=== PATIENT | female | born 1955 | race Caucasian/White ===

== ENCOUNTER 2016-09-23 17:22 | Inpatient (IN) | payer OTHER ==
[2016-09-23] MEDS ORDERED: Aspirin Low Dose CHEW TAB* 81 MG PO ONE (19:55)
[2016-09-23 21:11] LABS: Hematocrit 36 % (35-47); Hemoglobin 11.6 g/dl (12.0-16.0); Mean Corpuscular HGB Conc 32 g/dl (31-36); Mean Corpuscular Hemoglobin 29 pg (27-31); Mean Corpuscular Volume 89 fL (80-97); Mean Platelet Volume 11 um3 (7.4-10.4); Red Blood Count 4.02 10^6/ul (4.0-5.4); Red Cell Distribution Width 14 % (10.5-15); White Blood Count 8.3 10^3/ul (3.5-10.8)
[2016-09-23 21:27] LABS: Albumin 2.4 g/dL (3.2-5.2); BUN/Creatinine Ratio 21.5 (8-20); Calcium 8.2 mg/dL (8.6-10.3); EGFR African American 35.4 (>60); EGFR Non-African American 27.5 (>60); Globulin 2.9 g/dL (2-4); Potassium 5.4 mmol/L (3.5-5.0); Total Bilirubin 0.4 mg/dL (0.2-1.0); Total Protein 5.3 g/dL (6.4-8.9)
[2016-09-23 21:28] LABS: Troponin I 0.01 ng/mL (<0.04)
[2016-09-23] MEDS: NS 0.9% 1000 ML* 2,000 ML IV ONE (21:44)
--- NOTE | 2016-09-23 22:49 | ED ---
Angel Avelar Benjamin, scribed for Ghanshyam Mitchell MD on 09/23/16 at 2043 . HPI Diabetic - HPI Summary HPI Summary: 61yo female who is diabetic c/o N/V since med change 4 days ago. Pt is off insulin and is on januvia and metformin. Pt denies nausea or abd pain now. PT also reports high blood glucose. - History Of Current Complaint Chief Complaint: EDDiabeticProb Time Seen by Provider: 09/23/16 19:54 Hx Obtained From: Patient Onset/Duration: Gradual Onset, Lasting Days - 4 days ago, Still Present Timing: Constant Severity Initially: Mild Severity Currently: Mild Aggravating: Medication Change Associated Signs & Symptoms: Nausea, Vomiting - Allergies/Home Medications Allergies/Adverse Reactions: Allergies Allergy/AdvReac Type Severity Reaction Status Date / Time No Known Allergies Allergy Verified 09/23/16 17:24 PMH/Surg Hx/FS Hx/Imm Hx Endocrine/Hematology History: Reports: Hx Diabetes Cardiovascular History: Reports: Hx Atrial Fibrillation Musculoskeletal History: Denies: Hx Osteoporosis - Surgical History Surgery Procedure, Year, and Place: CARDIAC STENT PLACEMENT; TYMPANOPLASTY; C- SECTIONx3 Infectious Disease History: No Infectious Disease History: Denies: Traveled Outside the [place] in Last 30 Days - Family History Known Family History: Positive: Diabetes Negative: Cardiac Disease, Hypertension - Social History Occupation: Unemployed Lives: With Family Alcohol Use: None Substance Use Type: Reports: None Smoking Status (MU): Former Smoker Review of Systems Constitutional: Negative Eyes: Negative ENT: Negative Cardiovascular: Negative Respiratory: Negative Positive: Vomiting, Nausea. Negative: Abdominal Pain Genitourinary: Negative Musculoskeletal: Negative Skin: Negative Neurological: Negative Psychological: Normal All Other Systems Reviewed And Are Negative: Yes Physical Exam Triage Information Reviewed: Yes Vital Signs On Initial Exam: Initial Vitals Temp Pulse Resp BP Pulse Ox 97.8 F 71 18 152/81 100 09/23/16 17:24 09/23/16 17:24 09/23/16 17:24 09/23/16 17:24 09/23/16 17:24 Vital Signs Reviewed: Yes Appearance: Positive: Well-Appearing, No Pain Distress, Well-Nourished Skin: Positive: Warm, Skin Color Reflects Adequate Perfusion, Dry Head/Face: Positive: Normal Head/Face Inspection Eyes: Positive: Normal ENT: Positive: Normal ENT inspection Neck: Positive: Supple, Nontender Respiratory/Lung Sounds: Positive: Clear to Auscultation, Breath Sounds Present Cardiovascular: Positive: RRR, Pulses are Symmetrical in both Upper and Lower Extremities Abdomen Description: Positive: Nontender, Soft Bowel Sounds: Positive: Present Musculoskeletal: Positive: Strength/ROM Intact Neurological: Positive: Sensory/Motor Intact, Alert, Oriented to Person Place, Time, CN Intact II-III Psychiatric: Positive: Affect/Mood Appropriate Diagnostics - Vital Signs Vital Signs Temp Pulse Resp BP Pulse Ox 09/23/16 18:44 72 09/23/16 17:24 97.8 F 71 18 152/81 100 - Laboratory Lab Results: Lab Results 09/23/16 09/23/16 09/23/16 Range/Units 21:00 21:00 21:00 WBC 8.3 (3.5-10.8) 10^3/ul RBC 4.02 (4.0-5.4) 10^6/ul Hgb 11.6 L (12.0-16.0) g/dl Hct 36 (35-47) % MCV 89 (80-97) fL MCH 29 (27-31) pg MCHC 32 (31-36) g/dl RDW 14 (10.5-15) % Plt Count 191 (150-450) 10^3/ul MPV 11 H (7.4-10.4) um3 Neut % (Auto) 82.7 (38-83) % Lymph % (Auto) 13.0 L (25-47) % [place] % (Auto) 3.5 (1-9) % Eos % (Auto) 0 (0-6) % Baso % (Auto) 0.8 (0-2) % Absolute Neuts (auto) 6.8 (1.5-7.7) 10^3/ul Absolute Lymphs (auto) 1.1 (1.0-4.8) 10^3/ul Absolute Monos (auto) 0.3 (0-0.8) 10^3/ul Absolute Eos (auto) 0 (0-0.6) 10^3/ul Absolute Basos (auto) 0.1 (0-0.2) 10^3/ul Absolute Nucleated RBC 0 10^3/ul Nucleated RBC % 0 Sodium 125 L (133-145) mmol/L Potassium 5.4 H (3.5-5.0) mmol/L Chloride 88 L (101-111) mmol/L Carbon Dioxide 18 L (22-32) mmol/L Anion Gap 19 H (2-11) mmol/L BUN 40 H (6-24) mg/dL Creatinine 1.86 H (0.51-0.95) mg/dL Est GFR ( Amer) 35.4 (>60) Est GFR (Non-Af Amer) 27.5 (>60) BUN/Creatinine Ratio 21.5 H (8-20) Glucose 725 H* (70-100) mg/dL Lactic Acid 1.6 (0.5-2.0) mmol/L Calcium 8.2 L (8.6-10.3) mg/dL Total Bilirubin 0.40 (0.2-1.0) mg/dL AST 14 (13-39) U/L ALT 13 (7-52) U/L Alkaline Phosphatase 74 (34-104) U/L Troponin I 0.01 (<0.04) ng/mL Total Protein 5.3 L (6.4-8.9) g/dL Albumin 2.4 L (3.2-5.2) g/dL Globulin 2.9 (2-4) g/dL Albumin/Globulin Ratio 0.8 L (1-3) Result Diagrams: 09/23/16 21:00 09/23/16 21:00 Lab Statement: Any lab studies that have been ordered have been reviewed, and results considered in the medical decision making process. Diabetic Course/Dx - Course Course Of Treatment: Ms. Torres was found to be in DKA and started on IV NS and an insulin drip. - Diagnoses Provider Diagnoses: DKA (diabetic ketoacidoses) - Physician Notifications Discussed Care of Patient With: Dr. Bolton (Hospitalist) @[id number]. - Critical Care Time Critical Care Time: 30-74 min Discharge - Discharge Plan Condition: Stable Disposition: ADMITTED TO [facility] documentation as recorded by the Angel cardenas Benjamin accurately reflects the service I personally performed and the decisions made by , Ghanshyam Mitchell MD.
[2016-09-24] MEDS: NS 0.9% 1000 ML* 2,000 ML IV ONE (00:53)
[2016-09-24] MEDS: NS 0.9% 1000 ML* 1,000 ML IV SCH ×3 (01:50→19:27)
[2016-09-24 02:34] LABS: BUN/Creatinine Ratio 23.3 (8-20); Calcium 7.1 mg/dL (8.6-10.3); EGFR African American 36.8 (>60); EGFR Non-African American 28.6 (>60); Potassium 3.7 mmol/L (3.5-5.0)
[2016-09-24 07:30] LABS: BUN/Creatinine Ratio 21.6 (8-20); Calcium 7.2 mg/dL (8.6-10.3); EGFR African American 34.6 (>60); EGFR Non-African American 26.9 (>60); Potassium 3.7 mmol/L (3.5-5.0)
[2016-09-24 07:49] LABS: Magnesium 1.6 mg/dL (1.9-2.7); Phosphorus 3.1 mg/dL (2.5-5.0)
[2016-09-24] MEDS: Aspirin EC Low Dose* 81 MG TAB.EC PO SCH (08:30)
[2016-09-24] MEDS: Enalapril TAB* 5 MG PO SCH (08:30)
[2016-09-24] MEDS: ESTRADIOL 0.5 MG PO SCH (08:31)
[2016-09-24] MEDS ORDERED: CMCS Dabigatran CAP(NF) 150 MG CAP PO SCH (09:00)
[2016-09-24] MEDS ORDERED: Sotalol TAB* 80 MG PO SCH (09:00)
[2016-09-24] MEDS ORDERED: Insulin GLARGINE(*) 1 UNITS UNIT ONE (09:04)
[2016-09-24] MEDS: Insulin GLARGINE(*) 1 UNITS UNIT SUBCUT SCH (09:09)
[2016-09-24] MEDS: Metoprolol Succinate XL TAB* 25 MG PO SCH (09:19)
[2016-09-24] MEDS ORDERED: Dextrose 50% Syringe 50 ML* 25 GM/50 ML SYRINGE IV PUSH PRN (10:03)
--- NOTE | 2016-09-24 10:52 | PN ---
Subjective Date of Service: 09/24/16 Interval History: HOSPITALIST PROGRESS NOTE Patient seen and examined at bedside. She feels better this AM. Denies abdominal pain, N/V, feels hungry. No CP, palpitations, or dyspnea. Family History: Unchanged from Admission Social History: Unchanged from Admission Past Medical History: Unchanged from Admission Objective Active Medications: Aspirin (Aspirin Ec Low Dose*) 81 mg PO DAILY [facility] Last Admin: 09/24/16 08:30 Dose: 81 mg Dabigatran (Pradaxa Cap(Nf)) 75 mg PO BID [facility] Dextrose (D50w Syringe 50 Ml*) 12.5 gm IV PUSH .FOR FS < 60 - SS PRN PRN Reason: FS < 60 Enalapril Maleate (Vasotec Tab*) 2.5 mg PO DAILY [facility] Last Admin: 09/24/16 08:30 Dose: 2.5 mg Estradiol (Estradiol (Nf)) 2 mg PO DAILY [facility] Last Admin: 09/24/16 08:31 Dose: Not Given Magnesium Sulfate 3 gm/ Sodium (Chloride) 106 mls @ 53 mls/hr IVPB ONCE ONE Stop: 09/24/16 10:43 Last Admin: 09/24/16 09:19 Dose: 53 mls/hr Sodium Chloride (Ns 0.9% 1000 Ml*) 1,000 mls @ 150 mls/hr IV PER RATE [facility] Insulin Glargine (Lantus(*)) 15 units SUBCUT Q24H [facility] Last Admin: 09/24/16 09:09 Dose: 15 units Insulin Human Lispro (Humalog*) 0 units SUBCUT ACHS [facility] PRN Reason: Protocol Metoprolol Succinate (Toprol Xl Tab*) 25 mg PO DAILY [facility] Last Admin: 09/24/16 09:19 Dose: 25 mg Vital Signs 09/24/16 09/24/16 09/24/16 07:51 08:00 08:24 Temperature 98.4 F Pulse Rate 65 Respiratory 13 13 16 Rate Blood Pressure 110/42 (mmHg) O2 Sat by Pulse 98 Oximetry 09/24/16 09/24/16 09/24/16 09:00 09:34 10:00 Temperature Pulse Rate 77 68 Respiratory 18 13 13 Rate Blood Pressure 114/52 118/46 (mmHg) O2 Sat by Pulse 99 99 Oximetry Oxygen Devices in Use Now: None Appearance: Pleasant lady lying in bed in NAD. Eyes: No Scleral Icterus Ears/Nose/Mouth/Throat: Mucous Membranes Moist Neck: Trachea Midline Respiratory: Symmetrical Chest Expansion and Respiratory Effort, Clear to Auscultation Cardiovascular: RRR - Normal S1 and S2 Abdominal: NL Sounds; No Tenderness; No Distention Extremities: - - Moderate bilateral LE pitting edema Neurological: Alert and Oriented x 3, NL Muscle Strength and Tone Lines/Tubes/Other Access: Clean, Dry and Intact Peripheral IV Nutrition: Taking PO's Result Diagrams: 09/23/16 21:00 09/24/16 07:10 Assess/Plan/Problems-Billing Assessment: Mrs. Torres is a 61yo F with PMH of type 2 DM, HTN, CAD, Afib, who was recently switched from Lantus/Novalog to oral medications, who presented to ED with mild DKA. - Patient Problems (1) DKA (diabetic ketoacidosis) Comment: - Resolved. - Suspect etiology was recent change on medications. No signs of infection at this time. - Transition from insulin drip to Lantus/Lispro sliding scale. - Resume diet. - Continue IVF. - Check A1c. - Diabetes consult requested. (2) ARNOL (acute kidney injury) Comment: - Likely acute on chronic renal failure, pre-renal in the setting of DKA. - Continue IVF and monitor renal function. (3) Atrial fibrillation Comment: - In NSR now. - D/w Cardiology - Sotalol contraindicated due to her low GFR - will d/c it and start metoprolol succinate. - Adjust Pradaxa dose to her renal function. (4) DVT prophylaxis Comment: - Pradaxa. (5) Full code status Status and Disposition: Inpatient.
[2016-09-24] MEDS: Insulin LISPRO* 1 UNITS UNIT SUBCUT SCH ×3 (11:22→21:13)
[2016-09-24 14:07] LABS: BUN/Creatinine Ratio 23.2 (8-20); Calcium 7.3 mg/dL (8.6-10.3); EGFR African American 39.8 (>60); Potassium 4.1 mmol/L (3.5-5.0)
--- NOTE | 2016-09-24 17:12 | HP ---
HISTORY AND PHYSICAL: DATE OF ADMISSION: 09/24/16 CHIEF COMPLAINT: Nausea and vomiting. HISTORY OF PRESENT ILLNESS: The patient is a 61-year-old woman who presented to [facility] with a chief complaint of nausea and vomiting and increased sugars. She said her primary care doctor last week changed her from insulin to oral medications. Since then, her sugars have been slowly climbing. She was on 20 units of Lantus on a sliding scale. His concern was that her sugars were somewhat volatile during the day. However, they have been quite high. In the ER, her sugar was over 700 when she came in. Other than her nausea and vomiting, she denied any fevers, chills, chest pain, shortness of breath or abdominal pain. She had no increased frequency or pain on urination. PAST MEDICAL HISTORY: Significant for diabetes mellitus, atrial fibrillation, coronary artery disease with stent placed in August last year, chronic kidney disease. PAST SURGICAL HISTORY: Significant partial hysterectomy, tonsillectomy and ear surgery. ALLERGIES: She has no known drug allergies. CURRENT MEDICATIONS: 1. Sotalol 40 mg twice a day. 2. Januvia 50 mg daily. 3. Metformin 1000 mg twice a day. 4. Estradiol 2 mg daily. 5. Enalapril 2.5 mg daily. 6. Pradaxa 150 mg twice daily. 7. Aspirin 81 mg daily. FAMILY HISTORY: Father is at 82, alive and well. Mother in her 70s, had breast cancer. SOCIAL HISTORY: Ex-tobacco, quit 6 months ago. No recreational drug use. No alcohol. She is unemployed. She is . She has 3 children. Her father Aris Chadwick is her healthcare proxy. REVIEW OF SYSTEMS: A 14-point review of systems was completed with the patient. All pertinent positives and negatives are in the history of present illness, otherwise negative. PHYSICAL EXAMINATION GENERAL: Please woman, lying in bed, in no acute distress. VITAL SIGNS: Blood pressure 140/45, pulse ox is 98% on room air, respiratory rate 14 breaths per minute, temperature 99 degrees, heart rate 71 beats per minute. HEENT: Normocephalic, atraumatic. Pupils equal, round, reactive to light. Moist mucous membranes. NECK: Supple. No JVD, bruits, palpable thyroid, or lymphadenopathy. CHEST: Clear to auscultation and percussion bilaterally. CARDIOVASCULAR: S1, S2 appreciated. Regular rate and rhythm. ABDOMEN: Positive bowel sounds in all 4 quadrants. Soft, nontender, nondistended. No hepatosplenomegaly. EXTREMITIES: No cyanosis, clubbing, or edema. +2 peripheral pulses bilaterally. NEURO: Alert and oriented x3. Moves all extremities. SKIN: No rashes or abnormalities. LABORATORY DATA: Sodium 125, potassium 5.4, chloride 88, CO2 18, BUN 40, creatinine 1.86, glucose 725. White count 8.3, hemoglobin 9.6, hematocrit 36, platelets 191. EKG shows normal sinus rhythm, 75 beats per minute, normal axis , some nonspecific ST-T wave changes. ASSESSMENT AND PLAN: 1. Diabetic ketoacidosis. Very mild acidosis, but very high sugar and anion gap of 19. The patient is in ICU, placed on insulin drip, normal saline at ____ _ cc an hour, fingerstick q. 1 hour and will adjust treatment accordingly when her fingersticks fall below 200. She should be placed back on her insulin after discharge. 2. Atrial fibrillation. Continue Pradaxa and sotalol. 3. FEN. NPO until diabetic ketoacidosis resolves. 4. DVT prophylaxis. She is on Pradaxa. 5. The patient is a full code. TIME SPENT: Over 75 minutes was spent on this H and P; more than 40 minutes of which was spent in direct [id number] contact with the patient in evaluation, physical exam, counseling, and coordination of care. CC: Dr. Pugh* [id number]/CPS #: [id number] JASPER
[2016-09-24 20:17] LABS: BUN/Creatinine Ratio 24.8 (8-20); Calcium 7.2 mg/dL (8.6-10.3); EGFR African American 41.8 (>60); EGFR Non-African American 32.5 (>60); Potassium 4.5 mmol/L (3.5-5.0)
[2016-09-24] MEDS: DABIGATRAN 75 MG PO SCH (21:13)
[2016-09-25] MEDS: NS 0.9% 1000 ML* 1,000 ML IV SCH ×2 (02:16→09:20)
[2016-09-25 04:53] LABS: Hematocrit 30 % (35-47); Hemoglobin 10.1 g/dl (12.0-16.0); Mean Corpuscular HGB Conc 34 g/dl (31-36); Mean Corpuscular Hemoglobin 29 pg (27-31); Mean Corpuscular Volume 86 fL (80-97); Mean Platelet Volume 11 um3 (7.4-10.4); Red Blood Count 3.44 10^6/ul (4.0-5.4); Red Cell Distribution Width 14 % (10.5-15); White Blood Count 9.7 10^3/ul (3.5-10.8)
[2016-09-25 05:07] LABS: BUN/Creatinine Ratio 25.4 (8-20); Calcium 6.9 mg/dL (8.6-10.3); EGFR Non-African American 38.9 (>60); Potassium 3.6 mmol/L (3.5-5.0)
[2016-09-25] MEDS: Insulin LISPRO* 1 UNITS UNIT SUBCUT SCH ×4 (07:30→21:17)
[2016-09-25] MEDS: DABIGATRAN 75 MG PO SCH ×2 (09:17→21:17)
[2016-09-25] MEDS: Metoprolol Succinate XL TAB* 25 MG PO SCH (09:17)
[2016-09-25] MEDS: Enalapril TAB* 5 MG PO SCH (09:18)
[2016-09-25] MEDS: Insulin GLARGINE(*) 1 UNITS UNIT SUBCUT SCH (09:18)
[2016-09-25] MEDS: Aspirin EC Low Dose* 81 MG TAB.EC PO SCH (09:20)
[2016-09-25] MEDS: ESTRADIOL 0.5 MG PO SCH (09:20)
--- NOTE | 2016-09-25 11:56 | CONSULT ---
Subjective Reason for Visit: Diabetes education Admission Date: 09/23/16 History Of Present Illness: 61 year old woman with a 30 year history of diabetes admitted from the ER in mild diabetic ketoacidosis. Her diabetes had been managed for many years with basal insulin glargine and sliding scale coverage with short acting insulin. She was changed to oral medications by her PCP and had difficulty controlling her blood sugar levels. She experienced weight loss, polyurea and polydipsia and came to the ER when she had uncontrolled vomiting. She was admitted to ICU for treatment and transferred to a medical floor once her DKA had resolved. She feels very comfortable with using her glucometer and usually checks her blood sugar levels 4-5 times/day. When she was initially diagnosed with diabetes, she was told that she was type 2 but has been managed on insulin for as long as she can remember. Patient History Surgical History: Yes Surgery Procedure, Year, and Place: CARDIAC STENT PLACEMENT; TYMPANOPLASTY; C- SECTIONx3 Lives With: Family - Father and nephew Marital Status: - x2 Employed/Unemployed: Unemployed Smoking/Tobacco use: Quit - 6 months ago Immunizations: Influenza Objective Allergies Allergy/AdvReac Type Severity Reaction Status Date / Time No Known Allergies Allergy Verified 09/23/16 17:24 Home Medications Medication Instructions Recorded Confirmed Type Aspirin [Aspirin 81 MG TAB] 81 mg PO DAILY 09/23/16 09/23/16 History Dabigatran CAP(NF) [Pradaxa 150 mg PO BID 09/23/16 09/23/16 History CAP(NF)] Enalapril Maleate 2.5 mg PO DAILY 09/23/16 09/23/16 History Estradiol (NF) 2 mg PO DAILY 09/23/16 09/23/16 History Metformin HCl [Glucophage] 1,000 mg PO BID 09/23/16 09/23/16 History Sitagliptin Phosphate [Januvia] 50 mg PO DAILY 09/23/16 09/23/16 History Sotalol TAB* [Betapace 80 MG TAB*] 40 mg PO BID 09/23/16 09/23/16 History Hospital Medications: Current Medications Aspirin (Aspirin Ec Low Dose*) 81 mg PO DAILY [facility] Last Admin: 09/25/16 09:20 Dose: 81 mg Dabigatran (Pradaxa Cap(Nf)) 75 mg PO BID [facility] Last Admin: 09/25/16 09:17 Dose: 75 mg Dextrose (D50w Syringe 50 Ml*) 12.5 gm IV PUSH .FOR FS < 60 - SS PRN PRN Reason: FS < 60 Last Admin: 09/24/16 11:16 Dose: 12.5 gm Enalapril Maleate (Vasotec Tab*) 2.5 mg PO DAILY [facility] Last Admin: 09/25/16 09:18 Dose: 2.5 mg Estradiol (Estradiol (Nf)) 2 mg PO DAILY [facility] Last Admin: 09/25/16 09:20 Dose: 2 mg Insulin Glargine (Lantus(*)) 15 units SUBCUT Q24H [facility] Last Admin: 09/25/16 09:18 Dose: 15 units Insulin Human Lispro (Humalog*) 0 units SUBCUT ACHS [facility] PRN Reason: Protocol Last Admin: 09/25/16 07:30 Dose: Not Given Metoprolol Succinate (Toprol Xl Tab*) 25 mg PO DAILY [facility] Last Admin: 09/25/16 09:17 Dose: 25 mg Lab Data: Sodium 132 mmol/L (133-145) L 09/25/16 04:43 Potassium 3.6 mmol/L (3.5-5.0) 09/25/16 04:43 BUN 35 mg/dL (6-24) H 09/25/16 04:43 Creatinine 1.38 mg/dL (0.51-0.95) H 09/25/16 04:43 Hemoglobin A1c 9.5 % (Less than 6.0) H 09/23/16 21:00 Calcium 6.9 mg/dL (8.6-10.3) L 09/25/16 04:43 Magnesium 1.6 mg/dL (1.9-2.7) L 09/24/16 07:10 AST 14 U/L (13-39) 09/23/16 21:00 ALT 13 U/L (7-52) 09/23/16 21:00 Vital Signs: Vital Signs 09/25/16 09/25/16 09/25/16 04:24 07:27 07:36 Temperature 98.2 F 98.3 F Pulse Rate 72 68 Respiratory 16 16 16 Rate Blood Pressure 139/54 138/56 (mmHg) O2 Sat by Pulse 99 98 Oximetry Height: 5 ft 4 in Weight: 146 lb 13.246 oz Body Mass Index (BMI): 25.2 Physical Exam General Appearance: Positive: Alert, Oriented x3 Plan Of Care Patient's Next Step: Will be discharged home on Lantus and Humalog. Has a good understanding of use of insulin and glucose monitoring and is very comfortable with use of both. Would like some help with dietary choices and carbohydrate counting and is willing to have outpatient teaching at [facility]. Referral To: [facility] For Further OutPT Diabetic Training Education Prior Diabetic Education: Yes Handouts Provided: CDC: Take charge of your diabetes Goals Goals: According to the [place] [employer], the following are your goals for Hemaglobin A1C, Blood Glucose, Cholesterol and Blood Pressure. Hemaglobin A1C * <7.0% for most A total of 15 minutes was spent on patient counseling and education
--- NOTE | 2016-09-25 15:33 | PN ---
Subjective Date of Service: 09/25/16 Interval History: HOSPITALIST PROGRESS NOTE Patient seen and examined at bedside. She feels better today, denies N/V. Tolerating diet well. Denies dyspnea or palpitations, but has not moved much. Family History: Unchanged from Admission Social History: Unchanged from Admission Past Medical History: Unchanged from Admission Objective Active Medications: Aspirin (Aspirin Ec Low Dose*) 81 mg PO DAILY [facility] Last Admin: 09/25/16 09:20 Dose: 81 mg Dabigatran (Pradaxa Cap(Nf)) 75 mg PO BID [facility] Last Admin: 09/25/16 09:17 Dose: 75 mg Dextrose (D50w Syringe 50 Ml*) 12.5 gm IV PUSH .FOR FS < 60 - SS PRN PRN Reason: FS < 60 Last Admin: 09/24/16 11:16 Dose: 12.5 gm Enalapril Maleate (Vasotec Tab*) 2.5 mg PO DAILY [facility] Last Admin: 09/25/16 09:18 Dose: 2.5 mg Estradiol (Estradiol (Nf)) 2 mg PO DAILY [facility] Last Admin: 09/25/16 09:20 Dose: 2 mg Insulin Glargine (Lantus(*)) 15 units SUBCUT Q24H [facility] Last Admin: 09/25/16 09:18 Dose: 15 units Insulin Human Lispro (Humalog*) 0 units SUBCUT ACHS [facility] PRN Reason: Protocol Last Admin: 09/25/16 11:57 Dose: 4 unit Metoprolol Succinate (Toprol Xl Tab*) 25 mg PO DAILY [facility] Last Admin: 09/25/16 09:17 Dose: 25 mg Vital Signs 09/25/16 09/25/16 07:36 11:09 Temperature 97.8 F Pulse Rate 74 Respiratory 16 16 Rate Blood Pressure 154/70 (mmHg) O2 Sat by Pulse 100 Oximetry Oxygen Devices in Use Now: None Appearance: Pleasant lady lying in bed in NAD. Eyes: No Scleral Icterus Ears/Nose/Mouth/Throat: Mucous Membranes Moist Neck: Trachea Midline Respiratory: Symmetrical Chest Expansion and Respiratory Effort, Clear to Auscultation Cardiovascular: NL Sounds; No Murmurs; No JVD, RRR Abdominal: NL Sounds; No Tenderness; No Distention Extremities: - - Mild bilateral LE edema Neurological: Alert and Oriented x 3, NL Muscle Strength and Tone Lines/Tubes/Other Access: Clean, Dry and Intact Peripheral IV Nutrition: Taking PO's Result Diagrams: 09/25/16 04:43 09/25/16 04:43 Assess/Plan/Problems-Billing Assessment: Mrs. Torres is a 61yo F with PMH of type 2 DM, HTN, CAD, Afib, who was recently switched from Lantus/Novalog to oral medications, who presented to ED with mild DKA. - Patient Problems (1) DKA (diabetic ketoacidosis) Comment: - Resolved. - Suspect etiology was recent change on medications. No signs of infection at this time. - Continue Lantus/Lispro sliding scale. - D/c IVF. - Diabetes consult requested. (2) ARNOL (acute kidney injury) Comment: - Likely acute on chronic renal failure, pre-renal in the setting of DKA. - Resolved, but patient already has some CKD. (3) Atrial fibrillation Comment: - In NSR now. - Her GFR appears to be below 40 at baseline, so Sotalol may not be her best choice. Cardiology consult requested to assist with antiarrhythmics. - Pradaxa dose adjusted to her renal function. (4) DVT prophylaxis Comment: - Pradaxa. (5) Full code status Status and Disposition: Inpatient. Anticipate d/c in AM.
[2016-09-25] MEDS: Sotalol TAB* 80 MG PO SCH (22:45)
--- NOTE | 2016-09-26 05:52 | CONS ---
CARDIOLOGY CONSULTATION: DATE OF CONSULT: 09/25/16 REASON FOR CONSULT: Antiarrhythmic management. CHIEF COMPLAINT ON ADMISSION: Nausea and vomiting. HISTORY OF PRESENT ILLNESS: Ms. Torres is a 61-year-old woman followed by my partner, Dr. Bell, for paroxysmal atrial fibrillation and has been on sotalol for a long period of time. The patient was admitted with nausea, vomiting, and elevated glucose levels and found to be in DKA, felt to be related to recent changes in her diabetic regimen. She has chronic renal insufficiency and her sotalol was stopped as a precaution. This consultation is to decide how to best manage her antiarrhythmics. The patient states she has never had problems with sotalol, no side effects. She states that currently she is feeling back to herself. She had questions that I could not answer about her insulin regimen when she leaves. She denies recent chest pain, pressure, heaviness, and she has been walking around the halls without any exercise intolerance. PAST MEDICAL HISTORY: The patient has a past medical history of: 1. Paroxysmal atrial fibrillation. 2. Coronary artery disease, status post stent placement, 2016. 3. Chronic renal insufficiency. 4. Diabetes. MEDICATIONS: Current inpatient medications include: 1. Aspirin 81 mg a day. 2. Pradaxa 75 mg a day. 3. Vasotec 2.5 mg a day. 4. Estradiol 2 mg a day. 5. Lantus insulin. 6. Humalog insulin. 7. Toprol-XL 25 mg a day (Sotalol 40 mg b.i.d. stopped). ALLERGIES: The patient has no known medication allergies. FAMILY HISTORY: Significant that her mother with breast cancer in her 70s. Her father is 82 and alive. SOCIAL HISTORY: The patient stopped smoking 6 months ago. No history of alcohol intake or recreational drug use. REVIEW OF SYSTEMS: No history of recent chest pain, pressure, or heaviness. No dizziness. No palpitations. See history of present illness for other pertinent positives and negatives. PHYSICAL EXAMINATION: Vital signs: On exam, the patient is 5 feet 4 inches, weighs 146 pounds with a BMI of 25.2. Blood pressure 141/55, pulse is 77 and regular, sats 99% on room air, and she is afebrile at 98.1. General appearance : Mildly overweight, somewhat older woman, in no acute distress. Psychologically, calm, cooperative, and pleasant. Neurological: Awake, alert, and oriented to person, place, and time. Cranial nerves II through XII intact. Grossly normal sensory and motor function in the upper and lower extremities. Gait is normal while walking on the floor. Skin: Warm and dry. No appreciable cyanosis. HEENT: Pupils equal and round. Mucous membranes are moist. Neck: Without increased JVP or thyromegaly appreciated. Lungs: Clear with good effort. No wheezes, rales, or rhonchi. Coronary: S1, S2 regular without murmurs or rubs. Abdomen: Soft. No epigastric discomfort. No hepatosplenomegaly or masses. Extremities: The lower extremities were warm and free of edema with easily palpable posterior tibial pulses. DIAGNOSTIC STUDIES/LAB DATA: A 12-lead ECG on admission 09/24/16 at 2017 hours shows sinus rhythm at 75 beats a minute, QRS axis +30 with normal AV and IV conduction times. She has a corrected QT interval of 444 milliseconds and a QT interval of 397 milliseconds. She does have diffuse ST depression in the precordial leads. EKG done at 1 in the morning on 09/24/16 has a corrected QT interval of 442 milliseconds. Rhythm strips today showed at 1836 hours, she had a 15-second run of SVT 150 beats a minute, P-waves are seen and this is most suggestive of ectopic atrial rhythm, but cannot rule out AFib or flutter. Labs, from today white count 9.7, hemoglobin 10, hematocrit 30, and platelets 169. Sodium 132, potassium 3.6, glucose 115, BUN 35, creatinine 1.38 (on admission sodium 125, potassium 5.4, BUN 40, creatinine 1.86, bicarb 18, and glucose 725). Troponin 0.01 on admission. Lipids from 05/06/16 shows total cholesterol 220, triglycerides 136, LDL cholesterol 119, and HDL cholesterol 74. SUMMARY: Renata Torres is a 61-year-old woman with paroxysmal atrial fibrillation , has been on sotalol 40 mg b.i.d., for many years and has longstanding renal insufficiency with a GFR estimated at 39 this admission. Sotalol is renally excreted, but her QT intervals have been stable and in looking at her creatinine , over time it is a bit higher this year and in January 2016, her creatinine was 1.08 that has been between 1.3 and 1.9 in 2017. Options going forward will be to continue the sotalol at the low dose of 40 mg b.i.d. as she has had good intervals and versus converting to a different agent. I think the only other agents that would be appropriate for her would be Multaq, which is weaker than sotalol or amiodarone. The patient informs to me that she has recently had lung nodules and is not anxious or really interested in starting on medications that could contribute to worsening pulmonary abnormalities. I propose to the patient that we resume the sotalol at her previous dose and follow up with Dr. Bell this month and within week to get a followup EKG and he can reevaluate for the possibility of different antiarrhythmics in the future. The risk and benefits of this plan and the presence of renal insufficiency was discussed with the patient. She is comfortable and prefers this plan of action as opposed to initiation of a new antiarrhythmic or risking recurrence of atrial fibrillation. CC: Hospitalist Service; Dr. Pugh; Dr. Bell* [id number]/[facility] #: [id number] MTDD
[2016-09-26] MEDS: Insulin LISPRO* 1 UNITS UNIT SUBCUT SCH (09:04)
[2016-09-26 09:16] VITALS: BP 173/70
[2016-09-26] MEDS: ESTRADIOL 0.5 MG PO SCH (09:16)
[2016-09-26] MEDS: Sotalol TAB* 80 MG PO SCH (09:17)
[2016-09-26] MEDS: Enalapril TAB* 5 MG PO SCH (09:18)
[2016-09-26] MEDS: DABIGATRAN 75 MG PO SCH (09:19)
[2016-09-26] MEDS: Aspirin EC Low Dose* 81 MG TAB.EC PO SCH (09:20)
[2016-09-26] MEDS: Insulin GLARGINE(*) 1 UNITS UNIT SUBCUT SCH (09:20)
--- NOTE | 2016-09-27 05:38 | DS ---
DISCHARGE SUMMARY: DATE OF ADMISSION: 09/24/16 DATE OF DISCHARGE: 09/26/16 PRIMARY CARE PROVIDER: Dr. Pugh. BARREL RIBS SOLDERER: Dr. Portillo. DISCHARGE DIAGNOSES: 1. Diabetic ketoacidosis. 2. Acute on chronic renal failure. 3. Hyponatremia. 4. Mild hypokalemia. 5. Metabolic acidosis. SECONDARY DIAGNOSES: 1. Type 2 diabetes. 2. Atrial fibrillation. 3. Coronary artery disease, status post stent. 4. Chronic kidney disease stage 3. MEDICATIONS: 1. Estradiol 2 mg p.o. daily. 2. Enalapril 2.5 mg p.o. daily. 3. Pradaxa 150 mg p.o. b.i.d. 4. Aspirin 81 mg p.o. daily. 5. Sotalol 40 mg p.o. b.i.d. 6. Lantus 15 units subcutaneously at bedtime. 7. NovoLog sliding scale as follows: Fingerstick 131 to 150, 1 unit; 151 to 200, 2 units; 201 to 250, 4 units; 251 to 300, 6 units; 301 to 350, 8 units; 351 to 400, 10 units; greater than 400, call PCP. HOSPITAL COURSE: Ms. Torres is a 61-year-old lady with a past medical history as stated above that presented to the emergency room with complaints of nausea, vomiting, and high sugar on her monitor. A week prior to admission, she had seen her PCP and had been changed from her usual regimen of insulin to oral medications (Januvia and metformin). The patient states that she was diagnosed with diabetes 30 years ago and she has been on insulin from the start, although she was diagnosed as type 2. In the emergency room, she was found to have a glucose of 725 with metabolic acidosis and acute renal failure. She was initially admitted to the intensive care unit on the diagnosis of DKA, started on an insulin drip, and later on transitioned back to Lantus and a rapid insulin sliding scale. The patient's hemoglobin A1c is 9.5 and she was seen in consultation by dragline operator (Mendy Chavez NP) and the plan is for the patient to follow at [facility] for further diabetes management, but at this point, the decision is to return her to an insulin regimen. With her acute renal failure, the patient's GFR became too low for sotalol and she needed metoprolol. Her renal function improved back to her baseline GFR of 38, so she was seen in consultation by Cardiology (Dr. Lazo) to decide what would be the best antiarrhythmic for this patient. Dr. Lazo's impression is that the patient has a history of paroxysmal atrial fibrillation, has been on sotalol 40 mg b.i.d. for many years and has longstanding renal insufficiency with GFR estimated at 39. Sotalol was renally excreted, but her QT interval has been stable and in looking at her creatinine over time, it has been a bit higher in 2017. Options going forward will be to continue sotalol at a low dose of 40 b.i.d. as she has had good intervals versus converting to a different agent. Dr. Lazo felt that Multaq and amiodarone would be appropriate, but the patient was not interested in changing at this time. After discussing with the patient, Dr. Lazo proposed to resume sotalol at 40 mg b.i.d. and follow up with Dr. Portillo this coming week to have a followup EKG. An EKG was performed on the day of discharge and it showed sinus rhythm with a normal QT interval. I also talked to Dr. Portillo and he is aware that the patient will follow up with him next week to monitor her QT interval. The patient received extensive diabetes education and she will try to watch her diet closely at home. She is medically stable for discharge at this time. PHYSICAL EXAMINATION: Vital Signs: Temperature 97.3, heart rate is 68, respiratory rate is 16, oxygen saturation is 99% on room air, blood pressure is 148/64. General: The patient is a pleasant lady sitting up in the bed in no acute distress. CVS: Normal S1, S2. Regular rate and rhythm. Chest: Breath sounds present bilaterally with no added sounds. Abdomen is soft. Bowel sounds are present. Extremities: No edema. Neuro: She is alert, awake, and oriented x3. Able to move all 4 extremities. DIET: Heart healthy, consistent carbohydrate diet. ACTIVITY: As tolerated. DISPOSITION: To home. STATUS IN THE HOSPITAL: Inpatient. Please keep in mind this is a summarized version of this patient's hospital stay. If you need more information, please feel free to call me at [phone] or please obtain the full medical records. TIME SPENT: Approximately 45 minutes was spent to complete this discharge. CC: Dr. Pugh; Dr. Portillo* [id number]/[facility] #: [id number] [facility]PITAL[facility]etal
== END 2016-09-26 11:47 | disposition home or self-care (01) | DRG 420 ==
LOC: ED 17:22 → ICU 09-24 01:19 → MEDTELE 09-24 18:26
PROVIDERS: ADMIT Internal Medicine; ATTEND Internal Medicine
DX: E13.10 Other specified diabetes mellitus with ketoacidosis without coma (principal); N17.9 Acute kidney failure, unspecified; N18.3 Chronic kidney disease, stage 3 (moderate); E87.1 Hypo-osmolality and hyponatremia; I48.0 Paroxysmal atrial fibrillation; E87.6 Hypokalemia; E11.22 Type 2 diabetes mellitus with diabetic chronic kidney disease; I25.10 Atherosclerotic heart disease of native coronary artery without angina pectoris; Z95.5 Presence of coronary angioplasty implant and graft; Z79.82 Long term (current) use of aspirin; Z79.4 Long term (current) use of insulin; Z79.01 Long term (current) use of anticoagulants; Z83.3 Family history of diabetes mellitus; Z87.891 Personal history of nicotine dependence; Z90.711 Acquired absence of uterus with remaining cervical stump; Z80.3 Family history of malignant neoplasm of breast
CPT/HCPCS: 36415; 80048; 80053; 82947; 83036; 83605; 83735; 84100; 84484; 85025; 87641; 93005; A9270-GY; J3475

== ENCOUNTER 2018-03-18 06:59 | Day surgery (SDC) | payer OTHER ==
--- NOTE | 2018-03-16 16:01 | HP ---
CONTINUATION OF HISTORY AND PHYSICAL DATE OF ADMISSION: 03/18/2018. ALLERGIES: No known drug allergies. FAMILY HISTORY: Mother in her late 70s from liver cancer. Father, no current medical probl ems. There is a strong family history of heart disease and diabetes. SOCIAL HISTORY: , lives with her father, currently unemployed. She is a former smoker who q uit one year ago, previously smoking one pack a day for 45 years. She denies the use of alcohol or o ther substances. MARITZA PINA, HONE OPERATOR [id number]/[facility] #: [id number]
--- NOTE | 2018-03-16 16:01 | HP ---
CC: Dr. Pugh; Dr. Kush Clay; Dr. Rodriguez * DATE OF ADMISSION: 03/18/2018. This patient is scheduled for Same Day Surgery admission by Dr. Giorgio Pace. DATE OF PREOPERATIVE HISTORY AND PHYSICAL EXAMINATION: Friday, March 16, 2018. ATTENDING SURGEON: Dr. Giorgio Pace * (dictated by Eva Pina NP). CHIEF COMPLAINT: End-stage renal disease. HISTORY OF PRESENT ILLNESS: The patient is a 62-year-old female referred to Dr. Pace from Dr. Conroy with a diagnosis of end-stage renal disease and consideration for laparoscopic placement of a peritoneal dialysis catheter. She has had a rising creatinine in the past 18 months and has discussed various methods of dialysis with Dr. Conroy and is current pursuing peritoneal dialysis. Her creatinine on 02/20/2018 was 4.47 and she will have a repeat P3 with preadmission testing today. Dr. Pace has reviewed the nature of the surgical procedure, the relevant risks and complications, and today I reviewed the typical postoperative care and recovery. The patient has had a chance to ask questions and stated that she understands the information and is satisfied with the answers given to her questions. She will sign surgical consent on the day of surgery. PAST MEDICAL HISTORY: Type 1 diabetes since 1988, she has been on a [employer] insulin pump since April 2017 and established care with Dr. Kush Clay from [facility] earlier this month, previously she was followed by Dr. Simpson. She also has a history of coronary artery disease, status post PTCA with stenting of one coronary artery September 2015. Paroxysmal atrial fibrillation, currently on anticoagulation; a Holter monitor in January 2018 revealed normal sinus rhythm with a rare PAC, rare PVC, no evidence of atrial fibrillation; hypertension; hyperlipidemia; former smoker; chronic kidney disease stage 4. PAST SURGICAL HISTORY: section times three, complete hysterectomy in [place], repair of left tympanic membrane, and tonsillectomy. MEDICATIONS: 1. Ezetimibe 10 mg p.o. daily. 2. Metoprolol 25 mg one-half tablet b.i.d. 3. Eliquis 2.5 mg one tablet every 12 hours, she took her last preoperative dose on 03/14/2018. 4. Lipitor 80 mg p.o. daily. 5. Ventolin inhaler two puffs q.i.d. prn. 6. Estradiol 2 mg one-half tablet p.o. daily. 7. Aspirin 81 mg p.o. daily, which has been on hold since 03/14/2018. 8. Torsemide 20 mg two tablets p.o. daily. 9. Insulin pump as regulated by Dr. Kush Clay from [facility]. She states it is on auto mode and shuts off when her blood glucose is 70 or less and increases when her blood glucose is high. 10. Enalapril 5 mg p.o. daily. 11. Calcitriol 0.25 mcg one capsule daily. 12. Humalog 100 units per ml in her pump. ALLERGIES: No known drug allergies. FAMILY HISTORY: Mother in her late 70s from liver cancer. Father, no current medical problems. There is a strong family history of heart disease and diabetes. SOCIAL HISTORY: , lives with her father, currently unemployed. She is a former smoker who quit one year ago, previously smoking one pack a day for 45 years. She denies the use of alcohol or other substances. REVIEW OF SYSTEMS: Constitutional: No fevers, chills, excessive fatigue or weight loss. Endocrine: Type 1 diabetes on an insulin pump. This morning's fingerstick blood sugar 127. She is followed by Dr. Kush Clay from [facility]. She did not seem knowledgeable or comfortable discussing the dosing of the insulin pump or what advice she would be given when she was fasting, so we have contacted Dr. Clay's office for assistance. No known thyroid disease. Hematologic: No easy bruising or bleeding while on the Eliquis. Respiratory: No chronic cough, no dyspnea on exertion. She quit smoking about a year ago. Cardiovascular: No anginal chest pain, palpitations, or orthopnea. No dizziness or syncopal episodes. She saw Dr. Rodriguez on 03/11/2018. Please see the attached note for details. Echocardiogram, March 2017, revealed an ejection fraction of 60 percent. Nuclear stress test, September 2017, revealed normal perfusion. Holter monitor, January 2018, revealed normal sinus rhythm with rare PAC and PVC. Gastrointestinal: No nausea, vomiting, diarrhea, GI bleeding, or constipation. Genitourinary: No dysuria. Musculoskeletal: No complaints of joint or back pain. Skin: No chronic rashes or ulcerations or skin changes. Neurologic: No headache or blurred vision or areas of focal weakness or numbness. General: No history of anesthesia complications. No history of deep vein thrombosis or pulmonary embolism. She has never received a blood transfusion. PHYSICAL EXAMINATION GENERAL: The patient is a 62-year-old female, well-developed, well-nourished, in no acute distress. VITAL SIGNS: Height 62 inches, weight 140 pounds, body mass index 25.6. Blood pressure 122/58, pulse 72 and regular, respiratory rate 16, temperature 98.6 tympanic. SKIN: Warm, dry, intact. HEENT: Benign. NECK: Supple, no cervical lymphadenopathy, no supraclavicular lymphadenopathy. BACK: No CVA tenderness. LUNGS: Breath sounds bilaterally clear and equal. HEART: Regular rate and rhythm. No murmurs or rubs appreciated. ABDOMEN: Active bowel sounds. Insulin pump right lower quadrant. No obvious masses or organomegaly or evidence of ventral hernia. Well-healed lower midline surgical scar. No incisional hernia. EXTREMITIES: Warm without edema or skin ulcerations. PELVIC: Exam deferred. RECTAL: Exam deferred. NEUROLOGIC: Alert and oriented times three, steady gait. IMPRESSION: End-stage renal disease. PLAN: Same Day Surgery admission to Dr. Pace's service for laparoscopic placement of peritoneal dialysis catheter. MARITZA PINA NP [id number]/[facility] #: [id number]/[facility] #: [id number] JASPER
[~2018-03-18 06:59] MED LIST: Buffered Lidocaine 0.9% SYRIN* 5 ML/SYR SYRINGE INTRADERM ONE; Famotidine IV* 10 MG/ML 2 ML (20 mg) IV ONE; NS 0.45% 1000 ML BAG* 1,000 ML IV SCH
[2018-03-18] MEDS ORDERED: Famotidine IV* 10 MG/ML 2 ML (20 mg) ONE (07:14)
[2018-03-18] MEDS ORDERED: ceFAZolin 2 GM in NS PREMIX(*) 2 GM/100 ML BAG IVPB ONE (07:14)
[2018-03-18] MEDS ORDERED: Heparin DIALYSIS ONLY(*) 1,000 UNITS/ML VIAL ONE (08:03)
[2018-03-18] MEDS ORDERED: Bupivacaine 0.25% EPI 200,000* 30 ML SDV ONE (08:03)
[2018-03-18] MEDS ORDERED: KETAMINE HCL* 50 MG/ML 10 ML VIAL ONE (08:06)
[2018-03-18] MEDS ORDERED: Midazolam* 1 MG/ML 5 ML VIAL (5 MG) ONE (08:06)
[2018-03-18] MEDS ORDERED: Cisatracurium* 2 MG/ML MDV 5 ML ONE (08:06)
[2018-03-18] MEDS ORDERED: fentaNYL* 50 MCG/ML 2 ML VIAL (100 MCG VIAL) ONE (08:06)
[2018-03-18] MEDS ORDERED: Lidocaine 2% PF * 5 ML VIAL ONE (08:06)
[2018-03-18] MEDS ORDERED: Ondansetron INJ* 2 MG/ML VIAL ONE (08:06)
[2018-03-18] MEDS ORDERED: Propofol* 10 MG/ML 20 ML BTL IV PUSH ONE (08:06)
[2018-03-18] MEDS ORDERED: Metoclopramide IV* 5 MG/ML 2 ML VIAL ONE (09:06)
[2018-03-18] MEDS ORDERED: EPHEDrine (Pressors)* 50 MG/ML VIAL ONE (09:17)
[2018-03-18] MEDS ORDERED: Naloxone* 0.4 MG/ML 1 ML VIAL IV PRN (09:51)
[2018-03-18] MEDS ORDERED: oxyCODONE/Acetamin 5/325 MG* TAB PO PRN (09:51)
[2018-03-18] MEDS ORDERED: fentaNYL* 50 MCG/ML 2 ML VIAL (100 MCG VIAL) IV PRN (09:51)
[2018-03-18] MEDS ORDERED: Ondansetron INJ* 2 MG/ML VIAL IV PRN (09:51)
[2018-03-18 11:37] VITALS: BP 162/71
--- NOTE | 2018-03-19 03:06 | OP ---
CC: Dr. Pugh; Dr. Kush Clay; Dr. Rodriguez; Dr. Dru Conroy * DATE OF OPERATION: 03/18/18 - SDS DATE OF : 55 SURGEON: Giorgio Pace MD MECHANICAL DEVELOPER PROVER: RHINA Garzon ANESTHESIOLOGIST: Dr. Cano. ANESTHESIA: General. PRE-OP DIAGNOSIS: End-stage renal disease. POST-OP DIAGNOSIS: End-stage renal disease. OPERATIVE PROCEDURE: Laparoscopic placement of peritoneal dialysis catheter. ESTIMATED BLOOD LOSS: Minimal. FLUIDS: Minimal crystalloid fluid given. A 57-cm Curl Cath type catheter placed in the pelvis and in the exit site at the left lower quadrant. COUNTS: Lap pad count and instrument count correct at the end of the procedure. The patient was extubated and transferred to the PACU stable. INDICATIONS: Ms. Torres is a patient with end-stage renal disease for planned dialysis. The case was discussed of a peritoneal dialysis catheter placement for this purpose. The patient agreed and consent signed. She was identified in the preoperative area. She was marked appropriately understanding where her belt line was and taken to the operating room. In the operating room, sequential devices were placed on bilateral lower extremities. Preoperative antibiotics were given and general anesthesia was induced. The patient's abdomen was then prepped and draped in the standard surgical fashion. The time- out was performed. Incision was made at the mid clavicular line just 2 fingerbreadths below the coastal margin at the palmar's point. This was deepened down to the anterior fascia, which was elevated and a Veress needle inserted into the abdominal cavity which was then allowed to insufflate to a pressure of 15 mmHg. The patient tolerated the insufflation well. Veress needle was then removed and an 8-mm trocar inserted. Laparoscope was inserted through this. There was no evidence of injury from the trocar insertion or from the Veress needle. Review of the abdomen showed no significant adhesions. The patient was status post hysterectomy. Bladder was still somewhat enlarged despite the patient voiding preoperatively. There was scant free fluid in the pelvis. An additional 5-mm trocar was then placed in the left lower quadrant. Next, a 57-cm Curl Cath catheter was inserted into the abdomen, it was placed into the pelvis, it laid in the appropriate fashion and then next, a 5-mm trocar was tunneled along the left rectus muscle and the tip of the Curl catheter was drawn in through this and brought out through this incision ensuring that both cuffs were outside the abdomen with the distal cuff being right at the peritoneal margin in the musculature. Next after injection of lidocaine along the proposed tunnel, the catheter was tunneled to the left lower quadrant port site after going superiorly first. Catheter was hooked up to the dialysate, which flowed easily without complication and then was removed with equal ease. An omentopexy was performed with an 0 Polysorb suture making a small right upper quadrant stab incision and taking up omentum at this site in the suture. Next, the abdomen was allowed to collapse, trocar was removed, and the left upper quadrant incision was closed with an 0-Polysorb suture in a simple fashion , and all the skin incisions were reapproximated with 4-0 Monocryl subcuticular sutures followed by Steri-Strips and sterile dressing. [id number]/[facility] #: [id number] JASPER
== END 2018-03-18 11:52 | disposition home or self-care (01) ==
LOC: OR 06:59
PROVIDERS: ATTEND Surgery
DX: N18.6 End stage renal disease (principal); E10.9 Type 1 diabetes mellitus without complications; Z96.41 Presence of insulin pump (external) (internal); Z79.4 Long term (current) use of insulin; I12.0 Hypertensive chronic kidney disease with stage 5 chronic kidney disease or end stage renal disease; Z79.01 Long term (current) use of anticoagulants; I25.10 Atherosclerotic heart disease of native coronary artery without angina pectoris; Z95.5 Presence of coronary angioplasty implant and graft; I48.0 Paroxysmal atrial fibrillation; Z87.891 Personal history of nicotine dependence
CPT/HCPCS: J0690; J1644; J2250; J2405; J2704; J2765; J3010

== ENCOUNTER → 2018-11-09 08:32 | Day surgery (SDC) | payer OTHER ==
[~2018-11-09 08:32] MED LIST changes: -Buffered Lidocaine 0.9% SYRIN* 5 ML/SYR SYRINGE INTRADERM ONE; +Diazepam TAB(*) 5 MG ONE; -Famotidine IV* 10 MG/ML 2 ML (20 mg) IV ONE; +Heparin 2 UNITS/ML IVPREMIX* 2,000 UNIT/1,000 ML BAG IV ONE; +Heparin(*) 1000 UNIT/ML 10 ML VIAL CATH LAB IV ONE; +Iodixanol 320 (CONTRAST) 100 ML SDV ONE; +Lidocaine 1% INJ* 10 MG/ML 30 ML SDV ONE; +Midazolam* 1 MG/ML 5 ML VIAL (5 MG) ONE; -NS 0.45% 1000 ML BAG* 1,000 ML IV SCH; +NS 0.9% 1000 ML** 1,000 ML IV SCH; +VERAPAMIL 2.5 MG/ML 2 ML VIAL ** 5 mg/2 ml ONE; +diPHENhydraMINE PO* 25 MG ONE; +fentaNYL* 50 MCG/ML 2 ML VIAL (100 MCG VIAL) ONE; +nitroGLYCERIN DRIP* 25,000 MCG/250 ML BTL ONE
[2018-11-09 12:35] VITALS: BP 168/95
--- NOTE | 2018-11-09 20:50 | CATH ---
CC: [facility] Renal Transplant Team, [place] [address]; Dr. Mares, [facility] CARDIAC CATHETERIZATION REPORT: DATE OF PROCEDURE: PROCEDURE: Cardiac catheterization including coronary angiography. INDICATION: Coronary artery disease, preop for renal and pancreatic transplant. The patient is a 63-year-old female with a history of diabetes, end-stage renal disease who is being evaluated for transplant. Cardiac catheterization was recommended by the transplant team at [facility]. DESCRIPTION OF PROCEDURE: The patient was brought to the procedure room in a fasting state. Informe d consent had been obtained prior to the procedure. All labs were reviewed. The patient was placed supine on the procedure table. Her right radial area was prepped and draped in the usual fashion. L idocaine 1% was used for local anesthesia. The radial artery was entered by Seldinger technique and a guidewire was placed. Over the guidewire, a 6-Welsh hydrophilic sheath was placed. Through the s leonora, an infusion of heparin, nitroglycerin, and verapamil was done. The patient underwent coronary angiography using a 6-Welsh TIG catheter and a 6-Welsh AR1 catheter. At the end of the procedure, all sheaths and catheters were removed. The patient tolerated the procedure well, no complications. A total of 40 cc of Omnipaque dye was used. A total of 8.5 minutes of fluoro time was used. FINDINGS: Left main artery: The left main was normal in size. It bifurcated into the LAD and circum flex. There was no evidence of stenosis. Left anterior descending artery: The LAD was normal in size. It gave off 1 large diagonal branch. The proximal LAD had moderate calcification. There was an eccentric 50% stenosis to the proximal LAD . Left circumflex artery: The circumflex artery was normal in size. It gave off 2 obtuse marginal bra nches. There was no evidence of stenosis. Right coronary artery: The RCA was a large dominant vessel. It gave off the PDA and a large postero lateral branch. The proximal portion of the right coronary artery had moderate calcification. There was a 20% stenosis of the proximal right coronary artery. The stent to the distal right coronary ar estella was open and patent with no restenosis. The posterolateral branch and PDA off the right coronar y artery had no significant disease. IMPRESSION: 1. Calcification of the left anterior descending with an eccentric 50% stenosis to the proximal left anterior descending. 2. Stent to the right coronary artery is open and patent. 3. Calcification of the proximal right coronary artery with a 20% stenosis. RECOMMENDATION: The patient will continue on maximum medical therapy. The patient will be evaluated for transplant per [facility] in [place]. [id number]/[facility] #: [id number]
== END | disposition home or self-care (01) ==
LOC: CHICATH 08:32
PROVIDERS: ATTEND Specialist
DX: I25.10 Atherosclerotic heart disease of native coronary artery without angina pectoris (principal); N18.5 Chronic kidney disease, stage 5; Z95.5 Presence of coronary angioplasty implant and graft; Z79.01 Long term (current) use of anticoagulants; E10.21 Type 1 diabetes mellitus with diabetic nephropathy; Z79.4 Long term (current) use of insulin; Z96.41 Presence of insulin pump (external) (internal); I48.0 Paroxysmal atrial fibrillation; I10 Essential (primary) hypertension; E78.5 Hyperlipidemia, unspecified; Z87.891 Personal history of nicotine dependence
CPT/HCPCS: 93454; A9270-GY; J1644; J2250; J3010

== ENCOUNTER 2019-03-11 11:25 | Emergency (ER) | payer MEDICARE, MEDICAID ==
[2019-03-11 11:58] LABS: ABS Eosinophils 0.1 10^3/ul (0-0.6); ABS Lymphocytes 0.7 10^3/ul (1.0-4.8); ABS Monocytes 0.3 10^3/ul (0-0.8); ABS Neutrophils 3.2 10^3/ul (1.5-7.7); Eosinophil % 1.7 %; Hematocrit 34 % (35-47); Hemoglobin 11.6 g/dL (12.0-16.0); Lymphocyte % 16.5 %; Mean Corpuscular HGB Conc 35 g/dL (31-36); Mean Corpuscular Hemoglobin 31 pg (27-31); Mean Corpuscular Volume 90 fL (80-97); Mean Platelet Volume 9.8 fL (7.4-10.4); Platelet Count 128 10^3/uL (150-450); Red Blood Count 3.72 10^6 /uL (3.70-4.87); Red Cell Distribution Width 15 % (10-15); White Blood Count 4.4 10^3/uL (3.5-10.8)
[2019-03-11 12:14] LABS: BUN/Creatinine Ratio 11.3 (8-20); Calcium 8.5 mg/dL (8.6-10.3); EGFR African American 12.2 (>60); EGFR Non-African American 10.1 (>60); Globulin 2.9 g/dL (2-4); Potassium 3.5 mmol/L (3.5-5.0); Total Bilirubin 0.6 mg/dL (0.2-1.0); Total Protein 5.9 g/dL (6.4-8.9)
[2019-03-11] MEDS ORDERED: NS 0.9% 1000 ML** 1,000 ML IV ONE (12:44)
[2019-03-11] MEDS ORDERED: Insulin REGULAR(*) 1 UNITS UNIT SUBCUT ONE (12:46)
--- NOTE | 2019-03-11 13:22 | ED ---
HPI Diabetic - HPI Summary HPI Summary: Patient is a 63 y/o F type 1 diabetic presenting to [facility] with complaints of high blood sugars. Patient is reported to have had a BG of 531 earlier today, PCP had instructed her to come to ED for evaluation. In ED, finger stick taken by nurse Britt was 203 BG. Patient denies Sx at present and states that she feels "fine". She does note that she had BG of around 600 last night. She has an insulin pump. On triage, pain is denied, nothing is noted to aggravate/ alleviate Sx. Home medications and allergies are reviewed. - History Of Current Complaint Chief Complaint: EDDiabeticProb Time Seen by Provider: 03/11/19 12:44 Hx Obtained From: Patient Onset/Duration: Resolved - BG 203 per nurse Britt Severity Currently: None Character: Alert Aggravating: Nothing Alleviating: Nothing Associated Signs & Symptoms: Negative - Allergies/Home Medications Allergies/Adverse Reactions: Allergies Allergy/AdvReac Type Severity Reaction Status Date / Time No Known Allergies Allergy Verified 03/11/19 11:29 PMH/Surg Hx/FS Hx/Imm Hx Endocrine/Hematology History: Reports: Hx Anticoagulant Therapy - Pradaxa, Hx Diabetes Denies: Hx Blood Disorders, Hx Blood Transfusions, Hx Bone Marrow Disease, Hx Systemic Lupus Erythematosus, Hx Sickle Cell Disease, Hx Thyroid Disease, Hx Anemia, Hx Unexplained Bleeding, Other Endocrine/Hematological Disorders Cardiovascular History: Reports: Hx Angioplasty - stent placement, Hx Atrial Fibrillation, Hx Coronary Artery Disease, Hx Hypercholesterolemia, Hx Hypertension Denies: Hx Aneurysm, Hx Angina, Hx Auto Implanted Cardiovert Defib, Hx Cardiac Arrest, Hx Cardiomegaly, Hx Congenital Heart Disease, Hx Congestive Heart Failure, Hx Deep Vein Thrombosis, Hx Embolism, Hx Hypotension, Hx Myocardial Infarction, Hx Pacemaker/ICD, Hx Peripheral Vascular Disease, Hx Rheumatic Fever, Hx Syncope, Hx Valvular Heart Disease, Other Cardiovascular Problems/Disorders Respiratory History: Reports: Hx Chronic Obstructive Pulmonary Disease (COPD) Denies: Hx Asthma, Hx Chronic Bronchitis, Hx Cystic Fibrosis, Hx Lung Cancer , Hx Pleural Effusion, Hx Pneumonia, Hx Pulmonary Edema, Hx Pulmonary Embolism, Hx Seasonal Allergies, Hx Sleep Apnea, Other Respiratory Problems/Disorders GI History: Denies: Hx Cirrhosis, Hx Crohn's Disease, Hx Diverticulosis, Hx Gall Bladder Disease, Hx Gastroesophageal Reflux Disease, Hx Gastrointestinal Bleed, Hx Hiatal Hernia, Hx Irritable Bowel, Hx Jaundice, Hx Obstructive Bowel, Hx Ileostomy, Hx Pyloric Stenosis, Hx Ulcer, Other GI Disorders History: Reports: Hx Chronic Renal Failure Denies: Hx Acute Renal Failure, Hx Benign Prostatic Hyperplasia, Hx Dialysis , Hx Kidney Infection, Hx Kidney Stones, Other Problems/Disorders Musculoskeletal History: Denies: Hx Arthritis, Hx Back Problems, Hx Bursitis, Hx Congenital Bone Abnormalities, Hx Fibromyalgia, Hx Gout, Hx Orthopedic Injury, Hx Osteoporosis, Hx Scoliosis, Hx Tendonitis, Other Musculoskeletal History Sensory History: Reports: Hx Contacts or Glasses Denies: Hx Cataracts, Hx Eye Injury, Hx Eye Prosthesis, Hx Glaucoma, Hx Legally Blind, Hx Macular Degeneration, Hx Vision Problem, Hx Deafness, Hx Hearing Aid, Hx Hearing Problem, Other Sensory Impairments Opthamlomology History: Reports: Hx Contacts or Glasses Denies: Hx Cataracts, Hx Eye Injury, Hx Eye Prosthesis, Hx Glaucoma, Hx Legally Blind, Hx Macular Degeneration, Hx Vision Problem, Other Sensory Impairments Neurological History: Denies: Hx Dementia, Hx Developmental Delay, Hx Headaches, Hx Migraine, Hx Nerve Disease, Hx Seizures, Hx Spinal Cord Injury, Hx Transient Ischemic Attacks (TIA), Other Neuro Impairments/Disorders Psychiatric History: Denies: Hx Anxiety, Hx Attention Deficit Hyperactivity Disorder, Hx Eating Disorder, Hx Depression, Hx Panic Disorder, Hx Post Traumatic Stress Disorder, Hx Inpatient Treatment, Hx Community Mental Health Tx, Hx Schizophrenia, Hx Bipolar Disorder, Hx Suicide Attempt, Hx of Violent Episodes Against Others, Hx Substance Abuse, Other Psychiatric Issues/Disorders - Cancer History Hx Chemotherapy: No Hx Radiation Therapy: No - Surgical History Surgery Procedure, Year, and Place: CARDIAC STENT PLACEMENT; TYMPANOPLASTY; C- SECTIONx3, HYSTERECTOMY. DIALYSIS CATH Hx Anesthesia Reactions: No Infectious Disease History: No Infectious Disease History: Denies: Hx Clostridium Difficile, Hx Hepatitis, Hx Human Immunodeficiency Virus (HIV), Hx of Known/Suspected MRSA, Hx Shingles, Hx Tuberculosis, History Other Infectious Disease, Traveled Outside the [place] in Last 30 Days - Family History Known Family History: Positive: Diabetes Negative: Cardiac Disease, Hypertension - Social History Alcohol Use: None Substance Use Type: Reports: None Smoking Status (MU): Former Smoker Type: Cigarettes Length of Time of Smoking/Using Tobacco: since age 13 Have You Smoked in the Last Year: Yes Review of Systems Constitutional: Other - complaints of high BG Negative: Fever - on vitals, temp is 98.8 F Neurological: Other - negative - AMS All Other Systems Reviewed And Are Negative: Yes Physical Exam - Summary Physical Exam Summary: VITAL SIGNS: Reviewed. GENERAL: Patient is a well-developed and nourished female who is lying comfortable in the stretcher. Patient is not in any acute respiratory distress. HEAD AND FACE: No signs of trauma. No ecchymosis, hematomas or skull depressions. No sinus tenderness. EYES: PERRLA, EOMI x 2, No injected conjunctiva, no nystagmus. EARS: Hearing grossly intact. Ear canals and tympanic membranes are within normal limits. MOUTH: Oropharynx within normal limits. NECK: Supple, trachea is midline, no adenopathy, no JVD, no carotid bruit, no c- spine tenderness, neck with full ROM. CHEST: Symmetric, no tenderness at palpation. LUNGS: Clear to auscultation bilaterally. No wheezing or crackles. CVS: Regular rate and rhythm, S1 and S2 present, no murmurs or gallops appreciated. ABDOMEN: Soft, non-tender. No signs of distention. No rebound, no guarding, and no masses palpated. Bowel sounds are normal. There is an insulin pump at the left side of her abdomen. EXTREMITIES: FROM in all major joints, no edema, no cyanosis or clubbing. NEURO: Alert and oriented x 3. No acute neurological deficits. Speech is normal and follows commands. SKIN: Dry and warm. Triage Information Reviewed: Yes Vital Signs On Initial Exam: Initial Vitals Temp Pulse Resp BP Pulse Ox 98.8 F 64 18 182/80 100 03/11/19 11:28 03/11/19 11:28 03/11/19 11:28 03/11/19 11:28 03/11/19 11:28 Vital Signs Reviewed: Yes Diagnostics - Vital Signs Vital Signs Temp Pulse Resp BP Pulse Ox 03/11/19 11:28 98.8 F 64 18 182/80 100 - Laboratory Lab Results: Lab Results 03/11/19 03/11/19 03/11/19 Range/Units 11:48 11:48 11:48 WBC 4.4 (3.5-10.8) 10^3/uL RBC 3.72 (3.70-4.87) 10^6 /uL Hgb 11.6 L (12.0-16.0) g/dL Hct 34 L (35-47) % MCV 90 (80-97) fL MCH 31 (27-31) pg MCHC 35 (31-36) g/dL RDW 15 (10-15) % Plt Count 128 L (150-450) 10^3/uL MPV 9.8 (7.4-10.4) fL Neut % (Auto) 73.6 % Lymph % (Auto) 16.5 % [place] % (Auto) 7.2 % Eos % (Auto) 1.7 % Baso % (Auto) 1.0 % Absolute Neuts (auto) 3.2 (1.5-7.7) 10^3/ul Absolute Lymphs (auto) 0.7 L (1.0-4.8) 10^3/ul Absolute Monos (auto) 0.3 (0-0.8) 10^3/ul Absolute Eos (auto) 0.1 (0-0.6) 10^3/ul Absolute Basos (auto) 0.0 (0-0.2) 10^3/ul Absolute Nucleated RBC 0.0 10^3/ul Nucleated RBC % 0.0 VBG pH 7.35 (7.32-7.43) VBG pCO2 56 H (41-51) mmHg VBG pO2 < 38.0 (35-45) mmHg VBG HCO3 26.2 (24-28) mmol/L VBG O2 Saturation 35.5 L (70-80) % VBG Base Excess 3.8 (0.0-4.0) mmol/L Sodium 131 L (135-145) mmol/L Potassium 3.5 (3.5-5.0) mmol/L Chloride 94 L (101-111) mmol/L Carbon Dioxide 30 (22-32) mmol/L Anion Gap 7 (2-11) mmol/L BUN 50 H (6-24) mg/dL Creatinine 4.41 H (0.51-0.95) mg/dL Est GFR ( Amer) 12.2 (>60) Est GFR (Non-Af Amer) 10.1 (>60) BUN/Creatinine Ratio 11.3 (8-20) Glucose 333 H (70-100) mg/dL Calcium 8.5 L (8.6-10.3) mg/dL Total Bilirubin 0.60 (0.2-1.0) mg/dL AST 26 (13-39) U/L ALT 43 (7-52) U/L Alkaline Phosphatase 105 H (34-104) U/L Total Protein 5.9 L (6.4-8.9) g/dL Albumin 3.0 L (3.2-5.2) g/dL Globulin 2.9 (2-4) g/dL Albumin/Globulin Ratio 1.0 (1-3) Result Diagrams: 03/11/19 11:48 03/11/19 11:48 Lab Statement: Any lab studies that have been ordered have been reviewed, and results considered in the medical decision making process. Diabetic Course/Dx - Course Assessment/Plan: Patient is a 63 y/o F type 1 diabetic presenting to [facility] with complaints of high blood sugars. Patient is reported to have had a BG of 531 earlier today, PCP had instructed her to come to ED for evaluation. In ED, finger stick taken by nurse Lorenza was 203 BG. Patient denies Sx at present and states that she feels "fine". She does note that she had BG of around 600 last night. She has an insulin pump. Blood test results without any significant abnormality except for a slight normocytic normochromic anemia, sodium is 131, chloride 94, BUN is 50 creatine 4.4 which is her baseline. The patient is an end-stage renal disease patient and on hemodialysis. Glucose is 333, calcium 8.5 and total protein 5.9. The VBG shows a pH of 7.35. The patient has been drinking fluids since she left the primary care physician office and a repeat fingerstick before I order regular insulin IV showed BG to be only 203. Since the patient is not in DKA, and the sugar was 203 the patient will be discharged home with follow-up with primary care physician and projector operator for better control of her sugar. The patient could use to be asymptomatic and alert and oriented 3. - Diagnoses Provider Diagnoses: Uncontrolled diabetes mellitus, Hyperglycemia, ESRD (end stage renal disease) Discharge ED - Sign-Out/Discharge Documenting (check all that apply): Patient Departure - discharge Patient Received Moderate/Deep Sedation with Procedure: No - Discharge Plan Condition: Stable Disposition: HOME Patient Education Materials: Diabetic Hyperglycemia (ED) Referrals: Dru Conroy MD [Primary Care Provider] - 3 Days Additional Instructions: PLEASE RETURN TO THE EMERGENCY DEPARTMENT FOR ANY NEW OR WORSENING SYMPTOMS. PLEASE FOLLOW UP WITH YOUR PRIMARY CARE PHYSICIAN WITHIN THREE DAYS. - Billing Disposition and Condition Condition: STABLE Disposition: Home - Attestation Statements Document Initiated by Larisa: Yes Documenting Scribe: MISA SÁNCHEZ Provider For Whom Larisa is Documenting (Include Credential): SCOT PHILIP MD Scribe Attestation: IMISA, scribed for SCOT PHILIP MD on 03/12/19 at 0846. Scribe Documentation Reviewed: Yes Provider Attestation: The documentation as recorded by the MISA cardenas accurately reflects the service I personally performed and the decisions made by me, SCOT PHILIP MD Status of Scribe Document: Viewed
[2019-03-11 13:50] VITALS: BP 134/76
== END 2019-03-11 13:40 | disposition home or self-care (01) ==
LOC: ED 11:25
DX: E10.65 Type 1 diabetes mellitus with hyperglycemia (principal); E10.22 Type 1 diabetes mellitus with diabetic chronic kidney disease; I12.0 Hypertensive chronic kidney disease with stage 5 chronic kidney disease or end stage renal disease; N18.6 End stage renal disease; I48.91 Unspecified atrial fibrillation; I25.10 Atherosclerotic heart disease of native coronary artery without angina pectoris; E78.00 Pure hypercholesterolemia, unspecified; Z95.5 Presence of coronary angioplasty implant and graft; Z79.01 Long term (current) use of anticoagulants; J44.9 Chronic obstructive pulmonary disease, unspecified; F90.9 Attention-deficit hyperactivity disorder, unspecified type
CPT/HCPCS: 36415; 80053; 82803; 85025; 93005; 99283

== ENCOUNTER 2019-08-28 21:41 | Emergency (ER) | payer MEDICARE, MEDICAID ==
--- OUTSIDE RECORDS SUMMARY | 2019-08-28 22:01 | XMS REPORT | Continuity of Care Document ---
:1955 External Reference #:[id number] Author Name Kush Clay MD (transmitted by agent of provider Duyen Perez) Address [address] [address] Care Team Providers Name Role Phone Dru Conroy MD - Nephrology Care Team Information Typewriter Repairer Pierre Noyola MD - Gastroenterology Care Team Information Typewriter Repairer Terri Almanza MD - Internal Medicine Care Team Information Typewriter Repairer Problems Active Problems Provider Date Type 1 diabetes mellitus uncontrolled Orlando Pugh M.D. Onset: 2016 Essential hypertension Orlando Pugh M.D. Onset: 02/13/2016 Chronic atrial fibrillation Orlando Pugh M.D. Onset: 02/13/2016 Mixed hyperlipidemia Orlando Pugh M.D. Onset: 02/13/2016 Patient post percutaneous transluminal Orlando Pugh M.D. Onset: 2015 coronary angioplasty Edema Orlando Pugh M.D. Onset: 07/22/2016 Sprain of shoulder and upper arm Millie Beal M.D. Onset: 08/02/2016 Calcium deposits in tendon Millie Beal M.D. Onset: 08/02/2016 Disorder of lung Orlando Pugh M.D. Onset: 09/02/2016 Coronary atherosclerosis Jennifer Portillo MD, [facility], Onset: 09/30/2016 [facility] Paroxysmal atrial fibrillation Orlando Pugh M.D. Onset: 10/03/2016 Hand joint pain Orlando Pugh M.D. Onset: 02/03/2017 Chronic kidney disease stage 3 Jennifer Portillo MD, [facility], Onset: 03/06/2017 [facility] Type 1 diabetes mellitus Orlando Pugh M.D. Onset: 12/23/2017 Adult health examination Orlando Pugh M.D. Onset: 12/23/2017 Gastroduodenitis Orlando Pugh M.D. Onset: 01/14/2018 Social History Type Date Description Comments Sex Unknown Tobacco Use Start: Unknown End: Former Cigarette Smoker Unknown Tobacco Use Start: Unknown End: Former Cigarette Smoker 1 Unknown Pack Daily Cigarette Use Pack Years - 45 Smoking Status Reviewed: 07/22/19 Former Cigarette Smoker 1 Pack Daily ETOH Use Denies alcohol use Recreational Drug Use Denies Drug Use Tobacco Use Start: Unknown End: Patient is a former smoker Unknown Exercise Type/Frequency Does not exercise Allergies, Adverse Reactions, Alerts Description No Known Drug Allergies Medications Active Medications SIG Qnty Indications Ordering Date Provider Humulin N Kwikpen 10 units in the 9ml E10.22 Kush Clay MD 07/22/2019 evening or as 100Unit/ML Supn directed; MDD 25 Azithromycin two tabs day one, 6tabs J20.9 Odilia Varn, 07/14/2019 250mg one daily till N.P. Tablets gone Fluticasone 2 sprays each 16gm J20.9 Odilia Varn, 07/14/2019 Propionate nostril daily as N.P. 50mcg/Act needed Suspension Benzonatate one by mouth 30caps J20.9 Odilia Varn, 07/14/2019 100mg three times daily N.P. Capsules as needed for cough Enalapril Maleate 2 by mouth every 60tabs Terri Almanza MD 04/28/2019 5mg day Tablets Novolog Flexpen 4 units with each 15ml E10.22 Kush Clay MD 04/13/2019 meal, 3 times per 100Unit/ML Solution day MDD 30 units Pen-Inject Pen [place] 11/05" use 4 times daily 200units E10.22 Kush Clay MD 2018 31G with Basaglar and X 8 mm Misc Novolog insulin Torsemide 3 by mouth twice Kush Clay MD 08/05/2018 20mg daily Tablets Lancet Device use 4 times daily 1units Kush Clay MD 08/05/2018 Misc with lancet to check blood sugar. Dispense 1 lancing device Metolazone 1 tab by mouth 30 14tabs Orlando 05/21/2018 5mg minutes in the Dianne Pugh Tablets morning before torsemide ( Not Taking ) [id number] Standard mmt 864 replace 30units Kush Clay MD 03/31/2018 every other day 4"X5-1/2 Misc dx e10.9 Ezetimibe take 10mg by 30tabs E78.5 Tico Carlos 03/03/2018 10mg mouth daily Dinane Rodriguez Tablets Metoprolol Tartrate 1/2 tab by mouth 90tabs Giorgio Jara, 02/17/2018 twice a day DO FACC 25mg Tablets Eliquis take 1 tablet by 180tabs I48.0 Tico Gonzalez 01/08/2018 2.5mg Tablets mouth every 12 iDanne Rodriguez hours Lipitor 1 by mouth every 90tabs Tico Gonzalez 06/17/2017 80mg Tablets day Dianne Rodriguez Ventolin HFA Inhale Two Puffs 18units J44.9 Terri Almanza MD 08/30/2016 By Mouth Four 108(90Base) mcg/Act Times A Day as Aerosol Needed Glucagon Emergency use as directed 2units Orlando 02/27/2016 Dianne Pugh 1mg Kit Nitrostat one sl q5min up 25tabs I25.10 Tico Gonzalez 02/27/2016 0.4mg to 3 doses as Dianne Rodriguez Tablets Sub needed Estradiol 1/2 tab by mouth 30tabs Terri Almanza MD 2mg Tablets every day Aspirin 1 by mouth every Unknown 81mg Tablets day Calcitcassandra Take One Capsule Unknown 0.25mcg By Mouth Every Capsules Other Day Contour Next Link Use 4 Unknown Blood Glucose Monitoring System w/Device Kit Contour Next Blood use 6 times daily 200units E10.22 Kush Clay MD Glucose Test with insulin Strips injection and as needed Auryxia 1 by mouth three Unknown 1GM 210 times a day mg(Fe) Tablets contains 200 mg iron History Medications Freestyle Rashid 14 use at least [address] [facility], 04/13/2019 - Day/[place]/Flash times daily 05/04/2019 Monitoring System with sensor Device Freestyle Rashid [address] place one 2units E10.[address] [facility], 04/13/2019 - Day/Sensor/Flash sensor every 05/04/2019 Monitoring System 14 days Misc Novolin R Relion 6 units with 10ml E10.[address] [facility], 04/09/2019 - 100Unit/ML meals, mdd 30 05/04/2019 Solution Novolin N Relion 12 units at 10ml E10.[address] [facility], 04/09/2019 - 100Unit/ML bedtime, MDD 05/04/2019 Suspension 30 Medications Administered in Office Medication SIG Qnty Indications Ordering Provider Date Inj, Regadenoson, 0.1 MG Tico Rodriguez M.D. 10/16/2018 Injection Technetium TC 99M TetrofosminTico M.D. 10/16/2018 Per Unit Dose Up To 40 Millicuries Injection Technetium TC 99M TetrofosminTico M.D. 10/16/2018 Per Unit Dose Up To 40 Millicuries Injection PPD Unknown 05/26/2018 Injection Inj, Regadenoson, 0.1 MG Tico Rodriguez M.D. 10/17/2017 Injection Technetium TC 99M TetrofosminTico M.D. 10/17/2017 Per Unit Dose Up To 40 Millicuries Injection Immunizations CPT Code Status Date Vaccine Reaction Lot # [id number] Given 08/12/2018 Pneumococcal Conjugate no immediate reaction [id number] Vaccine 13 Valent For noted Intramuscular Use 30556 Given 04/14/2018 Hepatitis B Vaccine Adult [id number] Dosage 63739 Given 04/14/2018 Influenza Virus Vaccine, [id number] Quadrivalent, Split, Preservative Free 19393 Given 12/23/2017 Measles Mumps And Rubella [id number] MMR 66803 Given 11/11/2017 Hepatitis B Vaccine Adult [id number] Dosage 92042 Given 10/10/2017 Hepatitis B Vaccine Adult [id number] Dosage 48602 Given 04/02/2016 Influ Virus Vaccine, no reaction, pt [id number] Quadrivalent, Split Virus, tolerated well Im Fluzone not PF Vital Signs Date Vital Result Comment 07/22/2019 1:04pm Height 62 inches 5'2" Weight 141.00 lb w/ shoes Heart Rate 63 /min BP Systolic Sitting 117 mmHg BP Diastolic Sitting 60 mmHg BMI (Body Mass Index) 25.8 kg/m2 07/14/2019 11:17am Height 62 inches 5'2" Weight 139.00 lb Heart Rate 64 /min BP Systolic 91 mmHg BP Diastolic 51 mmHg Body Temperature 97.6 F O2 % BldC Oximetry 97 % BMI (Body Mass Index) 25.4 kg/m2 Results Test Acquired Date Facility Test Result H/L Range Note Laboratory test 04/23/2019 [facility] C-Peptide <0.1 ng/mL Abnormal 1.1 - 4.4 1 finding [address] [place] [address] [phone] Fructosamine 268 mcmol/L 200 - 285 2 Lipid Profile 04/23/2019 [facility] Triglycerides 68 mg/dL 3 (Trig/Chol/HDL) [address] [place] [address] [phone] Cholesterol 120 mg/dL 4 HDL Cholesterol 51.6 mg/dL 5 LDL Cholesterol 55 mg/dL 6 HGB + HCT 04/08/2019 N2N/CCD Import Hematocrit 31.7 Low 37.0 - 47.0 Hemoglobin 10.7 Low 12.0 - 16.0 HCT Calc (HGBX3) 32.1 Low 37.0 - 47.0 PTH Intact 03/25/2019 N2N/CCD Import PTH Intact 132 High 18 - 80 Ferritin 03/25/2019 N2N/CCD Import Ferritin 194 10 - 291 Hemoglobin A1c % 03/25/2019 N2N/CCD Import Hemoglobin A1c % 7.4 High 0.0 - 5.6 Calcium Corrected 03/25/2019 N2N/CCD Import Calcium Corrected 9.3 8.7 - 10.4 Alt/SGPT 03/25/2019 N2N/CCD Import Alt/SGPT 41 10 - 49 Glucose 03/25/2019 N2N/CCD Import Glucose 145 High 70 - 99 CBC With Autodiff 03/25/2019 N2N/CCD Import WBC 4.2 Low 4.5 - 11.0 RBC 3.47 Low 4.20 - 5.40 Hematocrit 32.3 Low 37.0 - 47.0 Hemoglobin 10.8 Low 12.0 - 16.0 MCV 93.1 80.0 - 100.0 MCH 31.2 High 27.0 - 31.0 MCHC 33.5 32.0 - 36.0 Platelet-CT 118 Low 150 - 400 Neuts-Abs 2715.12 2000 - 8800 Lymphs-Abs 993.03 Low 1100 - 4800 Monos-Abs 243.02 0 - 1100 Basos-Abs 71.23 0 - 400 Eosins-Abs 167.60 0 - 700 HCT Calc (HGBX3) 32.4 Low 37.0 - 47.0 Basophils 1.7 Neutrophils 64.8 Lymphocytes 23.7 Monocytes 5.8 Eosinophils 4.0 RDW 14.4 11.0 - 15.0 Chem I HD 03/25/2019 N2N/CCD Import Alk Phos 100 46 - 116 Albumin 2.8 Low 3.2 - 4.8 Calcium 8.3 Low 8.7 - 10.4 Chloride 99 99 - 109 Co2 31 20 - 31 LDH, Total 270 High 120 - 246 Phosphorus 4.0 2.4 - 5.1 Potassium 3.5 3.5 - 5.5 Ast/Sgot 29 0 - 34 Protein - Total 4.8 Low 5.7 - 8.2 A/G Ratio 1.4 1 - 2.5 Globulin 2.0 0.9 - 5 [place] Product 33.2 21 - 53 [place] Corrected 37.2 21 - 53 Iron Panel 03/25/2019 N2N/CCD Import Iron 83 50 - 170 Iron Saturation 38 16 - 46 Tibc 221 Low 250 - 450 Uibc 138 80 - 375 Lipid Profile 03/25/2019 N2N/CCD Import Cholesterol 128 0 - 199 Triglycerides 88 0 - 149 HDL 54 40 - 60 Chol/HDL Ratio 2.4 Low 3.3 - 5 LDL 56 0 - 99 VLDL-Chol (Calc) 18 0 - 29 Venous Blood Gas 03/11/2019 N2N/CCD Import Venous Bicarbonate Hco3 26.2 24-28 Venous Blood Base Excess 3.8 0.0-4.0 Venous O2 Saturation 35.5 Low 70-80 Venous Po2 < 38.0 35-45 Venous Pco2 56 High 41-51 Venous Blood PH 7.35 7.32-7.43 CBC Auto Diff 03/11/2019 N2N/CCD Import Nucleated Red Blood Cells % 0.0 Basophil % 1.0 Eosinophil % 1.7 Monocyte % 7.2 Lymphocyte % 16.5 Granulocyte % 73.6 Abs Nucleated RBC 0.0 Abs Basophils 0.0 0-0.2 Abs Eosinophils 0.1 0-0.6 Abs Monocytes 0.3 0-0.8 Abs Lymphocytes 0.7 Low 1.0-4.8 Abs Neutrophils 3.2 1.5-7.7 Mean Platelet Volume 9.8 7.4-10.4 Platelet Count 128 Low 150-450 Red Cell Distribution Width 15 10-15 Mean Corpuscular HGB Conc 35 31-36 Mean Corpuscular Hemoglobin 31 27-31 Mean Corpuscular Volume 90 80-97 Hematocrit 34 Low 35-47 Hemoglobin 11.6 Low 12.0-16.0 Red Blood Count 3.72 3.70-4.87 White Blood Count 4.4 3.5-10.8 Comprehensive Metabolic 03/11/2019 N2N/CCD Import Blood Urea Nitrogen 50 High 6-24 Panel Egfr 12.2 >60 Egfr Non- 10.1 >60 Ast 26 13-39 Alt 43 7-52 Alkaline Phosphatase 105 High 34-104 Total Bilirubin 0.60 0.2-1.0 Albumin/Globulin Ratio 1.0 1-3 Globulin 2.9 2-4 Albumin 3.0 Low 3.2-5.2 Total Protein 5.9 Low 6.4-8.9 Calcium 8.5 Low 8.6-10.3 BUN/Creatinine Ratio 11.3 8-20 Creatinine 4.41 High 0.51-0.95 Glucose 333 High 70-100 Anion Gap 7 2-11 Co2 Carbon Dioxide 30 22-32 Chloride 94 Low 101-111 Potassium 3.5 3.5-5.0 Sodium 131 Low 135-145 Point Of Care 03/11/2019 N2N/CCD Import Point Of Care 208 High 70-100 Glucose Glucose 0416 03/11/2019 N2N/CCD Import BUN 32 High 9 - 23 Creatinine 3.59 High 0.50 - 1.10 NPCR PD 0.71 Creat-PD 1.71 Urea-PD 19 Urea CLR Ur/Bsa 5.1 Low 64 - 99 Cre CLR Ur/Bsa 13 Low 75 - 115 Urea CLR Ur 4.8 Minuts Collctd-Ur 1440 Tot.Vol.-Urine 1180 Tot.Vol.-PDF [id number] Urea Gen Rate 6.5 Urea Nit Urine 188 Creat-Ur 52.59 Bsa ([place]) 1.64 Body WT (LBS) 140 Height (Inches) 62 TBW Tripp 30.43 Pna (PD) 48.2 Npna-PD 0.92 Loren (PD) 4.4 Min Goal:KT/V PD 2.1 PCR PD 37.4 Amputation Factor 0 Cre CLR Ur 12 Low 88 - 128 L/WK/1.73 Resid cc 89.19 L/WK PDF cc 37.89 L/WK/1.73 Total cc 129.06 L/WK Resid cc 84.76 L/WK/1.73 PDF cc 39.87 L/WK Total cc 122.65 KT/V PDF 1.55 KT/V Residual 1.59 KT/V Total PD 3.15 HGB + HCT 03/11/2019 N2N/CCD Import Hematocrit 34.5 Low 37.0 - 47.0 Hemoglobin 11.1 Low 12.0 - 16.0 HCT Calc (HGBX3) 33.3 Low 37.0 - 47.0 Glucose 03/11/2019 N2N/CCD Import Glucose 328 High 70 - 99 CBC Auto Diff 02/25/2019 N2N/CCD Import Mean Corpuscular Volume 90 80- 97 Hematocrit 31 Low 35-47 Hemoglobin 10.9 Low 12.0-16.0 Red Blood Count 3.45 Low 3.70-4.87 White Blood Count 4.7 3.5-10.8 Nucleated Red Blood Cells % 0.0 Basophil % 0.8 Eosinophil % 3.4 Monocyte % 7.9 Lymphocyte % 21.7 Granulocyte % 66.2 Abs Nucleated RBC 0.0 Abs Basophils 0.0 0-0.2 Abs Eosinophils 0.2 0-0.6 Abs Monocytes 0.4 0-0.8 Abs Lymphocytes 1.0 1.0-4.8 Abs Neutrophils 3.1 1.5-7.7 Mean Platelet Volume 12.0 High 7.4-10.4 Platelet Count 92 Low 150-450 Red Cell Distribution Width 14 10-15 Mean Corpuscular HGB Conc 35 31-36 Mean Corpuscular Hemoglobin 32 High 27-31 Comprehensive Metabolic 02/24/2019 N2N/CCD Import Egfr 14.0 >60 Panel English Egfr Non- 11.6 >60 Ast 35 13-39 Alt 49 7-52 Alkaline Phosphatase 136 High 34-104 Total Bilirubin 0.50 0.2-1.0 Albumin/Globulin Ratio 1.1 1-3 Globulin 2.3 2-4 Albumin 2.6 Low 3.2-5.2 Total Protein 4.9 Low 6.4-8.9 Calcium 8.5 Low 8.6-10.3 BUN/Creatinine Ratio 8.7 8-20 One Over Creatinine 0.25 Creatinine 3.91 High 0.51-0.95 Blood Urea Nitrogen 34 High 6-24 Glucose 159 High 70-100 Anion Gap 6 2-11 Co2 Carbon Dioxide 32 22-32 Chloride 97 Low 101-111 Potassium 3.8 3.5-5.0 Sodium 135 135-145 Phosphorus 02/24/2019 N2N/CCD Import Phosphorus 3.7 2.5-5.0 Iron Iron Bind Cap 02/24/2019 N2N/CCD Import % Iron Saturation 43 15- 55 Transferrin 153 Low 203-362 Total Iron Binding Capacity 214 Low 250-450 Unsaturated Iron Binding < 199 Iron 91 50-212 Iron Panel 02/24/2019 N2N/CCD Import Iron 91 65-170 Iron Saturation 43 20-55 Tibc 214 Low 228-428 Chem I HD 02/24/2019 N2N/CCD Import Albumin 2.6 Low 3.5-5.0 Calcium 8.5 8.4-10.2 Chloride 97 Low 98-107 Co2 32 22-33 Phosphorus 3.7 2.5-4.5 Potassium 3.8 3.5-5.0 CBC With Autodiff 02/24/2019 N2N/CCD Import WBC 4.7 4.5-11.0 RBC 3.45 Low 4.60-6.20 Hematocrit 31 Low 33.0-36.0 Hemoglobin 10.9 Low 14.0-18.0 Glucose 02/24/2019 N2N/CCD Import Glucose 159 High 70-105 Calcium Corrected 02/24/2019 N2N/CCD Import Calcium Corrected 9.6 8.7 - 10.4 C[place]phos Corrected 02/24/2019 N2N/CCD Import [place] Corrected 35.5 21 - 46 PTH Intact 02/11/2019 N2N/CCD Import PTH Intact 80 18 - 80 HGB + HCT 02/11/2019 N2N/CCD Import Hematocrit 30.0 Low 37.0 - 47.0 Hemoglobin 10.5 Low 12.0 - 16.0 HCT Calc (HGBX3) 31.5 Low 37.0 - 47.0 Iron Panel 01/28/2019 N2N/CCD Import Iron 77 50 - 170 Iron Saturation 32 16 - 46 Tibc 241 Low 250 - 450 Uibc 164 80 - 375 Chem I HD 01/28/2019 N2N/CCD Import Alk Phos 137 High 46 - 116 Albumin 2.8 Low 3.2 - 4.8 Calcium 8.1 Low 8.7 - 10.4 Chloride 96 Low 99 - 109 Co2 34 High 20 - 31 LDH, Total 283 High 120 - 246 Phosphorus 3.8 2.4 - 5.1 Potassium 3.5 3.5 - 5.5 Ast/Sgot 51 High 0 - 34 Protein - Total 4.8 Low 5.7 - 8.2 A/G Ratio 1.4 1 - 2.5 Globulin 2.0 0.9 - 5 [place] Product 30.8 21 - 53 [place] Corrected 34.6 21 - 53 CBC With Autodiff 01/28/2019 N2N/CCD Import RBC 3.52 Low 4.20 - 5.40 Hematocrit 32.1 Low 37.0 - 47.0 Hemoglobin 11.0 Low 12.0 - 16.0 MCV 91.1 80.0 - 100.0 MCH 31.2 High 27.0 - 31.0 MCHC 34.2 32.0 - 36.0 Platelet-CT 125 Low 150 - 400 Neuts-Abs 2900.88 2000 - 8800 Lymphs-Abs 1239.30 1100 - 4800 Monos-Abs 247.86 0 - 1100 Basos-Abs 27.54 0 - 400 Eosins-Abs 174.42 0 - 700 HCT Calc (HGBX3) 33.0 Low 37.0 - 47.0 Basophils 0.6 Neutrophils 63.2 Lymphocytes 27.0 Monocytes 5.4 Eosinophils 3.8 RDW 13.0 11.0 - 15.0 WBC 4.6 4.5 - 11.0 BUN 01/28/2019 N2N/CCD Import BUN 39 High 9 - 23 Creatinine 01/28/2019 N2N/CCD Import Creatinine 4.08 High 0.50 - 1.10 Glucose 01/28/2019 N2N/CCD Import Glucose 243 High 70 - 99 Alt/SGPT 01/28/2019 N2N/CCD Import Alt/SGPT 97 High 10 - 49 Calcium Corrected 01/28/2019 N2N/CCD Import Calcium Corrected 9.1 8.7 - 10.4 1 Test Performed by: [facility] [address] [place] [address] Poker Dealer: Farrukh Edge M.D. Ph.D.; CLIA# [id number] 2 Test Performed by: [facility] [address] [place] [address] Poker Dealer: Farrukh Edge M.D. Ph.D.; CLIA# [id number] 3 Desirable: <150 Borderline High: 150-199 High: 200-499 Very High: >500 4 Desirable: <200 Borderline High: 200-239 High: >239 5 Low: <40 Desirable: 40-60 High: >60 6 Desirable: <100 Near Optimal: 100-129 Borderline High: 130-159 High: 160-189 Very High: >189 Procedures Date Code Description Status 06/22/2019 [address] Dialysis Per Full Month 20 Yrs Completed 07/30/2018 [id number] Mammogram Completed 12/08/2017 [id number] Colonoscopy Completed 07/03/2017 [id number] Mammogram Completed 08/19/2016 [id number] Bone Mineral Density Test Completed 07/02/2016 14204664 Mammogram Completed 03/05/2016 994675684 Diabetic Retinal Eye Exam Completed 06/23/2011 [id number] Colonoscopy Completed 06/23/2011 [id number] Mammogram Completed Medical Devices Description No Information Available Encounters Type Date Location Provider Dx Diagnosis Office Visit 07/14/2019 [facility] Internal Odilia Conway J20.9 Acute bronchitis , 11:20a Medicine - [facility] unspecified Office Visit 05/10/2019 Pulmonology And Kasandra Schaffer98.4 Other disorders of 11:30a [facility] lung [facility] Office Visit 05/04/2019 Miguel Munguia and Kush Clay MD E10.22 Type 1 diabetes 9:00a [facility] mellitus w diabetic chronic kidney disease N18.5 Chronic kidney disease, stage 5 Office Visit 04/22/2019 11:40a Miguel Munguia and Kush Clay, E10.22 Type 1 diabetes [facility] mellitus w diabetic chronic kidney disease N18.6 End stage renal disease Office Visit 03/16/2019 10:40a [facility] Internal Terri Almanza, E10.22 Type 1 [facility] chronic kidney disease N18.3 Chronic kidney disease, stage 3 (moderate) J44.9 Chronic obstructive pulmonary disease, unspecified Z98.61 Coronary angioplasty status I25.10 Athscl heart disease of [place] coronary artery w/o ang pctrs N95.1 Menopausal and female climacteric states Office Visit 03/11/2019 1:40p [facility] Kush Clay, E10.22 Type 1 diabetes [facility] mellitus w diabetic chronic kidney disease N18.6 End stage renal disease Assessments Date Code Description Provider 07/22/2019 E10.22 Type 1 diabetes mellitus with diabetic Kush Clay MD chronic kidney disease 07/22/2019 Z79.4 exterminator termite (current) use of insulin Kush Clay MD 07/22/2019 N18.6 End stage renal disease Kush Clay MD 07/14/2019 J20.9 Acute bronchitis, unspecified Odilia Conway, N.P. 06/22/2019 N18.6 End stage renal disease Isaiah Quan MD 06/09/2019 E10.22 Type 1 diabetes mellitus with diabetic Nurse Visit Endocrinology chronic kidney disease 06/09/2019 N18.5 Chronic kidney disease, stage 5 Nurse Visit Endocrinology 05/10/2019 J98.4 Other disorders of lung Azalia Pérez MD 05/04/2019 E10.22 Type 1 diabetes mellitus with diabetic Kush Clay MD chronic kidney diseas 05/04/2019 N18.5 Chronic kidney disease, stage 5 Kush Clay MD 04/22/2019 E10.22 Type 1 diabetes mellitus with diabetic Kush Clay MD chronic kidney diseas 04/22/2019 N18.6 End stage renal disease Kuhs Clay MD 03/16/2019 E10.22 Type 1 diabetes mellitus with diabetic Terri Almanza MD chronic kidney diseas 03/16/2019 N18.3 Chronic kidney disease, stage 3 Terri Almanza MD (moderate) 03/16/2019 J44.9 Chronic obstructive pulmonary disease, Terri Almanza MD unspecified 03/16/2019 Z98.61 Coronary angioplasty status Terri Almanza MD 03/16/2019 I25.10 Atherosclerotic heart disease of [place] Terri Almanza MD coronary artery with 03/16/2019 N95.1 Menopausal and female climacteric states Terri Almanza MD 03/11/2019 E10.22 Type 1 diabetes mellitus with diabetic Kush Clay MD chronic kidney diseas 03/11/2019 N18.6 End stage renal disease Kush Clay MD Plan of Treatment Future Appointment(s):11/04/2019 11:00 am - Kush Clay MD at [facility]09/14/2019 10:40 am - Terri Almanza MD at [facility] Internal Medicine - [facility]07/22/2019 - Kush Clay MDE10.22 Type 1 diabetes mellitus with diabetic chronic kidney diseaseNew Medication:Humulin N Kwikpen 100 Unit/ ML - 10 units in the evening or as directed; MDD 25Follow up:3 monthsInstructions:1. Stop Basaglar. 2. Start Humulin N 10 units at bedtime. 3. Increase Humulin N by 1 unit every 2-3 days until your morning blood glucose is less than 140mg/dL. 4. Return in 4-6 weeks for non-fasting blood tests. 5. Return in 3 months for a follow-up visit.Z79.4 USP (current) use of gacugfkY08.6 End stage renal disease Functional Status Description No Information Available Mental Status Description No Information Available Referrals Description No Information Available
--- OUTSIDE RECORDS SUMMARY | 2019-08-28 22:01 | XMS REPORT | Continuity of Care Document ---
:1955 External Reference #:[id number] Author Name Odilia Conway N.P. (transmitted by agent of provider Jessica Lim) Address [address], [place] [address] Care Team Providers Name Role Phone Dru Conroy MD - Nephrology Care Team Information Box Spinner Pierre Noyola MD - Gastroenterology Care Team Information Box Spinner Terri Almanza MD - Internal Medicine Care Team Information Box Spinner [phone] Problems Active Problems Provider Date Type 1 [...] Onset: 09/02/2016 Coronary atherosclerosis Jennifer Portillo MD, [facility], Onset: 09/30/2016 [facility] Paroxysmal atrial fibrillation Orlando Pugh M.D. Onset: 10/03/2016 Hand joint pain Orlando Pugh M.D. Onset: 02/03/2017 Chronic kidney disease stage 3 Jennifer Portillo MD, [facility], Onset: 03/06/2017 [facility] Type 1 diabetes mellitus Orlando Pugh M.D. Onset: 12/23/2017 Adult health examination Orlando Pugh M.D. Onset: 12/23/2017 Gastroduodenitis Orlando Pugh M.D. Onset: 01/14/2018 Social History Type Date Description Comments Sex Unknown Tobacco Use Start: Unknown End: Former Cigarette Smoker Unknown Tobacco Use Start: Unknown End: Former Cigarette Smoker 1 Unknown Pack Daily Cigarette Use Pack Years - 45 Smoking Status Reviewed: 07/14/19 Former Cigarette Smoker 1 Pack Daily ETOH Use Denies alcohol use Recreational Drug Use Denies Drug Use Tobacco Use Start: Unknown End: Patient is a former smoker Unknown Exercise Type/Frequency Does not exercise Allergies, Adverse Reactions, Alerts Description No Known Drug Allergies Medications Active Medications SIG Qnty Indications Ordering Date Provider Azithromycin two tabs day one, 6tabs J20.9 [...] MD 04/28/2019 5mg day Tablets Novolog Flexpen 6 units with each 15ml E10.22 Kush Clay MD 04/13/2019 meal, 3 times per 100Unit/ML Solution day MDD 30 units Pen-Inject Pen Manning 11/05" use 4 times daily 200units E10.22 Kush Clay MD 2018 31G with Basaglar and X 8 mm Misc Novolog insulin Basaglar Kwikpen inject 12 units 9ml E10.22 Kush Clay MD 12/03/2018 s/c once daily or 100Unit/ML Solution as directed, mdd Pen-Inject 20 Torsemide 3 by mouth twice Kush Clay MD 08/05/2018 20mg daily Tablets Lancet Device use 4 times daily 1units Kush Clay MD 08/05/2018 [facility] with lancet to check blood sugar. Dispense 1 lancing device Metolazone 1 tab by mouth 30 14tabs [place] 05/21/2018 5mg minutes in the Dianne Pugh Tablets morning before torsemide ( Not Taking ) [id number] Standard mmt 864 replace 30units Kush Clay MD 03/31/2018 every other day 4"X5-1/2 Misc dx e10.9 Ezetimibe take 10mg by 30tabs E78.5 Tico Carlos 03/03/2018 10mg mouth daily Dianne Rodriguez Tablets Metoprolol Tartrate 1/2 tab by mouth 90tabs Girogio Jara, 02/17/2018 twice a day DO FACC 25mg Tablets Eliquis take 1 tablet by 180tabs I48.0 Tico Gonzalez 01/08/2018 2.5mg Tablets mouth every 12 Dianne Rodriguez hours Lipitor 1 by mouth every [...] Gonzalez 02/27/2016 0.4mg to 3 doses as Michael MOlesyaDOlesya Tablets Sub needed Estradiol 1/2 tab by mouth 30tabs Terri Almanza MD 2mg Tablets every day Aspirin 1 by mouth every Unknown 81mg Tablets day DR Mosqueda Take One Capsule Unknown 0.25mcg By Mouth [...] use at least 4 1units E10.22 Currie Coch, 04/13/2019 - Day/[place]/Flash times daily 05/04/2019 Monitoring System with sensor Device Freestyle Rashid [address] one 2units E10.22 Currie Coch, 04/13/2019 - Day/Sensor/Flash sensor every 05/04/2019 Monitoring System 14 days Misc Novolin R Relion 6 units with 10ml E10.22 Currie Coch, 04/09/2019 - 100Unit/ML meals, mdd 30 05/04/2019 Solution Novolin N Relion 12 units at 10ml E10.22 Currie [facility], 04/09/2019 - 100Unit/ML bedtime, MDD 05/04/2019 Suspension [...] Code Status Date Vaccine Reaction Lot # [id number] Given 08/12/2018 Pneumococcal Conjugate no immediate reaction [id number] Vaccine 13 Valent For noted Intramuscular Use 73879 Given 04/14/2018 Hepatitis B Vaccine Adult [id number] Dosage 09835 Given 04/14/2018 Influenza Virus Vaccine, [id number] Quadrivalent, Split, Preservative Free 86777 Given 12/23/2017 Measles Mumps And Rubella [id number] MMR 79783 Given 11/11/2017 Hepatitis B Vaccine Adult [id number] Dosage 61695 Given 10/10/2017 Hepatitis B Vaccine Adult [id number] Dosage 18240 Given 04/02/2016 Influ Virus Vaccine, no reaction, pt [id number] Quadrivalent, Split Virus, tolerated well Im Fluzone not PF Vital Signs Date Vital Result Comment 07/14/2019 11:17am Height 62 inches 5'2" Weight 139.00 lb Heart Rate 64 /min BP Systolic 91 mmHg BP Diastolic 51 mmHg Body Temperature 97.6 F O2 % BldC Oximetry 97 % BMI (Body Mass Index) 25.4 kg/m2 05/10/2019 10:27am Height 62 inches 5'2" Weight 137.00 lb Heart Rate 60 /min BP Systolic Sitting 110 mmHg BP Diastolic Sitting 78 mmHg O2 % BldC Oximetry 98 % BMI (Body Mass Index) 25.1 kg/m2 Results Test Acquired Date Facility Test Result H/L Range Note Laboratory test 04/23/2019 [facility] C-Peptide <0.1 ng/mL Abnormal 1.1 - 4.4 1 finding [address] [place] [address] [phone] Fructosamine 268 mcmol/L 200 - 285 2 Lipid Profile 04/23/2019 [facility] Triglycerides 68 mg/dL 3 (Trig/Chol/HDL) [address] [place] [address] [phone] Cholesterol 120 mg/dL 4 HDL Cholesterol 51.6 [...] 99 VLDL-Chol (Calc) 18 0 - 29 Glucose 03/11/2019 N2N/CCD Import Glucose 328 High 70 - 99 HGB + HCT 03/11/2019 N2N/CCD Import Hematocrit 34.5 Low 37.0 - 47.0 Hemoglobin 11.1 Low 12.0 - 16.0 HCT Calc (HGBX3) 33.3 Low 37.0 - 47.0 0416 03/11/2019 N2N/CCD Import BUN 32 High 9 - 23 Creatinine 3.59 High 0.50 - 1.10 NPCR PD 0.71 Creat-PD 1.71 Urea-PD 19 Urea CLR Ur/Bsa 5.1 Low 64 - 99 Cre CLR Ur/Bsa 13 Low 75 - 115 Urea CLR Ur 4.8 Minuts Collctd-Ur 1440 Tot.Vol.-Urine 1180 Tot.Vol.-PDF 77080 Urea Gen Rate 6.5 Urea Nit Urine 188 Creat-Ur 52.59 Bsa (Christiano) 1.64 Body WT (LBS) 140 Height (Inches) [...] KT/V Residual 1.59 KT/V Total PD 3.15 Point Of Care Glucose 03/11/2019 N2N/CCD Import Point Of Care 208 High 70 -100 Glucose Comprehensive Metabolic 03/11/2019 N2N/CCD Import Blood Urea 50 High 6- 24 Panel Nitrogen Egfr 12.2 >60 Egfr Non- 10.1 >60 [...] Potassium 3.5 3.5-5.0 Sodium 131 Low 135-145 CBC Auto Diff 03/11/2019 N2N/CCD Import Nucleated [...] 3.72 3.70-4.87 White Blood Count 4.4 3.5-10.8 Venous Blood Gas 03/11/2019 N2N/CCD Import Venous Bicarbonate Hco3 26.2 24-28 Venous Blood Base Excess 3.8 0.0-4.0 Venous O2 Saturation 35.5 Low 70-80 Venous Po2 < 38.0 35-45 Venous Pco2 56 High 41-51 Venous Blood PH 7.35 7.32-7.43 CBC Auto Diff 02/25/2019 N2N/CCD Import Mean [...] 31-36 Mean Corpuscular Hemoglobin 32 High 27-31 [place] Corrected 02/24/2019 N2N/CCD Import [place] Corrected 35.5 21 - 46 Calcium Corrected 02/24/2019 N2N/CCD Import Calcium Corrected 9.6 8.7 - 10.4 Glucose 02/24/2019 N2N/CCD Import Glucose 159 High 70-105 CBC With Autodiff 02/24/2019 N2N/CCD Import WBC 4.7 4.5-11.0 RBC 3.45 Low 4.60-6.20 Hematocrit 31 Low 33.0-36.0 Hemoglobin 10.9 Low 14.0-18.0 Chem I HD 02/24/2019 N2N/CCD Import Albumin 2.6 Low 3.5-5.0 Calcium 8.5 8.4-10.2 Chloride 97 Low 98-107 Co2 32 22-33 Phosphorus 3.7 2.5-4.5 Potassium 3.8 3.5-5.0 Iron Panel 02/24/2019 N2N/CCD Import Iron 91 65-170 Iron Saturation 43 20-55 Tibc 214 Low 228-428 Iron Iron Bind Cap 02/24/2019 N2N/CCD Import % Iron Saturation 43 15- 55 Transferrin 153 Low 203-362 Total Iron Binding Capacity 214 Low 250-450 Unsaturated Iron Binding < 199 Iron 91 50-212 Phosphorus 02/24/2019 N2N/CCD Import Phosphorus 3.7 2.5-5.0 Comprehensive 02/24/2019 N2N/CCD Import Egfr 14.0 >60 Metabolic Panel Cymro Egfr Non- 11.6 >60 Ast 35 13-39 [...] 101-111 Potassium 3.8 3.5-5.0 Sodium 135 135-145 HGB + HCT 02/11/2019 N2N/CCD Import Hematocrit 30.0 Low 37.0 - 47.0 Hemoglobin 10.5 Low 12.0 - 16.0 HCT Calc (HGBX3) 31.5 Low 37.0 - 47.0 PTH Intact 02/11/2019 N2N/CCD Import PTH Intact 80 18 - 80 Calcium Corrected 01/28/2019 N2N/CCD Import Calcium Corrected 9.1 8.7 - 10.4 Alt/SGPT 01/28/2019 N2N/CCD Import Alt/SGPT 97 High 10 - 49 Glucose 01/28/2019 N2N/CCD Import Glucose 243 High 70 - 99 Creatinine 01/28/2019 N2N/CCD Import Creatinine 4.08 High 0.50 - 1.10 BUN 01/28/2019 N2N/CCD Import BUN 39 High 9 - 23 CBC With Autodiff 01/28/2019 N2N/CCD Import RBC [...] - 15.0 WBC 4.6 4.5 - 11.0 Chem I HD 01/28/2019 N2N/CCD Import Alk [...] 53 [place] Corrected 34.6 21 - 53 Iron Panel 01/28/2019 N2N/CCD Import Iron 77 50 - 170 Iron Saturation 32 16 - 46 Tibc 241 Low 250 - 450 Uibc 164 80 - 375 0416 01/14/2019 N2N/CCD Import BUN 30 High 9 - 23 Creatinine 3.63 High 0.50 - 1.10 NPCR PD 0.63 Creat-PD 1.87 Urea-PD 18 Urea CLR Ur/Bsa 4.0 Low 64 - 99 Cre CLR Ur/Bsa 11 Low 75 - 115 Urea CLR Ur 3.9 Minuts Collctd-Ur 1440 Tot.Vol.-Urine 900 Tot.Vol.-PDF 55487 Urea Gen Rate 5.5 Urea Nit Urine 185 Creat-Ur 59.81 Bsa (Christiano) 1.65 Body WT (LBS) 141 Height (Inches) 62 TBW Tripp 30.54 Pna (PD) 43.1 Npna-PD 0.82 Loren (PD) 3.7 Min Goal:KT/V PD 2.1 PCR PD 33.0 Amputation Factor 0 Cre CLR Ur 10 Low 88 - 128 L/WK/1.73 Resid cc 74.83 L/WK PDF cc 40.65 L/WK/1.73 Total cc 117.48 L/WK Resid cc 71.33 L/WK/1.73 PDF cc 42.65 L/WK Total cc 111.98 KT/V PDF 1.55 KT/V Residual 1.27 KT/V Total PD 2.82 Glucose 01/14/2019 N2N/CCD Import Glucose 192 High 70 - 99 Potassium 01/14/2019 N2N/CCD Import Potassium 3.6 3.5 - 5.5 1 Test Performed by: [facility] [address] [place] [address] Staff Therapist: Farrukh Edge M.D. Ph.D.; CLIA# [id number] 2 Test Performed by: [facility] [address] [place] [address] Staff Therapist: Farrukh Edge M.D. Ph.D.; CLIA# [id number] 3 Desirable: <150 Borderline High: 150-199 High: 200-499 Very High: >500 4 Desirable: <200 Borderline High: 200-239 High: >239 5 Low: <40 Desirable: 40-60 High: >60 6 Desirable: <100 Near Optimal: 100-129 Borderline High: 130-159 High: 160-189 Very High: >189 Procedures Date Code Description Status 06/22/2019 [address]77 [facility] Home Dialysis Per Full Month 20 Yrs Completed 07/30/2018 [id number] Mammogram Completed 12/08/2017 [id number] Colonoscopy Completed 07/03/2017 [id number] Mammogram Completed 08/19/2016 [id number] Bone Mineral Density Test Completed 07/02/2016 [id number] Mammogram Completed 03/05/2016 [id number] Diabetic Retinal Eye Exam Completed 06/23/2011 [id number] Colonoscopy Completed 06/23/2011 [id number] Mammogram Completed Medical Devices Description No Information Available Encounters Type Date Location Provider Dx Diagnosis Office Visit 05/10/2019 [facility] Azalia Pérez, J98.4 Other disorders 11:30a [facility] of lung Office Visit 05/04/2019 Miguel Munguia and Kush Clay MD E10.22 Type 1 diabetes 9:00a [facility] mellitus w diabetic chronic kidney disease N18.5 Chronic kidney disease, stage 5 Office Visit 04/22/2019 11:40a [place] [facility] and Kush Clay, E10.22 Type 1 diabetes [facility] mellitus w diabetic chronic kidney disease N18.6 End stage renal disease Office Visit 03/16/2019 10:40a [facility] Internal Terri Archie, E10.22 Type [facility] disease N18.3 Chronic kidney disease, stage 3 (moderate) J44.9 Chronic obstructive pulmonary disease, unspecified Z98.61 Coronary angioplasty status I25.10 Athscl heart disease of [place] coronary artery w/o ang pctrs N95.1 Menopausal and female climacteric states Office Visit 03/11/2019 1:40p [place] [facility] and Kush Clay, E10.22 Type 1 diabetes [facility] mellitus w diabetic chronic kidney disease N18.6 End stage renal disease Assessments Date Code Description Provider 07/14/2019 J20.9 Acute bronchitis, unspecified Odilia Conway, N.P. 06/22/2019 N18.6 End stage renal disease Isaiah Quan MD 05/10/2019 J98.4 Other disorders of lung Azalia Pérez MD 05/04/2019 E10.22 Type 1 diabetes mellitus with diabetic Kush Clay MD chronic kidney diseas 05/04/2019 N18.5 Chronic kidney disease, stage 5 Kush Clay MD 04/22/2019 E10.22 Type 1 diabetes mellitus with diabetic Kush Clay MD chronic kidney diseas 04/22/2019 N18.6 End stage renal disease Kush Clay MD 03/16/2019 E10.22 Type 1 diabetes mellitus with diabetic Terri Almanza MD chronic kidney diseas 03/16/2019 N18.3 Chronic kidney disease, stage 3 (moderate) Terri Almanza MD 03/16/2019 J44.9 Chronic obstructive pulmonary disease, Terri Almanza MD unspecified 03/16/2019 Z98.61 Coronary angioplasty status Terri Almanza MD 03/16/2019 I25.10 Atherosclerotic heart disease of [place] Terri Almanza MD coronary artery with 03/16/2019 N95.1 Menopausal and female climacteric states Terri Almanza MD 03/11/2019 E10.22 Type 1 diabetes mellitus with diabetic Kush Clay MD chronic kidney diseas 03/11/2019 N18.6 End stage renal disease Kush Clay MD Plan of Treatment Future Appointment(s):09/14/2019 10:40 am - Terri Almanza [facility] at [facility] - Odilia Conway, N.P.J20.9 Acute bronchitis, unspecifiedNew Medication:Azithromycin 250 mg - two tabs day one, one daily till goneFluticasone Propionate 50 mcg/Act - 2 sprays each nostril daily as neededBenzonatate 100 mg - one by mouth three times daily as needed for coughComments:For your bronchitis: I have sent a prescription to the pharmacy for Azithromycin. Take 2 tablets thefirst day then 1 tablet daily until they are gone for a total of 5 days. The medicine stays in your system for an additional 5 days. For your sinus congestion I sent in a prescription for Fluticasone nasal spray. Use 2 inhalation sin each nostril once daily until you are better.I sent in a prescription for Benzonatate 100 mg.. You may take 1 tablet 3 times daily as you need it for your cough. If your symptoms do not improve or if you should start to feel worse call the office. Functional Status Description No Information Available Mental Status Description No Information Available Referrals Description No Information Available
[2019-08-28 22:27] LABS: ABS Eosinophils 0.1 10^3/ul (0-0.6); ABS Lymphocytes 0.5 10^3/ul (1.0-4.8); ABS Monocytes 0.6 10^3/ul (0-0.8); ABS Neutrophils 4.6 10^3/ul (1.5-7.7); Eosinophil % 1.6 %; Hematocrit 31 % (35-47); Lymphocyte % 8.6 %; Mean Corpuscular HGB Conc 35 g/dL (31-36); Mean Corpuscular Hemoglobin 33 pg (27-31); Mean Corpuscular Volume 93 fL (80-97); Mean Platelet Volume 10.6 fL (7.4-10.4); Platelet Count 143 10^3/uL (150-450); Red Blood Count 3.38 10^6 /uL (3.70-4.87); Red Cell Distribution Width 15 % (10-15); White Blood Count 5.8 10^3/uL (3.5-10.8)
[2019-08-28 22:43] LABS: ALT 62 U/L (7-52); AST 33 U/L (13-39); Albumin 2.9 g/dL (3.2-5.2); Albumin/Globulin Ratio 1.1 (1-3); Alkaline Phosphatase 136 U/L (34-104); Anion Gap 5 mmol/L (2-11); BUN/Creatinine Ratio 11.4 (8-20); Blood Urea Nitrogen 60 mg/dL (6-24); C Reactive Protein 7.11 mg/L (<8.01); CO2 Carbon Dioxide 30 mmol/L (22-32); Calcium 8.5 mg/dL (8.6-10.3); Chloride 87 mmol/L (101-111); EGFR African American 9.9 (>60); EGFR Non-African American 8.2 (>60); Globulin 2.6 g/dL (2-4); Potassium 3.8 mmol/L (3.5-5.0); Sodium 122 mmol/L (135-145); Total Protein 5.5 g/dL (6.4-8.9)
--- NOTE | 2019-08-28 22:43 | ED ---
HPI Diabetic - HPI Summary HPI Summary: 64 year old female presents to the ED with a chief complaint of diabetes complications starting this morning. Patient has had high blood glucose (>600) since this morning. Patient does nightly dialysis, and is due for one now. She has been on this dialysis regiment for a year and a half. Patient denies dysuria , polyuria, chest pain, or abdominal pain. History of kidney failure, AFib and a stent. Patient sees Dr. Clay for her DM. Home Medications Medication Instructions Recorded Confirmed Type Aspirin [Aspirin 81 MG TAB] 81 mg PO QAM 09/23/16 11/09/18 History Enalapril Maleate 5 mg PO BID 09/23/16 11/09/18 History Albuterol HFA INHALER* [Ventolin 2 puff INH Q6H PRN 12/02/17 11/09/18 History HFA Inhaler*] Glucagon* [Glucagen*] 1 mg .SEE ORDER ONCE 12/02/17 11/09/18 History Torsemide [Demadex 20 MG] 60 mg PO BID 12/02/17 11/09/18 History Apixaban* [Eliquis*] 2.5 mg PO BID 12/08/17 11/09/18 History Nitroglycerin TAB 0.4 MG* 0.4 mg SL Q5M PRN 12/08/17 11/09/18 History Atorvastatin* [Lipitor 80 MG*] 80 mg PO QAM 03/16/18 11/09/18 History Calcitriol CAP* [Rocaltrol CAP*] 0.25 mcg PO EVERY OTHER DAY 03/16/18 11/09/18 History Ezetimibe TAB* [Zetia TAB*] 10 mg PO QAM 03/16/18 11/09/18 History Metoprolol Tartrate TAB* 12.5 mg PO BID 03/16/18 11/09/18 History [Lopressor TAB*] Auryxia 210 mg PO TID 11/09/18 11/09/18 History Estradiol [Estrace] 0.5 tab PO DAILY 11/09/18 11/09/18 History Insulin Lispro [Admelog 100 0 unit SUBCUT DAILY 11/09/18 11/09/18 History units/ml 10 ml VIAL] - History Of Current Complaint Chief Complaint: EDDiabeticProb Time Seen by Provider: 08/28/19 22:01 Hx Obtained From: Patient Onset/Duration: Gradual Onset, Lasting Hours - since this morning, Still Present Timing: Constant Severity Initially: Mild Severity Currently: Mild Character: Alert Aggravating: Nothing - Allergies/Home Medications Allergies/Adverse Reactions: Allergies Allergy/AdvReac Type Severity Reaction Status Date / Time No Known Allergies Allergy Verified 08/28/19 21:51 Home Medications: Home Medications Aspirin [Aspirin 81 MG TAB] 81 mg PO QAM 09/23/16 [History Confirmed 11/09/18] Enalapril Maleate 5 mg PO BID 09/23/16 [History Confirmed 11/09/18] Albuterol HFA INHALER* [Ventolin HFA Inhaler*] 2 puff INH Q6H PRN 12/02/17 [ History Confirmed 11/09/18] Glucagon* [Glucagen*] 1 mg .SEE ORDER ONCE 12/02/17 [History Confirmed 11/09/18] Torsemide [Demadex 20 MG] 60 mg PO BID 12/02/17 [History Confirmed 11/09/18] Apixaban* [Eliquis*] 2.5 mg PO BID 12/08/17 [History Confirmed 11/09/18] Nitroglycerin TAB 0.4 MG* 0.4 mg SL Q5M PRN 12/08/17 [History Confirmed 11/09/18 ] Atorvastatin* [Lipitor 80 MG*] 80 mg PO QAM 03/16/18 [History Confirmed 11/09/18 ] Calcitriol CAP* [Rocaltrol CAP*] 0.25 mcg PO EVERY OTHER DAY 03/16/18 [History Confirmed 11/09/18] Ezetimibe TAB* [Zetia TAB*] 10 mg PO QAM 03/16/18 [History Confirmed 11/09/18] Metoprolol Tartrate TAB* [Lopressor TAB*] 12.5 mg PO BID 03/16/18 [History Confirmed 11/09/18] Auryxia 210 mg PO TID 11/09/18 [History Confirmed 11/09/18] Estradiol [Estrace] 0.5 tab PO DAILY 11/09/18 [History Confirmed 11/09/18] Insulin Lispro [Admelog 100 units/ml 10 ml VIAL] 0 unit SUBCUT DAILY 11/09/18 [ History Confirmed 11/09/18] PMH/Surg Hx/FS Hx/Imm Hx Endocrine/Hematology History: Reports: Hx Anticoagulant Therapy - Pradaxa, Hx Diabetes Denies: Hx Blood Disorders, Hx Blood Transfusions, Hx Bone Marrow Disease, Hx Systemic Lupus Erythematosus, Hx Sickle Cell Disease, Hx Thyroid Disease, Hx Anemia, Hx Unexplained Bleeding, Other Endocrine/Hematological Disorders Cardiovascular History: Reports: Hx Angioplasty - stent placement, Hx Atrial Fibrillation, Hx Coronary Artery Disease, Hx Hypercholesterolemia, Hx Hypertension Denies: Hx Aneurysm, Hx Angina, Hx Auto Implanted Cardiovert Defib, Hx Cardiac Arrest, Hx Cardiomegaly, Hx Congenital Heart Disease, Hx Congestive Heart Failure, Hx Deep Vein Thrombosis, Hx Embolism, Hx Hypotension, Hx Myocardial Infarction, Hx Pacemaker/ICD, Hx Peripheral Vascular Disease, Hx Rheumatic Fever, Hx Syncope, Hx Valvular Heart Disease, Other Cardiovascular Problems/Disorders Respiratory History: Reports: Hx Chronic Obstructive Pulmonary Disease (COPD) Denies: Hx Asthma, Hx Chronic Bronchitis, Hx Cystic Fibrosis, Hx Lung Cancer , Hx Pleural Effusion, Hx Pneumonia, Hx Pulmonary Edema, Hx Pulmonary Embolism, Hx Seasonal Allergies, Hx Sleep Apnea, Other Respiratory Problems/Disorders GI History: Denies: Hx Cirrhosis, Hx Crohn's Disease, Hx Diverticulosis, Hx Gall Bladder Disease, Hx Gastroesophageal Reflux Disease, Hx Gastrointestinal Bleed, Hx Hiatal Hernia, Hx Irritable Bowel, Hx Jaundice, Hx Obstructive Bowel, Hx Ileostomy, Hx Pyloric Stenosis, Hx Ulcer, Other GI Disorders History: Reports: Hx Chronic Renal Failure Denies: Hx Acute Renal Failure, Hx Benign Prostatic Hyperplasia, Hx Dialysis , Hx Kidney Infection, Hx Kidney Stones, Other Problems/Disorders Musculoskeletal History: Denies: Hx Arthritis, Hx Back Problems, Hx Bursitis, Hx Congenital Bone Abnormalities, Hx Fibromyalgia, Hx Gout, Hx Orthopedic Injury, Hx Osteoporosis, Hx Scoliosis, Hx Tendonitis, Other Musculoskeletal History Sensory History: Reports: Hx Contacts or Glasses Denies: Hx Cataracts, Hx Eye Injury, Hx Eye Prosthesis, Hx Glaucoma, Hx Legally Blind, Hx Macular Degeneration, Hx Vision Problem, Hx Deafness, Hx Hearing Aid, Hx Hearing Problem, Other Sensory Impairments Opthamlomology History: Reports: Hx Contacts or Glasses Denies: Hx Cataracts, Hx Eye Injury, Hx Eye Prosthesis, Hx Glaucoma, Hx Legally Blind, Hx Macular Degeneration, Hx Vision Problem, Other Sensory Impairments Neurological History: Denies: Hx Dementia, Hx Developmental Delay, Hx Headaches, Hx Migraine, Hx Nerve Disease, Hx Seizures, Hx Spinal Cord Injury, Hx Transient Ischemic Attacks (TIA), Other Neuro Impairments/Disorders Psychiatric History: Denies: Hx Anxiety, Hx Attention Deficit Hyperactivity Disorder, Hx Eating Disorder, Hx Depression, Hx Panic Disorder, Hx Post Traumatic Stress Disorder, Hx Inpatient Treatment, Hx Community Mental Health Tx, Hx Schizophrenia, Hx Bipolar Disorder, Hx Suicide Attempt, Hx of Violent Episodes Against Others, Hx Substance Abuse, Other Psychiatric Issues/Disorders - Cancer History Hx Chemotherapy: No Hx Radiation Therapy: No - Surgical History Surgery Procedure, Year, and Place: CARDIAC STENT PLACEMENT; TYMPANOPLASTY; C- SECTIONx3, HYSTERECTOMY. DIALYSIS CATH Hx Anesthesia Reactions: No Infectious Disease History: No Infectious Disease History: Denies: Hx Clostridium Difficile, Hx Hepatitis, Hx Human Immunodeficiency Virus (HIV), Hx of Known/Suspected MRSA, Hx Shingles, Hx Tuberculosis, History Other Infectious Disease, Traveled Outside the [place] in Last 30 Days - Family History Known Family History: Positive: Diabetes Negative: Cardiac Disease, Hypertension - Social History Alcohol Use: None Substance Use Type: Reports: None Smoking Status (MU): Former Smoker Type: Cigarettes Length of Time of Smoking/Using Tobacco: since age 13 Have You Smoked in the Last Year: Yes Review of Systems Positive: Other - high blood sugar. Negative: Chest Pain Negative: Abdominal Pain Negative: dysuria, incontinence, urgency, other - polyuria All Other Systems Reviewed And Are Negative: Yes Physical Exam - Summary Physical Exam Summary: Appearance: Well-appearing, Well-nourished, lying in bed comfortably Skin: Warm, dry, no obvious rash Eyes: sclera anicteric, no conjunctival pallor HENT: mucous membranes moist, pharynx appears normal Neck: Supple, nontender Respiratory: Clear to auscultation, no signs of respiratory distress Cardiovascular: Normal S1, S2. No murmurs. Normal distal pulses in tibial and radial bilaterally. Abdomen: Soft, nontender, normal active bowel sounds present Musculoskeletal: Normal, Strength/ROM Intact Neurological: A&Ox3, awake and alert, mentation is normal, speech is fluent and appropriate Psychiatric: affect is normal, does not appear anxious or depressed Triage Information Reviewed: Yes Vital Signs On Initial Exam: Initial Vitals Temp Pulse Resp BP Pulse Ox 98.8 F 66 15 205/89 99 08/28/19 21:50 08/28/19 21:50 08/28/19 21:50 08/28/19 21:50 08/28/19 21:50 Vital Signs Reviewed: Yes Procedures - Sedation Patient Received Moderate/Deep Sedation with Procedure: No Diagnostics - Vital Signs Vital Signs Temp Pulse Resp BP Pulse Ox 08/28/19 22:04 69 186/86 98 08/28/19 21:50 98.8 F 66 15 205/89 99 - Laboratory Lab Results: Lab Results 08/28/19 08/28/19 08/28/19 Range/Units 21:58 22:19 22:19 WBC 5.8 (3.5-10.8) 10^3/uL RBC 3.38 L (3.70-4.87) 10^6 /uL Hgb 11.0 L (12.0-16.0) g/dL Hct 31 L (35-47) % MCV 93 (80-97) fL MCH 33 H (27-31) pg MCHC 35 (31-36) g/dL RDW 15 (10-15) % Plt Count 143 L (150-450) 10^3/uL MPV 10.6 H (7.4-10.4) fL Neut % (Auto) 79.0 % Lymph % (Auto) 8.6 % [place] % (Auto) 10.0 % Eos % (Auto) 1.6 % Baso % (Auto) 0.8 % Absolute Neuts (auto) 4.6 (1.5-7.7) 10^3/ul Absolute Lymphs (auto) 0.5 L (1.0-4.8) 10^3/ul Absolute Monos (auto) 0.6 (0-0.8) 10^3/ul Absolute Eos (auto) 0.1 (0-0.6) 10^3/ul Absolute Basos (auto) 0.0 (0-0.2) 10^3/ul Absolute Nucleated RBC 0.0 10^3/ul Nucleated RBC % 0.0 VBG pH 7.36 (7.32-7.43) VBG pCO2 54 H (41-51) mmHg VBG pO2 < 38.0 (35-45) mmHg VBG HCO3 26.1 (24-28) mmol/L VBG O2 Saturation 36.3 L (70-80) % VBG Base Excess 3.7 (0.0-4.0) mmol/L POC Glucose (mg/dL) > 444 H* (70-100) mg/dL Result Diagrams: 08/28/19 22:19 08/28/19 22:19 Lab Statement: Any lab studies that have been ordered have been reviewed, and results considered in the medical decision making process. - EKG 2210 Cardiac Rate: NL - 66 EKG Rhythm: Sinus Rhythm ST Segment: Normal Ectopy: None Summary of EKG Findings: NSR at 66 BPM, P waves, QRS complex, and T waves are within normal limits, T waves and intervals are normal, no ischemic changes. This is a normal EKG. An ED physician has reviewed and interpreted this EKG. Diabetic Course/Dx - Course Course Of Treatment: 64 year old female presents to the ED with a chief complaint of diabetes complications starting this morning. Patient has had high blood glucose (>600) since this morning. Patient does nightly dialysis, and is due for one now. She has been on this dialysis regiment for a year and a half. Patient denies dysuria, polyuria, chest pain, or abdominal pain. History of kidney failure, AFib and a stent. Patient sees Dr. Clay for her DM. Physical exam is normal. Lab results show Glucose 506, POC Glucose >444, Troponin I .03 , RBC 3.38, HGB 11, HCT 31, MCH 33, PLT count 143, MPV 10.6, VBG pCO2 54, sodium 122, chloride 87, BUN 60, Creatinine 5.27, calcium 8.5, ALT 62, Alk Phos 136, total protein 5.5, and albumin 2.9. EKG shows NSR at 66 BPM, P waves, QRS complex, and T waves are within normal limits, T waves and intervals are normal , no ischemic changes. This is a normal EKG. Patient is diagnosed with hyperglycemia. During ED course patient was given insulin. Patient will be discharged home, with follow up with provider in 2-3 days. Patient understands and agrees with this plan. - Diagnoses Provider Diagnoses: Hyperglycemia Discharge ED - Sign-Out/Discharge Documenting (check all that apply): Patient Departure - discharge home - Discharge Plan Condition: Stable Disposition: HOME Patient Education Materials: Diabetic Hyperglycemia (ED) Referrals: Terri Almanza MD [Primary Care Provider] - Additional Instructions: For now I would recommend going up to 16 units on the long acting insulin (that' s the dose you got tonight), and on your sliding scale increase the dose of short acting insulin by 2 units for each dose range. Continue to monitor your BS and followup with your flour blender or PCP on Friday. - Billing Disposition and Condition Condition: STABLE Disposition: Home - Attestation Statements Document Initiated by Larisa: Yes Documenting Scribe: Jose Stokes Provider For Whom Larisa is Documenting (Include Credential): Dr. Ghanshyam Martin Scribe Attestation: I, Jose Stokes, scribed for Dr. Ghanshyam Martin on 08/30/19 at 0136. Scribe Documentation Reviewed: Yes Provider Attestation: The documentation as recorded by the Jose cardenas accurately reflects the service I personally performed and the decisions made by me, Dr. Ghnashyam Martin Status of Scribjack Document: Viewed
[2019-08-28] MEDS ORDERED: Insulin GLARGINE(*) 1 UNITS UNIT SUBCUT ONE (22:44)
[2019-08-28] MEDS ORDERED: Dextrose 50% Syringe 50 ML* 25 GM/50 ML SYRINGE IV PUSH PRN (22:45)
[2019-08-28] MEDS ORDERED: Insulin LISPRO* 1 UNITS UNIT SUBCUT ONE (22:45)
[2019-08-28 22:47] LABS: Troponin I 0.03 ng/mL (<0.03)
[2019-08-28 22:48] LABS: Glucose 506 mg/dL (70-100); Glucose Confirmatory 506 mg/dL (70-100)
[2019-08-29] MEDS ORDERED: Ondansetron ODT TAB* 4 MG SL ONE (00:29)
[2019-08-29 00:41] VITALS: BP 162/78
== END 2019-08-29 00:39 | disposition home or self-care (01) ==
LOC: ED 21:41
DX: E11.65 Type 2 diabetes mellitus with hyperglycemia (principal); E11.22 Type 2 diabetes mellitus with diabetic chronic kidney disease; I12.9 Hypertensive chronic kidney disease with stage 1 through stage 4 chronic kidney disease, or unspecified chronic kidney disease; N18.9 Chronic kidney disease, unspecified; Z79.4 Long term (current) use of insulin; E78.00 Pure hypercholesterolemia, unspecified; Z95.5 Presence of coronary angioplasty implant and graft; Z79.82 Long term (current) use of aspirin; Z79.01 Long term (current) use of anticoagulants; Z79.899 Other long term (current) drug therapy; Z87.891 Personal history of nicotine dependence
CPT/HCPCS: 36415; 80053; 82803; 82947; 83605; 84484; 85025; 86140; 93005; 96372; 99283; A9270-GY

== ENCOUNTER 2021-04-01 09:58 | Inpatient (IN) ==
[2021-04-01] MEDS ORDERED: Dexamethasone IV 4 MG/ML VIAL 1 ml VIAL IV SLOW PU ONE (11:59)
[2021-04-01 12:47] LABS: ABS Lymphocytes 0.5 10^3/ul (1.0-4.8); ABS Monocytes 0.4 10^3/ul (0-0.8); ABS Neutrophils 8.3 10^3/ul (1.5-7.7); Hematocrit 31 % (35-47); Hemoglobin 10.4 g/dL (12.0-16.0); Lymphocyte % 5.4 %; Mean Corpuscular HGB Conc 34 g/dL (31-36); Mean Corpuscular Hemoglobin 28 pg (27-31); Mean Corpuscular Volume 82 fL (80-97); Mean Platelet Volume 9.6 fL (7.4-10.4); Platelet Count 235 10^3/uL (150-450); Red Blood Count 3.77 10^6 /uL (3.70-4.87); Red Cell Distribution Width 16 % (10-15); White Blood Count 9.2 10^3/uL (3.5-10.8)
[2021-04-01 12:49] LABS: Venous Bicarbonate HCO3 23.1 mmol/L (24-28)
[2021-04-01 13:04] LABS: ALT 10 U/L (7-52); Albumin 2.5 g/dL (3.2-5.2); Albumin/Globulin Ratio 0.9 (1-3); Alkaline Phosphatase 52 U/L (35-149); Blood Urea Nitrogen 46 mg/dL (6-24); C Reactive Protein 31.47 mg/L (<8.01); CO2 Carbon Dioxide 22 mmol/L (22-32); Calcium 6.6 mg/dL (8.6-10.3); Chloride 96 mmol/L (101-111); Globulin 2.7 g/dL (2-4); Glucose 161 mg/dL (70-100); Sodium 125 mmol/L (135-145); Total Protein 5.2 g/dL (6.4-8.9)
[2021-04-01 13:05] LABS: Troponin I 0.02 ng/mL (<0.03)
[2021-04-01 13:07] LABS: Activated Partial Thrombo Time 33.8 seconds (26.0-38.0); INR 1.41 (0.86-1.15)
[2021-04-01 13:19] LABS: Anion Gap 7 mmol/L (2-11)
[2021-04-01 13:23] LABS: Ferritin 215.9 ng/mL (11-307)
[2021-04-01] MEDS ORDERED: CALCIUM GLUCONATE 1GM/50ML NS 1 GM/50 ML BAG IV ONE (13:54)
[2021-04-01 14:02] LABS: Potassium Redraw 4.9 mmol/L (3.5-5.0)
[2021-04-01] MEDS ORDERED: Albuterol HFA INHALER 8 gm MDI INH PRN (14:44)
[2021-04-01] MEDS ORDERED: Remdesivir 100 mg Vial 200 MG in NS 0.9% 250 ml 210 ML IV ONE (14:45)
[2021-04-01] MEDS: NS 0.9% 1000 ml BAG 1,000 ML IV SCH (21:23)
[2021-04-02 01:31] LABS: Urine Appearance Turbid; Urine Bilirubin Negative (Negative); Urine Blood 1+ (Negative); Urine Color Yellow; Urine Glucose Negative (Negative); Urine Ketones Negative (Negative); Urine Nitrite Negative (Negative); Urine Protein 1+(30 mg/dL) (Negative); Urine Specific Gravity 1.014 (1.002-1.030); Urine Urobilinogen Negative (Negative)
[2021-04-02 01:43] LABS: Urine Bacteria 3+ (Absent); Urine Granular Casts Present (Absent); Urine Red Blood Cell Trace(0-2/hpf) (Absent); Urine White Blood Cell 3+(>20/hpf) (Absent)
[2021-04-02 06:54] LABS: ABS Lymphocytes 0.4 10^3/ul (1.0-4.8); ABS Monocytes 0.2 10^3/ul (0-0.8); ABS Neutrophils 7.2 10^3/ul (1.5-7.7); Hematocrit 33 % (35-47); Hemoglobin 11.2 g/dL (12.0-16.0); Lymphocyte % 5.3 %; Mean Corpuscular HGB Conc 34 g/dL (31-36); Mean Corpuscular Hemoglobin 28 pg (27-31); Mean Corpuscular Volume 82 fL (80-97); Mean Platelet Volume 9.3 fL (7.4-10.4); Platelet Count 265 10^3/uL (150-450); Red Blood Count 3.99 10^6 /uL (3.70-4.87); Red Cell Distribution Width 16 % (10-15); White Blood Count 7.8 10^3/uL (3.5-10.8)
[2021-04-02 07:00] LABS: INR 1.46 (0.86-1.15)
[2021-04-02 07:12] LABS: Albumin 2.4 g/dL (3.2-5.2); Albumin/Globulin Ratio 0.9 (1-3); Calcium 7.2 mg/dL (8.6-10.3); Globulin 2.6 g/dL (2-4); Total Bilirubin 0.4 mg/dL (0.2-1.0)
[2021-04-02 07:21] LABS: Potassium 5.1 mmol/L (3.5-5.0)
[2021-04-02] MEDS ORDERED: Estradiol 0.5 mg TAB (NF) PO SCH (09:00)
[2021-04-02] MEDS ORDERED: Buffered Lidocaine 1% SYRIN 1 ml INTRADERM ONE (12:11)
[2021-04-02] MEDS: NS 0.9% 1000 ml BAG 1,000 ML IV SCH (12:36)
[2021-04-02] MEDS: Remdesivir 100 mg Vial 100 MG in NS 0.9% 250 ml 230 ML IV SCH (21:34)
[2021-04-03 06:38] LABS: INR 1.39 (0.86-1.15)
[2021-04-03 06:42] LABS: Albumin 2.4 g/dL (3.2-5.2); Calcium 7.1 mg/dL (8.6-10.3); Globulin 2.5 g/dL (2-4); Total Bilirubin 0.3 mg/dL (0.2-1.0); Total Protein 4.9 g/dL (6.4-8.9)
[2021-04-03 06:44] LABS: Potassium 5.2 mmol/L (3.5-5.0)
[2021-04-03 09:46] LABS: C Reactive Protein 21.88 mg/L (<8.01)
[2021-04-03] MEDS: Remdesivir 100 mg Vial 100 MG in NS 0.9% 250 ml 230 ML IV SCH (22:42)
[2021-04-04 06:48] LABS: INR 1.24 (0.86-1.15)
[2021-04-04 06:58] LABS: Albumin 2.4 g/dL (3.2-5.2); Albumin/Globulin Ratio 0.9 (1-3); Calcium 7.5 mg/dL (8.6-10.3); Globulin 2.6 g/dL (2-4); Total Bilirubin 0.3 mg/dL (0.2-1.0)
[2021-04-04 07:03] LABS: Potassium 5.1 mmol/L (3.5-5.0)
[2021-04-04 09:51] LABS: ABS Lymphocytes 0.5 10^3/ul (1.0-4.8); ABS Monocytes 0.7 10^3/ul (0-0.8); ABS Neutrophils 11.3 10^3/ul (1.5-7.7); Hematocrit 34 % (35-47); Hemoglobin 11.3 g/dL (12.0-16.0); Lymphocyte % 4.2 %; Mean Corpuscular HGB Conc 34 g/dL (31-36); Mean Corpuscular Hemoglobin 28 pg (27-31); Mean Corpuscular Volume 83 fL (80-97); Mean Platelet Volume 8.8 fL (7.4-10.4); Platelet Count 331 10^3/uL (150-450); Red Blood Count 4.06 10^6 /uL (3.70-4.87); Red Cell Distribution Width 16 % (10-15); White Blood Count 12.6 10^3/uL (3.5-10.8)
[2021-04-04] MEDS ORDERED: Sodium Polystyrene ORAL.SUSP 15 GM/60 ML BTL PO ONE (10:14)
[2021-04-04] MEDS ORDERED: Amoxicillin/Clavul 875/125 TAB (Augmentin 875 tab) PO SCH (11:00)
[2021-04-04 11:38] VITALS: BP 123/59
== END 2021-04-04 16:10 | disposition home or self-care (01) | DRG 177 ==
LOC: ED 09:58 → MED 19:56
PROVIDERS: ADMIT Internal Medicine; ATTEND Internal Medicine

== ENCOUNTER 2023-05-03 18:44 | Inpatient (IN) ==
[2023-05-03 19:55] LABS: Hematocrit 25.6 % (35-45); Hemoglobin 8.4 g/dL (11.5-14.3); Mean Corpuscular Hemoglobin 28.9 pg (27-33); Mean Corpuscular Hgb Conc 32.9 g/dL (31-36); Mean Platelet Volume 10.7 fL (7.5-11.2); Platelet Count 113 10^3/uL (150-450); Red Blood Count 2.91 10^6/uL (3.63-4.92); Red Cell Distribution Width 15.8 % (12-17); White Blood Count 4.6 10^3/uL (3.8-11.8)
[2023-05-03 20:27] LABS: ABS Eosinophils 0.1 10^3/uL (0.0-0.5); ABS Lymphocytes 0.2 10^3/uL (1.0-4.8); ABS Monocytes 0.2 10^3/uL (0.0-0.9); ABS Neutrophils 4.2 10^3/uL (1.5-7.6); ABS Nucleated RBC 0.01 10^3/ul; Albumin 4.1 g/dL (3.2-5.2); Albumin/Globulin Ratio 2.1 (1-3); Calcium 8.3 mg/dL (8.6-10.3); Creatinine, Serum 5.05 mg/dL (0.51-0.95); Eosinophil % 1.2 %; Lymphocyte % 3.7 %; Nucleated Red Blood Cells % 0.2 %/100WBC (0.0-0.8); Potassium 6.4 mmol/L (3.5-5.0); Total Bilirubin 0.8 mg/dL (0.2-1.0); Total Protein 6.1 g/dL (6.4-8.9); eGFR CKD-EPI 8.8 (>60)
[2023-05-03] MEDS ORDERED: Dextrose 50% Syringe 50 ml 25 GM/50 ML SYRINGE IV PUSH PRN (20:30)
[2023-05-03] MEDS ORDERED: Albuterol 2.5mg/3 ml (0.083%) NEB.SOLN INH ONE (20:30)
[2023-05-03] MEDS ORDERED: Sodium Polystyrene ORAL.SUSP 15 GM/60 ML BTL PO ONE ×2 (20:37→22:27)
[2023-05-03] MEDS ORDERED: Bumetanide IV 0.25 MG/ML 4 ml VIAL (1 mg) IV SLOW PU ONE (20:37)
[2023-05-03 21:18] LABS: PCO2 Arterial 33 mmHg (35-45); PO2 Arterial 91 mmHg (80-100)
[2023-05-03] MEDS ORDERED: Ondansetron 4 mg VIAL 2 MG/ML 2 ml VIAL IV ONE (22:27)
[2023-05-03] MEDS ORDERED: Calcium Gluconate 2 GM in NS 0.9% 100 ml BAG 100 ML IVPB ONE (23:21)
[2023-05-03] MEDS ORDERED: cloNIDine 0.2 MG PATCH 0.2 MG/24 HR 7 DAY PATCH TRANSDERM SCH (23:45)
[2023-05-03] MEDS ORDERED: Albuterol HFA INHALER 8 gm MDI INH PRN (23:55)
[2023-05-04 00:01] LABS: Calcium 8.4 mg/dL (8.6-10.3); Creatinine, Serum 5.02 mg/dL (0.51-0.95); Potassium 6.3 mmol/L (3.5-5.0); eGFR CKD-EPI 8.9 (>60)
[2023-05-04] MEDS ORDERED: Dextrose 50% Syringe 50 ml 25 GM/50 ML SYRINGE IV PUSH PRN ×2 (00:09→04:40)
[2023-05-04] MEDS: CALCIUM GLUCONATE 1GM/50ML NS BAG IV SCH ×2 (00:34→01:01)
[2023-05-04] MEDS: Pantoprazole VIAL 40 MG VIAL IV SCH ×2 (00:44→09:25)
[2023-05-04] MEDS: Heparin 5000 UNITS/ML 1 mL VIAL SUBCUT SCH ×3 (00:49→20:47)
[2023-05-04] MEDS ORDERED: Dextrose 50% Syringe 50 ml 25 GM/50 ML SYRINGE IV PUSH ONE (01:17)
[2023-05-04 02:11] LABS: Glucose Confirmatory 452 mg/dL (70-100)
[2023-05-04 02:24] LABS: Urine Appearance Cloudy; Urine Bilirubin Negative (Negative); Urine Blood 1+ (Negative); Urine Color Yellow; Urine Glucose 2+(150 mg/dL) (Negative); Urine Ketones Trace (Negative); Urine Nitrite Negative (Negative); Urine Protein 2+(100 mg/dL) (Negative); Urine Urobilinogen Negative (Negative)
[2023-05-04 02:51] LABS: Ferritin 118.9 ng/mL (11-307)
[2023-05-04 03:20] LABS: Urine Bacteria 1+ (Absent); Urine Red Blood Cell Trace(0-2/hpf) (Absent); Urine White Blood Cell Trace(0-5/hpf) (Absent)
[2023-05-04 03:42] LABS: Urine Creatinine Concentration 63.84 mg/dL (20.00-320.00); Urine TP Creat Ratio 2.34 mg/mg
[2023-05-04 04:23] LABS: Potassium 5.5 mmol/L (3.5-5.0)
[2023-05-04 07:00] LABS: Hematocrit 24.2 % (35-45); Hemoglobin 8.1 g/dL (11.5-14.3); Mean Corpuscular Hemoglobin 28.8 pg (27-33); Mean Corpuscular Hgb Conc 33.4 g/dL (31-36); Mean Corpuscular Volume 86.3 fL (80-97); Mean Platelet Volume 9.9 fL (7.5-11.2); Platelet Count 106 10^3/uL (150-450); Red Blood Count 2.81 10^6/uL (3.63-4.92); Red Cell Distribution Width 15.8 % (12-17); White Blood Count 3.4 10^3/uL (3.8-11.8)
[2023-05-04 07:18] LABS: Calcium 8.5 mg/dL (8.6-10.3); Creatinine, Serum 5.1 mg/dL (0.51-0.95); Potassium 5.2 mmol/L (3.5-5.0); eGFR CKD-EPI 8.7 (>60)
[2023-05-04 08:01] LABS: ABS Lymphocytes 0.2 10^3/uL (1.0-4.8); ABS Monocytes 0.5 10^3/uL (0.0-0.9); ABS Neutrophils 2.7 10^3/uL (1.5-7.6); Eosinophil % 1.1 %; Lymphocyte % 5.2 %
[2023-05-04 08:10] LABS: Magnesium 2.4 mg/dL (1.9-2.7)
[2023-05-04] MEDS: Sodium Bicarb 650 mg (ANTACID) TAB PO SCH ×3 (08:36→16:38)
[2023-05-04] MEDS ORDERED: Carvedilol 12.5 MG TAB (NF) PO SCH (09:00)
[2023-05-04] MEDS: Aspirin EC 81 mg TAB.EC (enteric coated) PO SCH (09:23)
[2023-05-04] MEDS: FAMCICLOVIR 250 MG PO SCH ×3 (09:30→20:55)
[2023-05-04] MEDS ORDERED: NS 0.9% 1000 ml BAG 200 ML IV PRN (13:07)
[2023-05-04] MEDS ORDERED: Albumin Human 25% 25 GM/100 ML BTL IV PRN (13:07)
[2023-05-04] MEDS ORDERED: NS 0.9% 1000 ml BAG 100 ML IV PRN (13:07)
[2023-05-04 15:07] LABS: Hepatitis B Surface Antigen Nonreactive (Nonreactive)
[2023-05-04] MEDS ORDERED: Bumetanide IV 0.25 MG/ML 4 ml VIAL (1 mg) IV SLOW PU ONE (15:37)
[2023-05-04 20:27] LABS: Hepatitis B Surface Ab Indeterminate (Immune)
[2023-05-04] MEDS: Heparin 1,000 UNIT/ML 10 ml (10,000 UNITS) CATHLAB/DIALYSIS DIALYSIS PRN ×2 (22:42→23:36)
[2023-05-05] MEDS: Heparin 1,000 UNIT/ML 10 ml (10,000 UNITS) CATHLAB/DIALYSIS DIALYSIS PRN ×8 (00:35→18:11)
[2023-05-05] MEDS ORDERED: hydrALAZINE 20 mg/ml 1 ML Vial IV IV SLOW PU ONE (03:17)
[2023-05-05 05:49] LABS: Hematocrit 27.2 % (35-45); Mean Corpuscular Hemoglobin 28.7 pg (27-33); Mean Corpuscular Volume 86.9 fL (80-97); Mean Platelet Volume 10.1 fL (7.5-11.2); Platelet Count 125 10^3/uL (150-450); Red Blood Count 3.13 10^6/uL (3.63-4.92); Red Cell Distribution Width 16.3 % (12-17); White Blood Count 2.8 10^3/uL (3.8-11.8)
[2023-05-05 06:40] LABS: Calcium 7.8 mg/dL (8.6-10.3); Creatinine, Serum 2.34 mg/dL (0.51-0.95); Magnesium 1.7 mg/dL (1.9-2.7); Potassium 3.6 mmol/L (3.5-5.0); eGFR CKD-EPI 22.3 (>60)
[2023-05-05 07:36] LABS: ABS Lymphocytes 0.3 10^3/uL (1.0-4.8); ABS Monocytes 0.5 10^3/uL (0.0-0.9); ABS Neutrophils 1.9 10^3/uL (1.5-7.6); ABS Nucleated RBC 0.01 10^3/ul; Acanthocytes 2+; Anisocytosis 1+; Eosinophil % 1.1 %; Lymphocyte % 11.6 %; Nucleated Red Blood Cells % 0.4 %/100WBC (0.0-0.8); Schistocytes 1+; Tear Drop Cells 1+
[2023-05-05] MEDS: Bumetanide IV 0.25 MG/ML 10 ml VIAL (2.5 mg) IV SLOW PU SCH ×2 (09:04→21:46)
[2023-05-05] MEDS: Pantoprazole VIAL 40 MG VIAL IV SCH (09:07)
[2023-05-05] MEDS: Heparin 5000 UNITS/ML 1 mL VIAL SUBCUT SCH (09:07)
[2023-05-05] MEDS: Aspirin EC 81 mg TAB.EC (enteric coated) PO SCH (09:09)
[2023-05-05] MEDS: Sodium Bicarb 650 mg (ANTACID) TAB PO SCH ×4 (09:10→22:56)
[2023-05-05] MEDS: FAMCICLOVIR 250 MG PO SCH ×3 (09:12→21:25)
[2023-05-05] MEDS: Insulin GLARGINE 100 un/ml 10 ml VIAL SUBCUT SCH (21:29)
[2023-05-06 06:06] LABS: Hematocrit 26.4 % (35-45); Hemoglobin 8.9 g/dL (11.5-14.3); Mean Corpuscular Hemoglobin 28.8 pg (27-33); Mean Corpuscular Hgb Conc 33.6 g/dL (31-36); Mean Corpuscular Volume 85.7 fL (80-97); Mean Platelet Volume 9.6 fL (7.5-11.2); Platelet Count 127 10^3/uL (150-450); Red Blood Count 3.08 10^6/uL (3.63-4.92); Red Cell Distribution Width 16.2 % (12-17); White Blood Count 2.5 10^3/uL (3.8-11.8)
[2023-05-06 06:24] LABS: ABS Lymphocytes 0.5 10^3/uL (1.0-4.8); ABS Monocytes 0.6 10^3/uL (0.0-0.9); ABS Neutrophils 1.4 10^3/uL (1.5-7.6); ABS Nucleated RBC 0.01 10^3/ul; Eosinophil % 1.5 %; Lymphocyte % 20.4 %; Nucleated Red Blood Cells % 0.3 %/100WBC (0.0-0.8)
[2023-05-06 06:35] LABS: Calcium 7.9 mg/dL (8.6-10.3); Creatinine, Serum 1.76 mg/dL (0.51-0.95); Potassium 3.5 mmol/L (3.5-5.0); eGFR CKD-EPI 31.3 (>60)
[2023-05-06 08:14] LABS: Magnesium 1.6 mg/dL (1.9-2.7)
[2023-05-06] MEDS: Bumetanide IV 0.25 MG/ML 10 ml VIAL (2.5 mg) IV SLOW PU SCH ×2 (08:20→21:51)
[2023-05-06] MEDS: Pantoprazole VIAL 40 MG VIAL IV SCH (08:23)
[2023-05-06] MEDS: Aspirin EC 81 mg TAB.EC (enteric coated) PO SCH (08:24)
[2023-05-06] MEDS: Sodium Bicarb 650 mg (ANTACID) TAB PO SCH ×5 (08:24→21:54)
[2023-05-06] MEDS: FAMCICLOVIR 250 MG PO SCH ×5 (08:25→21:52)
[2023-05-06] MEDS ORDERED: Magnesium Sulfate 2 gm BAG 2 GM/50 ML BAG IVPB ONE (08:47)
[2023-05-06] MEDS: Heparin 1,000 UNIT/ML 10 ml (10,000 UNITS) CATHLAB/DIALYSIS DIALYSIS PRN ×4 (09:35→13:50)
[2023-05-06] MEDS ORDERED: Magnesium Sulfate IV 1GM/100ML 1 GM/100 ML BAG IV ONE (10:47)
[2023-05-06 17:43] LABS: Tacrolimus 7.5 ng/mL
[2023-05-06 18:03] LABS: Tacrolimus 4.3 ng/mL
[2023-05-06 22:19] LABS: Glucose Confirmatory 450 mg/dL (70-100)
[2023-05-06] MEDS ORDERED: Dextrose 50% Syringe 50 ml 25 GM/50 ML SYRINGE IV PUSH PRN (22:36)
[2023-05-06] MEDS: Insulin GLARGINE 100 un/ml 10 ml VIAL SUBCUT SCH (22:58)
[2023-05-07 01:52] LABS: Glucose Confirmatory 455 mg/dL (70-100)
[2023-05-07] MEDS ORDERED: Dextrose 50% Syringe 50 ml 25 GM/50 ML SYRINGE IV PUSH PRN (02:05)
[2023-05-07 05:56] LABS: Calcium 8.2 mg/dL (8.6-10.3); Creatinine, Serum 1.53 mg/dL (0.51-0.95); Magnesium 2.3 mg/dL (1.9-2.7); Potassium 3.8 mmol/L (3.5-5.0); eGFR CKD-EPI 37.1 (>60)
[2023-05-07 06:03] LABS: Hematocrit 26.2 % (35-45); Hemoglobin 8.7 g/dL (11.5-14.3); Mean Corpuscular Hemoglobin 28.9 pg (27-33); Mean Corpuscular Hgb Conc 33.4 g/dL (31-36); Mean Corpuscular Volume 86.4 fL (80-97); Mean Platelet Volume 9.9 fL (7.5-11.2); Platelet Count 115 10^3/uL (150-450); Red Blood Count 3.03 10^6/uL (3.63-4.92); White Blood Count 3.3 10^3/uL (3.8-11.8)
[2023-05-07 07:05] LABS: ABS Lymphocytes 0.5 10^3/uL (1.0-4.8); ABS Monocytes 0.7 10^3/uL (0.0-0.9); Eosinophil % 1.1 %; Nucleated Red Blood Cells % 0.1 %/100WBC (0.0-0.8)
[2023-05-07] MEDS: Pantoprazole VIAL 40 MG VIAL IV SCH (08:09)
[2023-05-07] MEDS: FAMCICLOVIR 250 MG PO SCH ×2 (08:09→22:18)
[2023-05-07] MEDS: Bumetanide IV 0.25 MG/ML 10 ml VIAL (2.5 mg) IV SLOW PU SCH ×2 (08:10→22:20)
[2023-05-07] MEDS: Aspirin EC 81 mg TAB.EC (enteric coated) PO SCH (08:10)
[2023-05-07] MEDS: Sodium Bicarb 650 mg (ANTACID) TAB PO SCH ×2 (08:10→22:11)
[2023-05-07] MEDS: Heparin 1,000 UNIT/ML 10 ml (10,000 UNITS) CATHLAB/DIALYSIS DIALYSIS PRN ×4 (08:15→12:44)
[2023-05-07] MEDS: Insulin GLARGINE 100 un/ml 10 ml VIAL SUBCUT SCH ×2 (12:57→22:32)
[2023-05-08 06:08] LABS: Calcium 8.1 mg/dL (8.6-10.3); Creatinine, Serum 1.68 mg/dL (0.51-0.95); Potassium 3.8 mmol/L (3.5-5.0); eGFR CKD-EPI 33.1 (>60)
[2023-05-08 07:21] LABS: Hemoglobin 9.3 g/dL (11.5-14.3); Mean Corpuscular Hemoglobin 28.8 pg (27-33); Mean Corpuscular Hgb Conc 33.2 g/dL (31-36); Mean Corpuscular Volume 86.6 fL (80-97); Mean Platelet Volume 10.3 fL (7.5-11.2); Platelet Count 108 10^3/uL (150-450); Red Blood Count 3.23 10^6/uL (3.63-4.92); White Blood Count 3.1 10^3/uL (3.8-11.8)
[2023-05-08 08:12] LABS: ABS Eosinophils 0.1 10^3/uL (0.0-0.5); ABS Lymphocytes 0.6 10^3/uL (1.0-4.8); ABS Monocytes 0.4 10^3/uL (0.0-0.9); Eosinophil % 1.7 %; Lymphocyte % 19.2 %; Nucleated Red Blood Cells % 0.1 %/100WBC (0.0-0.8)
[2023-05-08] MEDS: Insulin GLARGINE 100 un/ml 10 ml VIAL SUBCUT SCH ×2 (09:38→23:22)
[2023-05-08] MEDS: Sodium Bicarb 650 mg (ANTACID) TAB PO SCH ×2 (09:46→23:23)
[2023-05-08] MEDS: Aspirin EC 81 mg TAB.EC (enteric coated) PO SCH (09:47)
[2023-05-08] MEDS: Polyethylene Glycol 3350 17 GM PACKET PO SCH ×2 (09:48→23:23)
[2023-05-08] MEDS: Pantoprazole VIAL 40 MG VIAL IV SCH (10:43)
[2023-05-08] MEDS: FAMCICLOVIR 250 MG PO SCH ×2 (10:46→23:41)
[2023-05-08] MEDS: Bumetanide IV 0.25 MG/ML 10 ml VIAL (2.5 mg) IV SLOW PU SCH ×2 (10:52→23:35)
[2023-05-08] MEDS ORDERED: Senna TAB 8.6 mg TAB PO PRN (15:37)
[2023-05-08] MEDS: CMC: Omeprazole 20 mg CAP (NF) PO SCH (23:40)
[2023-05-09 01:25] LABS: Glucose Confirmatory 409 mg/dL (70-100)
[2023-05-09] MEDS ORDERED: Dextrose 50% Syringe 50 ml 25 GM/50 ML SYRINGE IV PUSH PRN ×2 (01:33→21:41)
[2023-05-09 07:01] LABS: Calcium 8.1 mg/dL (8.6-10.3); Creatinine, Serum 2.29 mg/dL (0.51-0.95); Magnesium 1.6 mg/dL (1.9-2.7); Potassium 3.4 mmol/L (3.5-5.0); eGFR CKD-EPI 22.8 (>60)
[2023-05-09 07:51] LABS: Hematocrit 24.8 % (35-45); Hemoglobin 8.4 g/dL (11.5-14.3); Mean Corpuscular Hemoglobin 29.1 pg (27-33); Mean Corpuscular Hgb Conc 33.9 g/dL (31-36); Mean Corpuscular Volume 85.8 fL (80-97); Red Blood Count 2.89 10^6/uL (3.63-4.92); Red Cell Distribution Width 15.9 % (12-17); White Blood Count 2.7 10^3/uL (3.8-11.8)
[2023-05-09] MEDS ORDERED: Magnesium Sulf 4 GM/100 ML IV 4,000 MG/100 ML BAG IVPB ONE (08:24)
[2023-05-09 08:59] LABS: ABS Lymphocytes 0.6 10^3/uL (1.0-4.8); ABS Monocytes 0.4 10^3/uL (0.0-0.9); ABS Neutrophils 1.6 10^3/uL (1.5-7.6); Eosinophil % 1.2 %; Lymphocyte % 23.3 %; Mean Platelet Volume 10.1 fL (7.5-11.2); Nucleated Red Blood Cells % 0.1 %/100WBC (0.0-0.8); Platelet Count 97 10^3/uL (150-450)
[2023-05-09] MEDS: Insulin GLARGINE 100 un/ml 10 ml VIAL SUBCUT SCH ×2 (09:11→22:02)
[2023-05-09] MEDS: Polyethylene Glycol 3350 17 GM PACKET PO SCH ×2 (09:11→22:18)
[2023-05-09] MEDS: CMC: Omeprazole 20 mg CAP (NF) PO SCH ×2 (09:13→22:10)
[2023-05-09] MEDS: Sodium Bicarb 650 mg (ANTACID) TAB PO SCH ×2 (09:14→22:10)
[2023-05-09] MEDS: Aspirin EC 81 mg TAB.EC (enteric coated) PO SCH (09:14)
[2023-05-09] MEDS: FAMCICLOVIR 250 MG PO SCH ×2 (09:16→22:13)
[2023-05-09] MEDS: Bumetanide IV 0.25 MG/ML 10 ml VIAL (2.5 mg) IV SLOW PU SCH ×2 (11:12→22:07)
[2023-05-09 17:34] LABS: Tacrolimus 8.6 ng/mL
[2023-05-09] MEDS: Senna TAB 8.6 mg TAB PO SCH (22:15)
[2023-05-09] MEDS: Magnesium Hydroxide LIQ 30 ML UDC PO SCH (22:16)
[2023-05-10 05:35] LABS: Hematocrit 28.2 % (35-45); Hemoglobin 9.6 g/dL (11.5-14.3); Mean Corpuscular Volume 85.2 fL (80-97); Mean Platelet Volume 9.8 fL (7.5-11.2); Platelet Count 115 10^3/uL (150-450); Red Blood Count 3.31 10^6/uL (3.63-4.92); White Blood Count 2.3 10^3/uL (3.8-11.8)
[2023-05-10 05:54] LABS: Calcium 8.1 mg/dL (8.6-10.3); Creatinine, Serum 1.89 mg/dL (0.51-0.95); Magnesium 2.5 mg/dL (1.9-2.7); Potassium 3.3 mmol/L (3.5-5.0); eGFR CKD-EPI 28.8 (>60)
[2023-05-10 06:01] LABS: ABS Eosinophils 0.1 10^3/uL (0.0-0.5); ABS Lymphocytes 0.4 10^3/uL (1.0-4.8); ABS Monocytes 0.3 10^3/uL (0.0-0.9); ABS Neutrophils 1.5 10^3/uL (1.5-7.6); Eosinophil % 3.5 %; Lymphocyte % 18.3 %
[2023-05-10] MEDS: Polyethylene Glycol 3350 17 GM PACKET PO SCH ×2 (08:19→20:47)
[2023-05-10] MEDS ORDERED: Potassium Chlor 20 meq TAB.ER PO ONE (09:15)
[2023-05-10] MEDS: Insulin GLARGINE 100 un/ml 10 ml VIAL SUBCUT SCH ×2 (09:27→22:12)
[2023-05-10] MEDS: Aspirin EC 81 mg TAB.EC (enteric coated) PO SCH (09:30)
[2023-05-10] MEDS: FAMCICLOVIR 250 MG PO SCH ×2 (09:32→20:47)
[2023-05-10] MEDS: Sodium Bicarb 650 mg (ANTACID) TAB PO SCH ×2 (09:33→20:41)
[2023-05-10] MEDS: Magnesium Hydroxide LIQ 30 ML UDC PO SCH ×2 (10:20→20:47)
[2023-05-10] MEDS: Bumetanide IV 0.25 MG/ML 10 ml VIAL (2.5 mg) IV SLOW PU SCH ×2 (10:20→20:37)
[2023-05-10] MEDS: CMC: Omeprazole 20 mg CAP (NF) PO SCH ×2 (10:21→20:44)
[2023-05-10] MEDS: Senna TAB 8.6 mg TAB PO SCH (20:42)
[2023-05-11 06:32] LABS: Hematocrit 24.4 % (35-45); Hemoglobin 8.2 g/dL (11.5-14.3); Mean Corpuscular Hemoglobin 28.7 pg (27-33); Mean Corpuscular Hgb Conc 33.8 g/dL (31-36); Mean Corpuscular Volume 85.1 fL (80-97); Mean Platelet Volume 9.5 fL (7.5-11.2); Platelet Count 114 10^3/uL (150-450); Red Blood Count 2.87 10^6/uL (3.63-4.92); Red Cell Distribution Width 16.1 % (12-17); White Blood Count 2.5 10^3/uL (3.8-11.8)
[2023-05-11 06:50] LABS: ABS Lymphocytes 0.6 10^3/uL (1.0-4.8); ABS Monocytes 0.4 10^3/uL (0.0-0.9); ABS Neutrophils 1.4 10^3/uL (1.5-7.6); ABS Nucleated RBC 0.01 10^3/ul; Eosinophil % 1.4 %; Lymphocyte % 25.3 %; Nucleated Red Blood Cells % 0.2 %/100WBC (0.0-0.8)
[2023-05-11 06:52] LABS: Calcium 7.8 mg/dL (8.6-10.3); Creatinine, Serum 1.97 mg/dL (0.51-0.95); Magnesium 2.3 mg/dL (1.9-2.7); Potassium 3.6 mmol/L (3.5-5.0); eGFR CKD-EPI 27.4 (>60)
[2023-05-11] MEDS: FAMCICLOVIR 250 MG PO SCH ×2 (09:41→22:00)
[2023-05-11] MEDS: CMC: Omeprazole 20 mg CAP (NF) PO SCH ×2 (09:43→22:10)
[2023-05-11] MEDS: Aspirin EC 81 mg TAB.EC (enteric coated) PO SCH (09:45)
[2023-05-11] MEDS: Sodium Bicarb 650 mg (ANTACID) TAB PO SCH ×2 (09:45→22:03)
[2023-05-11] MEDS: Bumetanide IV 0.25 MG/ML 10 ml VIAL (2.5 mg) IV SLOW PU SCH (09:47)
[2023-05-11] MEDS: Insulin GLARGINE 100 un/ml 10 ml VIAL SUBCUT SCH ×2 (09:48→22:05)
[2023-05-11] MEDS: Polyethylene Glycol 3350 17 GM PACKET PO SCH ×2 (09:52→22:02)
[2023-05-11] MEDS: Magnesium Hydroxide LIQ 30 ML UDC PO SCH ×2 (09:52→22:01)
[2023-05-11] MEDS: Senna TAB 8.6 mg TAB PO SCH (22:03)
[2023-05-12 05:52] LABS: Hematocrit 22.9 % (35-45); Hemoglobin 7.7 g/dL (11.5-14.3); Mean Corpuscular Hemoglobin 28.9 pg (27-33); Mean Corpuscular Hgb Conc 33.7 g/dL (31-36); Mean Corpuscular Volume 85.7 fL (80-97); Mean Platelet Volume 9.6 fL (7.5-11.2); Platelet Count 110 10^3/uL (150-450); Red Blood Count 2.67 10^6/uL (3.63-4.92)
[2023-05-12 06:13] LABS: Calcium 8.2 mg/dL (8.6-10.3); Creatinine, Serum 2.06 mg/dL (0.51-0.95); Magnesium 2.2 mg/dL (1.9-2.7); Potassium 3.6 mmol/L (3.5-5.0); eGFR CKD-EPI 25.9 (>60)
[2023-05-12] MEDS: Insulin GLARGINE 100 un/ml 10 ml VIAL SUBCUT SCH ×2 (08:38→23:19)
[2023-05-12] MEDS: Aspirin EC 81 mg TAB.EC (enteric coated) PO SCH (08:41)
[2023-05-12] MEDS: CMC: Omeprazole 20 mg CAP (NF) PO SCH ×2 (08:41→20:05)
[2023-05-12] MEDS: Sodium Bicarb 650 mg (ANTACID) TAB PO SCH ×2 (08:42→20:04)
[2023-05-12] MEDS: FAMCICLOVIR 250 MG PO SCH ×2 (08:42→20:25)
[2023-05-12] MEDS: Magnesium Hydroxide LIQ 30 ML UDC PO SCH ×3 (08:43→20:11)
[2023-05-12] MEDS: Polyethylene Glycol 3350 17 GM PACKET PO SCH ×2 (08:43→23:07)
[2023-05-12] MEDS ORDERED: Bumetanide IV 0.25 MG/ML 10 ml VIAL (2.5 mg) IV SLOW PU SCH (09:00)
[2023-05-12 09:05] LABS: ABS Lymphocytes 0.6 10^3/uL (1.0-4.8); ABS Monocytes 0.3 10^3/uL (0.0-0.9); Anisocytosis 1+; Eosinophil % 1.3 %; Lymphocyte % 29.9 %
[2023-05-12] MEDS: Senna TAB 8.6 mg TAB PO SCH (20:02)
[2023-05-13] MEDS: Ondansetron 4 mg VIAL 2 MG/ML 2 ml VIAL IV PRN (03:45)
[2023-05-13 06:09] LABS: Hematocrit 22.4 % (35-45); Hemoglobin 7.7 g/dL (11.5-14.3); Mean Corpuscular Hemoglobin 29.3 pg (27-33); Mean Corpuscular Hgb Conc 34.4 g/dL (31-36); Mean Corpuscular Volume 85.2 fL (80-97); Mean Platelet Volume 9.7 fL (7.5-11.2); Platelet Count 124 10^3/uL (150-450); Red Blood Count 2.63 10^6/uL (3.63-4.92); Red Cell Distribution Width 16.8 % (12-17); White Blood Count 1.9 10^3/uL (3.8-11.8)
[2023-05-13 06:25] LABS: ABS Lymphocytes 0.4 10^3/uL (1.0-4.8); ABS Monocytes 0.4 10^3/uL (0.0-0.9); Eosinophil % 1.7 %; Lymphocyte % 21.5 %; Nucleated Red Blood Cells % 0.3 %/100WBC (0.0-0.8)
[2023-05-13 06:31] LABS: Calcium 8.3 mg/dL (8.6-10.3); Creatinine, Serum 2.4 mg/dL (0.51-0.95); Potassium 4.1 mmol/L (3.5-5.0); eGFR CKD-EPI 21.6 (>60)
[2023-05-13] MEDS: Polyethylene Glycol 3350 17 GM PACKET PO SCH ×2 (08:16→20:59)
[2023-05-13] MEDS: Magnesium Hydroxide LIQ 30 ML UDC PO SCH ×2 (08:32→20:59)
[2023-05-13] MEDS: Aspirin EC 81 mg TAB.EC (enteric coated) PO SCH (09:09)
[2023-05-13] MEDS: Sodium Bicarb 650 mg (ANTACID) TAB PO SCH ×2 (09:10→20:57)
[2023-05-13] MEDS: FAMCICLOVIR 250 MG PO SCH ×2 (09:11→20:56)
[2023-05-13] MEDS: CMC: Omeprazole 20 mg CAP (NF) PO SCH ×2 (09:16→20:56)
[2023-05-13] MEDS: Insulin GLARGINE 100 un/ml 10 ml VIAL SUBCUT SCH ×2 (09:22→23:27)
[2023-05-13 12:03] LABS: Tacrolimus 6.5 ng/mL
[2023-05-13] MEDS: Senna TAB 8.6 mg TAB PO SCH (20:56)
[2023-05-14 06:04] LABS: Hematocrit 22.7 % (35-45); Hemoglobin 7.7 g/dL (11.5-14.3); Mean Corpuscular Hemoglobin 29.2 pg (27-33); Mean Corpuscular Hgb Conc 33.9 g/dL (31-36); Mean Corpuscular Volume 86.1 fL (80-97); Mean Platelet Volume 10.2 fL (7.5-11.2); Platelet Count 149 10^3/uL (150-450); Red Blood Count 2.63 10^6/uL (3.63-4.92); Red Cell Distribution Width 16.3 % (12-17); White Blood Count 2.4 10^3/uL (3.8-11.8)
[2023-05-14 06:24] LABS: Calcium 8.6 mg/dL (8.6-10.3); Creatinine, Serum 2.76 mg/dL (0.51-0.95); Magnesium 2.1 mg/dL (1.9-2.7); Potassium 4.2 mmol/L (3.5-5.0); eGFR CKD-EPI 18.3 (>60)
[2023-05-14] MEDS ORDERED: Bumetanide IV 0.25 MG/ML 4 ml VIAL (1 mg) IV SLOW PU ONE (07:54)
[2023-05-14 08:43] LABS: ABS Lymphocytes 0.5 10^3/uL (1.0-4.8); ABS Monocytes 0.5 10^3/uL (0.0-0.9); ABS Neutrophils 1.2 10^3/uL (1.5-7.6); ABS Nucleated RBC 0.01 10^3/ul; Anisocytosis 1+; Lymphocyte % 22.1 %; Nucleated Red Blood Cells % 0.2 %/100WBC (0.0-0.8)
[2023-05-14 08:43] LABS: Rapid COVID-19 Molecular Undetected (Undetected)
[2023-05-14] MEDS: Magnesium Hydroxide LIQ 30 ML UDC PO SCH ×2 (08:43→20:34)
[2023-05-14] MEDS: FAMCICLOVIR 250 MG PO SCH ×2 (08:43→20:30)
[2023-05-14] MEDS: Sodium Bicarb 650 mg (ANTACID) TAB PO SCH ×2 (08:44→20:30)
[2023-05-14] MEDS: Aspirin EC 81 mg TAB.EC (enteric coated) PO SCH (08:46)
[2023-05-14] MEDS: CMC: Omeprazole 20 mg CAP (NF) PO SCH ×2 (08:47→20:30)
[2023-05-14] MEDS: Polyethylene Glycol 3350 17 GM PACKET PO SCH ×2 (08:50→20:33)
[2023-05-14] MEDS: Bumetanide IV 0.25 MG/ML 4 ml VIAL (1 mg) IV SLOW PU SCH (14:05)
[2023-05-14] MEDS: Insulin GLARGINE 100 un/ml 10 ml VIAL SUBCUT SCH (20:29)
[2023-05-14] MEDS: Senna TAB 8.6 mg TAB PO SCH (20:31)
[2023-05-15] MEDS: Bumetanide IV 0.25 MG/ML 4 ml VIAL (1 mg) IV SLOW PU SCH ×2 (05:39→16:22)
[2023-05-15 06:00] LABS: Hematocrit 22.2 % (35-45); Hemoglobin 7.5 g/dL (11.5-14.3); Mean Corpuscular Hemoglobin 29.1 pg (27-33); Mean Corpuscular Hgb Conc 33.8 g/dL (31-36); Mean Corpuscular Volume 86.2 fL (80-97); Mean Platelet Volume 10.6 fL (7.5-11.2); Platelet Count 156 10^3/uL (150-450); Red Blood Count 2.57 10^6/uL (3.63-4.92); Red Cell Distribution Width 17.2 % (12-17); White Blood Count 1.6 10^3/uL (3.8-11.8)
[2023-05-15 06:23] LABS: Calcium 8.9 mg/dL (8.6-10.3); Creatinine, Serum 3.48 mg/dL (0.51-0.95); Magnesium 2.6 mg/dL (1.9-2.7); Potassium 4.8 mmol/L (3.5-5.0); eGFR CKD-EPI 13.8 (>60)
[2023-05-15 08:03] LABS: ABS Lymphocytes 0.3 10^3/uL (1.0-4.8); ABS Monocytes 0.4 10^3/uL (0.0-0.9); ABS Neutrophils 0.9 10^3/uL (1.5-7.6); Eosinophil % 0.1 %; Lymphocyte % 18.9 %; Nucleated Red Blood Cells % 0.2 %/100WBC (0.0-0.8)
[2023-05-15 08:07] LABS: Burr Cells 1+; Polychromasia 1+
[2023-05-15] MEDS: CMC: Omeprazole 20 mg CAP (NF) PO SCH ×2 (09:28→21:43)
[2023-05-15] MEDS: Sodium Bicarb 650 mg (ANTACID) TAB PO SCH ×2 (09:29→21:43)
[2023-05-15] MEDS: Aspirin EC 81 mg TAB.EC (enteric coated) PO SCH (09:29)
[2023-05-15] MEDS: FAMCICLOVIR 250 MG PO SCH ×2 (09:30→21:43)
[2023-05-15] MEDS: Ondansetron 4 mg VIAL 2 MG/ML 2 ml VIAL IV PRN (09:43)
[2023-05-15] MEDS: Magnesium Hydroxide LIQ 30 ML UDC PO SCH ×2 (10:17→21:25)
[2023-05-15] MEDS: Polyethylene Glycol 3350 17 GM PACKET PO SCH ×2 (10:17→21:44)
[2023-05-15] MEDS: Heparin 1,000 UNIT/ML 10 ml (10,000 UNITS) CATHLAB/DIALYSIS DIALYSIS PRN ×3 (12:45→15:05)
[2023-05-15 19:36] LABS: Urine Appearance Cloudy; Urine Bilirubin Negative (Negative); Urine Blood Negative (Negative); Urine Color Yellow; Urine Glucose Negative (Negative); Urine Ketones Negative (Negative); Urine Nitrite Negative (Negative); Urine Protein 3+(>=500 mg/dL) (Negative); Urine Specific Gravity 1.012 (1.002-1.030); Urine Urobilinogen Negative (Negative)
[2023-05-15 19:44] LABS: Urine Bacteria 1+ (Absent); Urine Red Blood Cell Trace(0-2/hpf) (Absent); Urine Transitional Epithelial Present (Absent); Urine White Blood Cell 1+(6-10/hpf) (Absent)
[2023-05-15] MEDS: Insulin GLARGINE 100 un/ml 10 ml VIAL SUBCUT SCH (21:43)
[2023-05-15] MEDS: Senna TAB 8.6 mg TAB PO SCH (21:43)
[2023-05-16 06:41] LABS: Hematocrit 22.1 % (35-45); Hemoglobin 7.5 g/dL (11.5-14.3); Mean Corpuscular Hemoglobin 29.2 pg (27-33); Mean Corpuscular Hgb Conc 33.9 g/dL (31-36); Mean Corpuscular Volume 86.3 fL (80-97); Mean Platelet Volume 10.5 fL (7.5-11.2); Platelet Count 186 10^3/uL (150-450); Red Blood Count 2.56 10^6/uL (3.63-4.92); Red Cell Distribution Width 16.6 % (12-17); White Blood Count 1.9 10^3/uL (3.8-11.8)
[2023-05-16 06:58] LABS: Calcium 8.6 mg/dL (8.6-10.3); Creatinine, Serum 3.04 mg/dL (0.51-0.95); Magnesium 2.4 mg/dL (1.9-2.7); Potassium 4.4 mmol/L (3.5-5.0); eGFR CKD-EPI 16.3 (>60)
[2023-05-16] MEDS: Heparin 1,000 UNIT/ML 10 ml (10,000 UNITS) CATHLAB/DIALYSIS DIALYSIS PRN ×3 (07:18→09:38)
[2023-05-16 07:30] LABS: ABS Lymphocytes 0.3 10^3/uL (1.0-4.8); ABS Monocytes 0.5 10^3/uL (0.0-0.9); ABS Neutrophils 1.1 10^3/uL (1.5-7.6); Anisocytosis 1+; Lymphocyte % 17.7 %; Nucleated Red Blood Cells % 0.3 %/100WBC (0.0-0.8); Polychromasia 1+
[2023-05-16] MEDS: CMC: Omeprazole 20 mg CAP (NF) PO SCH ×2 (11:11→22:31)
[2023-05-16] MEDS: FAMCICLOVIR 250 MG PO SCH ×2 (11:12→22:42)
[2023-05-16] MEDS: Sodium Bicarb 650 mg (ANTACID) TAB PO SCH ×2 (11:12→22:33)
[2023-05-16] MEDS: Aspirin EC 81 mg TAB.EC (enteric coated) PO SCH (11:13)
[2023-05-16] MEDS: Polyethylene Glycol 3350 17 GM PACKET PO SCH ×2 (11:53→22:32)
[2023-05-16] MEDS: Magnesium Hydroxide LIQ 30 ML UDC PO SCH ×2 (11:53→22:28)
[2023-05-16] MEDS: Senna TAB 8.6 mg TAB PO SCH (22:32)
[2023-05-16] MEDS: Insulin GLARGINE 100 un/ml 10 ml VIAL SUBCUT SCH (22:43)
[2023-05-17 06:11] LABS: Hematocrit 22.3 % (35-45); Hemoglobin 7.4 g/dL (11.5-14.3); Mean Corpuscular Hemoglobin 28.6 pg (27-33); Mean Corpuscular Volume 86.7 fL (80-97); Mean Platelet Volume 9.9 fL (7.5-11.2); Platelet Count 193 10^3/uL (150-450); Red Blood Count 2.57 10^6/uL (3.63-4.92); Red Cell Distribution Width 16.7 % (12-17); White Blood Count 1.7 10^3/uL (3.8-11.8)
[2023-05-17 06:24] LABS: Calcium 8.3 mg/dL (8.6-10.3); Creatinine, Serum 2.72 mg/dL (0.51-0.95); Potassium 4.7 mmol/L (3.5-5.0); eGFR CKD-EPI 18.6 (>60)
[2023-05-17 06:52] LABS: ABS Lymphocytes 0.4 10^3/uL (1.0-4.8); ABS Monocytes 0.4 10^3/uL (0.0-0.9); ABS Neutrophils 0.8 10^3/uL (1.5-7.6); ABS Nucleated RBC 0.01 10^3/ul; Eosinophil % 1.8 %; Lymphocyte % 21.8 %; Nucleated Red Blood Cells % 0.4 %/100WBC (0.0-0.8); RBC Morphology Normal (Normal)
[2023-05-17] MEDS: Magnesium Hydroxide LIQ 30 ML UDC PO SCH ×2 (08:34→21:57)
[2023-05-17] MEDS: Polyethylene Glycol 3350 17 GM PACKET PO SCH ×2 (08:34→21:57)
[2023-05-17] MEDS: Aspirin EC 81 mg TAB.EC (enteric coated) PO SCH (09:41)
[2023-05-17] MEDS: Sodium Bicarb 650 mg (ANTACID) TAB PO SCH ×2 (09:41→21:56)
[2023-05-17] MEDS: CMC: Omeprazole 20 mg CAP (NF) PO SCH ×2 (09:41→22:00)
[2023-05-17] MEDS: FAMCICLOVIR 250 MG PO SCH ×2 (09:42→21:57)
[2023-05-17 13:48] LABS: Tacrolimus 4.5 ng/mL
[2023-05-17] MEDS: cefTRIAXone 1 gm/50 mL D5W 1 GM/50 ML BAG IV SCH (16:55)
[2023-05-17] MEDS: Insulin GLARGINE 100 un/ml 10 ml VIAL SUBCUT SCH (21:55)
[2023-05-17] MEDS: Senna TAB 8.6 mg TAB PO SCH (21:56)
[2023-05-18 07:48] LABS: Hematocrit 22.3 % (35-45); Hemoglobin 7.5 g/dL (11.5-14.3); Mean Corpuscular Hgb Conc 33.7 g/dL (31-36); Mean Corpuscular Volume 86.2 fL (80-97); Mean Platelet Volume 9.8 fL (7.5-11.2); Platelet Count 197 10^3/uL (150-450); Red Blood Count 2.59 10^6/uL (3.63-4.92); White Blood Count 1.8 10^3/uL (3.8-11.8)
[2023-05-18 08:14] LABS: Calcium 8.5 mg/dL (8.6-10.3); Creatinine, Serum 3.24 mg/dL (0.51-0.95); Potassium 4.7 mmol/L (3.5-5.0); eGFR CKD-EPI 15.1 (>60)
[2023-05-18] MEDS: FAMCICLOVIR 250 MG PO SCH ×2 (08:34→21:02)
[2023-05-18] MEDS: Aspirin EC 81 mg TAB.EC (enteric coated) PO SCH (08:34)
[2023-05-18] MEDS: Sodium Bicarb 650 mg (ANTACID) TAB PO SCH (08:34)
[2023-05-18] MEDS: CMC: Omeprazole 20 mg CAP (NF) PO SCH ×2 (08:35→21:02)
[2023-05-18] MEDS: Magnesium Hydroxide LIQ 30 ML UDC PO SCH ×2 (08:37→21:00)
[2023-05-18] MEDS: Polyethylene Glycol 3350 17 GM PACKET PO SCH ×2 (08:37→21:00)
[2023-05-18 10:34] LABS: ABS Lymphocytes 0.4 10^3/uL (1.0-4.8); ABS Monocytes 0.4 10^3/uL (0.0-0.9); Eosinophil % 2.5 %; Lymphocyte % 21.2 %; Nucleated Red Blood Cells % 0.1 %/100WBC (0.0-0.8); RBC Morphology Normal (Normal)
[2023-05-18] MEDS: cefTRIAXone 1 gm/50 mL D5W 1 GM/50 ML BAG IV SCH (16:23)
[2023-05-18] MEDS ORDERED: Albumin Human 25% 25 GM/100 ML BTL IV PRN (17:35)
[2023-05-18] MEDS ORDERED: NS 0.9% 1000 ml BAG 100 ML IV PRN (17:35)
[2023-05-18] MEDS ORDERED: NS 0.9% 1000 ml BAG 200 ML IV PRN (17:35)
[2023-05-18] MEDS: Bumetanide IV 0.25 MG/ML 4 ml VIAL (1 mg) IV SLOW PU SCH (21:01)
[2023-05-18] MEDS: Senna TAB 8.6 mg TAB PO SCH (21:01)
[2023-05-18] MEDS: Insulin GLARGINE 100 un/ml 10 ml VIAL SUBCUT SCH (21:06)
[2023-05-19 06:51] LABS: Hematocrit 23.1 % (35-45); Hemoglobin 7.8 g/dL (11.5-14.3); Mean Corpuscular Hemoglobin 28.9 pg (27-33); Mean Corpuscular Hgb Conc 33.9 g/dL (31-36); Mean Corpuscular Volume 85.2 fL (80-97); Mean Platelet Volume 9.5 fL (7.5-11.2); Platelet Count 220 10^3/uL (150-450); Red Blood Count 2.71 10^6/uL (3.63-4.92); Red Cell Distribution Width 16.1 % (12-17); White Blood Count 2.2 10^3/uL (3.8-11.8)
[2023-05-19 07:17] LABS: Calcium 8.2 mg/dL (8.6-10.3); Creatinine, Serum 2.68 mg/dL (0.51-0.95); Magnesium 1.9 mg/dL (1.9-2.7); Potassium 3.6 mmol/L (3.5-5.0); eGFR CKD-EPI 18.9 (>60)
[2023-05-19 07:21] LABS: ABS Eosinophils 0.1 10^3/uL (0.0-0.5); ABS Lymphocytes 0.5 10^3/uL (1.0-4.8); ABS Monocytes 0.4 10^3/uL (0.0-0.9); ABS Neutrophils 1.2 10^3/uL (1.5-7.6); Eosinophil % 2.7 %; Lymphocyte % 22.7 %; Polychromasia 1+
[2023-05-19] MEDS ORDERED: Heparin 1,000 UNIT/ML 10 ml (10,000 UNITS) CATHLAB/DIALYSIS DIALYSIS PRN (09:00)
[2023-05-19] MEDS: Aspirin EC 81 mg TAB.EC (enteric coated) PO SCH (09:01)
[2023-05-19] MEDS: FAMCICLOVIR 250 MG PO SCH ×2 (09:02→21:22)
[2023-05-19] MEDS: CMC: Omeprazole 20 mg CAP (NF) PO SCH ×2 (09:02→21:22)
[2023-05-19] MEDS: Polyethylene Glycol 3350 17 GM PACKET PO SCH ×2 (09:03→21:23)
[2023-05-19] MEDS: Magnesium Hydroxide LIQ 30 ML UDC PO SCH ×2 (09:03→21:23)
[2023-05-19] MEDS: Bumetanide IV 0.25 MG/ML 4 ml VIAL (1 mg) IV SLOW PU SCH ×3 (09:08→16:04)
[2023-05-19] MEDS: cefTRIAXone 1 gm/50 mL D5W 1 GM/50 ML BAG IV SCH (15:56)
[2023-05-19] MEDS: Insulin GLARGINE 100 un/ml 10 ml VIAL SUBCUT SCH (21:23)
[2023-05-19] MEDS: Senna TAB 8.6 mg TAB PO SCH (21:23)
[2023-05-20] MEDS: Bumetanide IV 0.25 MG/ML 4 ml VIAL (1 mg) IV SLOW PU SCH (06:23)
[2023-05-20] MEDS: Magnesium Hydroxide LIQ 30 ML UDC PO SCH (08:18)
[2023-05-20] MEDS: Aspirin EC 81 mg TAB.EC (enteric coated) PO SCH (08:18)
[2023-05-20] MEDS: Polyethylene Glycol 3350 17 GM PACKET PO SCH (08:18)
[2023-05-20] MEDS: CMC: Omeprazole 20 mg CAP (NF) PO SCH (08:18)
[2023-05-20] MEDS: FAMCICLOVIR 250 MG PO SCH (08:46)
[2023-05-20 08:53] LABS: Hematocrit 27.4 % (35-45); Hemoglobin 9.1 g/dL (11.5-14.3); Mean Corpuscular Hemoglobin 28.4 pg (27-33); Mean Corpuscular Hgb Conc 33.2 g/dL (31-36); Mean Corpuscular Volume 85.5 fL (80-97); Mean Platelet Volume 9.6 fL (7.5-11.2); Platelet Count 280 10^3/uL (150-450); Red Blood Count 3.21 10^6/uL (3.63-4.92); Red Cell Distribution Width 16.2 % (12-17); White Blood Count 2.6 10^3/uL (3.8-11.8)
[2023-05-20 09:09] LABS: Calcium 8.4 mg/dL (8.6-10.3); Creatinine, Serum 2.18 mg/dL (0.51-0.95); Potassium 3.3 mmol/L (3.5-5.0); eGFR CKD-EPI 24.2 (>60)
[2023-05-20 09:55] LABS: ABS Eosinophils 0.1 10^3/uL (0.0-0.5); ABS Lymphocytes 0.5 10^3/uL (1.0-4.8); ABS Monocytes 0.5 10^3/uL (0.0-0.9); ABS Neutrophils 1.4 10^3/uL (1.5-7.6); ABS Nucleated RBC 0.01 10^3/ul; Lymphocyte % 19.9 %; Nucleated Red Blood Cells % 0.3 %/100WBC (0.0-0.8); RBC Morphology Normal (Normal)
[2023-05-20] MEDS ORDERED: Potassium Chloride LIQUID 20 MEQ/15 ML LIQUID PO SCH (12:00)
[2023-05-20 13:51] LABS: Magnesium 1.8 mg/dL (1.9-2.7)
[2023-05-20 16:02] VITALS: BP 139/58
[2023-05-20 17:46] LABS: Body Fluid Source Pleural Fluid; Body Fluid Total Cells Counted 200
[2023-05-20 17:49] LABS: Body Fluid Appearance Cloudy; Body Fluid Color Yellow
[2023-05-20 19:57] LABS: Body Fluid Mono 82 %; Body Fluid Other Cells 33
[2023-05-20 19:58] LABS: Body Fluid Total Nucleated 889 /mcL
[2023-05-22 15:29] LABS: Lactate Dehydrogenase, BF 92 U/L
[2023-05-23 10:33] LABS: Albumin, BF 1.3 g/dL; Fluid Type, Albumin Pleural Fluid
[2023-05-23 11:05] LABS: Fluid Type, Protein, Total Pleural Fluid; Total Protein, BF 1.6 g/dL
[2023-05-23 12:18] LABS: Glucose, BF 185 mg/dL
== END 2023-05-20 18:35 | disposition home or self-care (01) | DRG 682 ==
LOC: ED 18:44 → EDHOLD 22:10 → SUATTDRO 22:10 → MED 05-04 16:39
PROVIDERS: ADMIT Internal Medicine; ATTEND Internal Medicine

== ENCOUNTER 2023-05-22 06:23 | Inpatient (IN) ==
[2023-05-22 08:00] LABS: Hematocrit 29.3 % (35-45); Hemoglobin 9.7 g/dL (11.5-14.3); Mean Corpuscular Hemoglobin 28.5 pg (27-33); Mean Corpuscular Volume 86.3 fL (80-97); Mean Platelet Volume 9.4 fL (7.5-11.2); Platelet Count 291 10^3/uL (150-450); Red Cell Distribution Width 16.9 % (12-17); White Blood Count 5.1 10^3/uL (3.8-11.8)
[2023-05-22 08:13] LABS: Urine Appearance Cloudy; Urine Bilirubin Negative (Negative); Urine Blood Negative (Negative); Urine Color Straw; Urine Glucose 1+(50 mg/dL) (Negative); Urine Ketones Negative (Negative); Urine Nitrite Negative (Negative); Urine Protein 2+(100 mg/dL) (Negative); Urine Specific Gravity 1.008 (1.002-1.030); Urine Urobilinogen Negative (Negative)
[2023-05-22 08:18] LABS: Urine Bacteria 1+ (Absent); Urine Red Blood Cell Trace(0-2/hpf) (Absent); Urine Squamous Epithelial Cell Present (Absent); Urine White Blood Cell Trace(0-5/hpf) (Absent)
[2023-05-22 08:27] LABS: Albumin 4.4 g/dL (3.2-5.2); Albumin/Globulin Ratio 1.9 (1-3); C Reactive Protein 1.93 mg/L (<8.01); Calcium 8.7 mg/dL (8.6-10.3); Creatinine, Serum 2.29 mg/dL (0.51-0.95); Globulin 2.3 g/dL (2-4); Potassium 4.1 mmol/L (3.5-5.0); Total Bilirubin 0.5 mg/dL (0.2-1.0); Total Protein 6.7 g/dL (6.4-8.9); eGFR CKD-EPI 22.8 (>60)
[2023-05-22] MEDS ORDERED: Bumetanide IV 0.25 MG/ML 4 ml VIAL (1 mg) IV SLOW PU ONE ×2 (08:38→13:00)
[2023-05-22 08:41] LABS: Activated Partial Thrombo Time 30.8 seconds (26.0-38.0); INR 1.2 (0.83-1.13)
[2023-05-22 09:05] LABS: ABS Eosinophils 0.1 10^3/uL (0.0-0.5); ABS Lymphocytes 0.5 10^3/uL (1.0-4.8); ABS Monocytes 0.3 10^3/uL (0.0-0.9); ABS Neutrophils 4.2 10^3/uL (1.5-7.6); ABS Nucleated RBC 0.01 10^3/ul; Anisocytosis 2+; Eosinophil % 1.3 %; Lymphocyte % 9.3 %; Nucleated Red Blood Cells % 0.1 %/100WBC (0.0-0.8); Polychromasia 1+
[2023-05-22 09:54] LABS: High Sensitivity Troponin 1 Hr 90 pg/mL (<15)
[2023-05-22] MEDS ORDERED: hydrALAZINE 20 mg/ml 1 ML Vial IV IV SLOW PU ONE ×2 (11:36→12:13)
[2023-05-22] MEDS ORDERED: Albuterol HFA INHALER 8 gm MDI INH PRN (12:15)
[2023-05-22] MEDS ORDERED: Dextrose 50% VIAL 50 ml IV ONE (12:21)
[2023-05-22] MEDS ORDERED: NS 0.9% 1000 ml BAG 200 ML IV PRN (13:59)
[2023-05-22] MEDS ORDERED: NS 0.9% 1000 ml BAG 100 ML IV PRN (13:59)
[2023-05-22] MEDS ORDERED: Albumin Human 25% 25 GM/100 ML BTL IV PRN (13:59)
[2023-05-22] MEDS ORDERED: INSULIN ASPART FOR INSULIN PUMP SUBCUT SCH (14:00)
[2023-05-22 14:05] LABS: Magnesium 1.9 mg/dL (1.9-2.7)
[2023-05-22] MEDS: Heparin 1,000 UNIT/ML 10 ml (10,000 UNITS) CATHLAB/DIALYSIS DIALYSIS PRN ×2 (14:40→18:17)
[2023-05-22 20:13] LABS: Hepatitis B Surface Antigen Nonreactive (Nonreactive)
[2023-05-22] MEDS ORDERED: Bumetanide IV 0.25 MG/ML 4 ml VIAL (1 mg) IV SLOW PU SCH (21:00)
[2023-05-22 21:48] LABS: Hepatitis B Surface Ab Indeterminate (Immune)
[2023-05-22] MEDS: Sodium Bicarb 650 mg (ANTACID) TAB PO SCH (22:36)
[2023-05-23] MEDS: CMCS:Omeprazole 20 mg CAP (NF) PO SCH ×3 (01:08→22:01)
[2023-05-23] MEDS: FAMCICLOVIR 250 MG PO SCH ×3 (01:08→22:00)
[2023-05-23] MEDS: Bumetanide IV 0.25 MG/ML 4 ml VIAL (1 mg) IV SLOW PU SCH ×2 (01:08→19:56)
[2023-05-23] MEDS: Heparin 1,000 UNIT/ML 10 ml (10,000 UNITS) CATHLAB/DIALYSIS DIALYSIS PRN ×3 (08:00→12:00)
[2023-05-23] MEDS: Sodium Bicarb 650 mg (ANTACID) TAB PO SCH ×2 (13:55→22:00)
[2023-05-23] MEDS: Potassium Chloride LIQUID 20 MEQ/15 ML LIQUID PO SCH (14:00)
[2023-05-23] MEDS ORDERED: Bumetanide IV 0.25 MG/ML 4 ml VIAL (1 mg) IV SLOW PU SCH (21:00)
[2023-05-23] MEDS: Bumetanide IV 0.25 MG/ML 10 ml VIAL (2.5 mg) IV SLOW PU SCH (22:05)
[2023-05-24 07:23] LABS: Hematocrit 25.6 % (35-45); Hemoglobin 8.6 g/dL (11.5-14.3); Mean Corpuscular Hemoglobin 28.6 pg (27-33); Mean Corpuscular Hgb Conc 33.4 g/dL (31-36); Mean Corpuscular Volume 85.6 fL (80-97); Mean Platelet Volume 9.5 fL (7.5-11.2); Platelet Count 254 10^3/uL (150-450); Red Blood Count 2.99 10^6/uL (3.63-4.92); Red Cell Distribution Width 16.5 % (12-17); White Blood Count 5.2 10^3/uL (3.8-11.8)
[2023-05-24 07:40] LABS: Calcium 8.2 mg/dL (8.6-10.3); Creatinine, Serum 1.64 mg/dL (0.51-0.95); Magnesium 1.7 mg/dL (1.9-2.7); Potassium 3.9 mmol/L (3.5-5.0); eGFR CKD-EPI 34.1 (>60)
[2023-05-24 07:53] LABS: ABS Basophils 0.1 10^3/uL (0.0-0.1); ABS Lymphocytes 0.7 10^3/uL (1.0-4.8); ABS Monocytes 0.5 10^3/uL (0.0-0.9); ABS Neutrophils 3.9 10^3/uL (1.5-7.6); Eosinophil % 0.3 %; Nucleated Red Blood Cells % 0.1 %/100WBC (0.0-0.8)
[2023-05-24] MEDS ORDERED: Magnesium Sulf 4 GM/100 ML IV 4,000 MG/100 ML BAG IVPB ONE (08:53)
[2023-05-24] MEDS: FAMCICLOVIR 250 MG PO SCH ×2 (09:27→20:29)
[2023-05-24] MEDS: Sodium Bicarb 650 mg (ANTACID) TAB PO SCH ×2 (09:27→20:29)
[2023-05-24] MEDS: CMCS:Omeprazole 20 mg CAP (NF) PO SCH ×2 (09:32→20:30)
[2023-05-24] MEDS: Bumetanide IV 0.25 MG/ML 10 ml VIAL (2.5 mg) IV SLOW PU SCH ×3 (09:35→15:28)
[2023-05-24] MEDS: Potassium Chloride LIQUID 20 MEQ/15 ML LIQUID PO SCH (09:36)
[2023-05-24] MEDS ORDERED: Bumetanide IV 0.25 MG/ML 10 ml VIAL (2.5 mg) IV SLOW PU SCH ×2 (11:00→14:00)
[2023-05-24] MEDS: Senna TAB 8.6 mg TAB PO PRN (23:28)
[2023-05-25 05:50] LABS: Hematocrit 23.8 % (35-45); Mean Corpuscular Hemoglobin 28.7 pg (27-33); Mean Corpuscular Hgb Conc 33.7 g/dL (31-36); Mean Corpuscular Volume 85.1 fL (80-97); Mean Platelet Volume 8.9 fL (7.5-11.2); Platelet Count 240 10^3/uL (150-450); Red Blood Count 2.79 10^6/uL (3.63-4.92); Red Cell Distribution Width 16.7 % (12-17); White Blood Count 6.1 10^3/uL (3.8-11.8)
[2023-05-25 06:05] LABS: Calcium 8.6 mg/dL (8.6-10.3); Creatinine, Serum 2.08 mg/dL (0.51-0.95); Magnesium 2.9 mg/dL (1.9-2.7); eGFR CKD-EPI 25.6 (>60)
[2023-05-25 06:20] LABS: ABS Basophils 0.1 10^3/uL (0.0-0.1); ABS Lymphocytes 0.9 10^3/uL (1.0-4.8); ABS Monocytes 0.7 10^3/uL (0.0-0.9); ABS Neutrophils 4.4 10^3/uL (1.5-7.6); Eosinophil % 0.5 %; Lymphocyte % 14.2 %; Nucleated Red Blood Cells % 0.1 %/100WBC (0.0-0.8)
[2023-05-25] MEDS: FAMCICLOVIR 250 MG PO SCH ×2 (10:17→20:41)
[2023-05-25] MEDS: Sodium Bicarb 650 mg (ANTACID) TAB PO SCH ×2 (10:19→20:42)
[2023-05-25] MEDS: Bumetanide IV 0.25 MG/ML 10 ml VIAL (2.5 mg) IV SLOW PU SCH ×2 (10:22→15:18)
[2023-05-25] MEDS: CMCS:Omeprazole 20 mg CAP (NF) PO SCH ×2 (10:22→20:39)
[2023-05-25] MEDS: Potassium Chlor 20 meq TAB.ER PO SCH (11:51)
[2023-05-25] MEDS: Senna TAB 8.6 mg TAB PO PRN (11:52)
[2023-05-25] MEDS: Potassium Chloride LIQUID 20 MEQ/15 ML LIQUID PO SCH (16:11)
[2023-05-25] MEDS: Senna TAB 8.6 mg TAB PO SCH (20:40)
[2023-05-25] MEDS: Magnesium Hydroxide LIQ 30 ML UDC PO SCH (21:34)
[2023-05-26 06:14] LABS: Hematocrit 23.6 % (35-45); Hemoglobin 7.9 g/dL (11.5-14.3); Mean Corpuscular Hemoglobin 28.6 pg (27-33); Mean Corpuscular Hgb Conc 33.5 g/dL (31-36); Mean Corpuscular Volume 85.2 fL (80-97); Mean Platelet Volume 9.2 fL (7.5-11.2); Platelet Count 228 10^3/uL (150-450); Red Blood Count 2.77 10^6/uL (3.63-4.92); Red Cell Distribution Width 16.6 % (12-17); White Blood Count 5.5 10^3/uL (3.8-11.8)
[2023-05-26 06:23] LABS: Calcium 8.5 mg/dL (8.6-10.3); Creatinine, Serum 2.21 mg/dL (0.51-0.95); Magnesium 2.6 mg/dL (1.9-2.7); Potassium 4.4 mmol/L (3.5-5.0); eGFR CKD-EPI 23.8 (>60)
[2023-05-26] MEDS: Heparin 1,000 UNIT/ML 10 ml (10,000 UNITS) CATHLAB/DIALYSIS DIALYSIS PRN ×4 (06:42→10:40)
[2023-05-26 06:48] LABS: ABS Basophils 0.1 10^3/uL (0.0-0.1); ABS Eosinophils 0.1 10^3/uL (0.0-0.5); ABS Lymphocytes 0.8 10^3/uL (1.0-4.8); ABS Monocytes 0.7 10^3/uL (0.0-0.9); ABS Neutrophils 3.9 10^3/uL (1.5-7.6); Eosinophil % 2.1 %; Nucleated Red Blood Cells % 0.1 %/100WBC (0.0-0.8)
[2023-05-26] MEDS: Potassium Chlor 20 meq TAB.ER PO SCH (12:16)
[2023-05-26] MEDS: Senna TAB 8.6 mg TAB PO SCH ×2 (12:17→21:08)
[2023-05-26] MEDS: Sodium Bicarb 650 mg (ANTACID) TAB PO SCH ×2 (12:17→21:07)
[2023-05-26] MEDS: CMCS:Omeprazole 20 mg CAP (NF) PO SCH ×2 (12:19→21:08)
[2023-05-26] MEDS: FAMCICLOVIR 250 MG PO SCH ×2 (12:19→21:07)
[2023-05-26] MEDS: Magnesium Hydroxide LIQ 30 ML UDC PO SCH ×2 (12:29→21:13)
[2023-05-26] MEDS: Bumetanide IV 0.25 MG/ML 10 ml VIAL (2.5 mg) IV SLOW PU SCH ×3 (12:46→20:20)
[2023-05-27 06:09] LABS: Hematocrit 26.4 % (35-45); Hemoglobin 8.9 g/dL (11.5-14.3); Mean Corpuscular Hemoglobin 28.9 pg (27-33); Mean Corpuscular Hgb Conc 33.8 g/dL (31-36); Mean Corpuscular Volume 85.7 fL (80-97); Mean Platelet Volume 9.2 fL (7.5-11.2); Platelet Count 238 10^3/uL (150-450); Red Blood Count 3.08 10^6/uL (3.63-4.92); Red Cell Distribution Width 16.2 % (12-17)
[2023-05-27 06:32] LABS: Calcium 8.4 mg/dL (8.6-10.3); Creatinine, Serum 1.47 mg/dL (0.51-0.95); Magnesium 1.9 mg/dL (1.9-2.7); Potassium 3.9 mmol/L (3.5-5.0); eGFR CKD-EPI 38.9 (>60)
[2023-05-27 09:33] LABS: ABS Basophils 0.1 10^3/uL (0.0-0.1); ABS Lymphocytes 0.8 10^3/uL (1.0-4.8); ABS Monocytes 0.6 10^3/uL (0.0-0.9); ABS Neutrophils 4.6 10^3/uL (1.5-7.6); ABS Nucleated RBC 0.01 10^3/ul; Eosinophil % 0.3 %; Lymphocyte % 13.1 %; Nucleated Red Blood Cells % 0.1 %/100WBC (0.0-0.8); RBC Morphology Normal (Normal)
[2023-05-27] MEDS: Sodium Bicarb 650 mg (ANTACID) TAB PO SCH (10:04)
[2023-05-27] MEDS: Potassium Chlor 20 meq TAB.ER PO SCH (10:05)
[2023-05-27] MEDS: Senna TAB 8.6 mg TAB PO SCH ×2 (10:05→23:57)
[2023-05-27] MEDS: FAMCICLOVIR 250 MG PO SCH ×2 (10:07→21:38)
[2023-05-27] MEDS: CMCS:Omeprazole 20 mg CAP (NF) PO SCH ×2 (10:07→21:40)
[2023-05-27] MEDS: Magnesium Hydroxide LIQ 30 ML UDC PO SCH ×2 (10:09→23:57)
[2023-05-27] MEDS: Bumetanide IV 0.25 MG/ML 10 ml VIAL (2.5 mg) IV SLOW PU SCH ×2 (10:09→14:51)
[2023-05-28 07:02] LABS: Hemoglobin 9.7 g/dL (11.5-14.3); Mean Corpuscular Hemoglobin 28.6 pg (27-33); Mean Corpuscular Hgb Conc 33.6 g/dL (31-36); Mean Corpuscular Volume 85.3 fL (80-97); Mean Platelet Volume 9.2 fL (7.5-11.2); Platelet Count 223 10^3/uL (150-450); Red Cell Distribution Width 16.4 % (12-17); White Blood Count 6.1 10^3/uL (3.8-11.8)
[2023-05-28 08:00] LABS: Blood Urea Nitrogen 30 mg/dL (6-24); CO2 Carbon Dioxide 29 mmol/L (22-32); Calcium 8.6 mg/dL (8.6-10.3); Chloride 104 mmol/L (101-111); Creatinine, Serum 1.76 mg/dL (0.51-0.95); Glucose 143 mg/dL (70-100); Magnesium 1.9 mg/dL (1.9-2.7); Potassium 3.8 mmol/L (3.5-5.0); Sodium 133 mmol/L (135-145); eGFR CKD-EPI 31.3 (>60)
[2023-05-28] MEDS: Senna TAB 8.6 mg TAB PO SCH ×2 (08:56→21:12)
[2023-05-28] MEDS: FAMCICLOVIR 250 MG PO SCH ×2 (08:58→21:13)
[2023-05-28] MEDS: CMCS:Omeprazole 20 mg CAP (NF) PO SCH ×2 (09:00→21:12)
[2023-05-28] MEDS: Potassium Chlor 20 meq TAB.ER PO SCH (09:00)
[2023-05-28] MEDS: Bumetanide IV 0.25 MG/ML 10 ml VIAL (2.5 mg) IV SLOW PU SCH ×2 (09:02→16:09)
[2023-05-28 10:16] LABS: ABS Basophils 0.1 10^3/uL (0.0-0.1); ABS Lymphocytes 0.8 10^3/uL (1.0-4.8); ABS Monocytes 0.6 10^3/uL (0.0-0.9); ABS Neutrophils 4.5 10^3/uL (1.5-7.6); ABS Nucleated RBC 0.01 10^3/ul; Eosinophil % 0.5 %; Lymphocyte % 13.6 %; Nucleated Red Blood Cells % 0.1 %/100WBC (0.0-0.8)
[2023-05-28] MEDS: Magnesium Hydroxide LIQ 30 ML UDC PO SCH ×3 (10:50→21:22)
[2023-05-28] MEDS: INSULIN ASPART FOR INSULIN PUMP SUBCUT SCH ×2 (13:48→13:55)
[2023-05-28 15:33] LABS: Tacrolimus 8.2 ng/mL
[2023-05-29 05:39] LABS: Hematocrit 26.6 % (35-45); Mean Corpuscular Hemoglobin 28.9 pg (27-33); Mean Corpuscular Hgb Conc 33.7 g/dL (31-36); Mean Corpuscular Volume 85.8 fL (80-97); Platelet Count 189 10^3/uL (150-450); Red Cell Distribution Width 16.5 % (12-17); White Blood Count 5.3 10^3/uL (3.8-11.8)
[2023-05-29 05:56] LABS: Calcium 8.5 mg/dL (8.6-10.3); Creatinine, Serum 1.75 mg/dL (0.51-0.95); Magnesium 1.7 mg/dL (1.9-2.7); Potassium 3.5 mmol/L (3.5-5.0); eGFR CKD-EPI 31.5 (>60)
[2023-05-29] MEDS ORDERED: Magnesium Sulfate 2 gm BAG 2 GM/50 ML BAG IVPB ONE (07:14)
[2023-05-29 07:56] LABS: ABS Basophils 0.1 10^3/uL (0.0-0.1); ABS Lymphocytes 0.7 10^3/uL (1.0-4.8); ABS Monocytes 0.6 10^3/uL (0.0-0.9); ABS Neutrophils 3.9 10^3/uL (1.5-7.6); ABS Nucleated RBC 0.01 10^3/ul; Eosinophil % 0.4 %; Lymphocyte % 13.7 %; Nucleated Red Blood Cells % 0.1 %/100WBC (0.0-0.8)
[2023-05-29 07:57] LABS: Anisocytosis 1+
[2023-05-29] MEDS: CMCS:Omeprazole 20 mg CAP (NF) PO SCH ×2 (09:43→21:43)
[2023-05-29] MEDS: FAMCICLOVIR 250 MG PO SCH ×2 (09:43→21:43)
[2023-05-29] MEDS: Potassium Chlor 20 meq TAB.ER PO SCH (09:45)
[2023-05-29] MEDS: Bumetanide IV 0.25 MG/ML 10 ml VIAL (2.5 mg) IV SLOW PU SCH ×2 (09:45→16:40)
[2023-05-29] MEDS: Senna TAB 8.6 mg TAB PO SCH ×2 (09:45→21:44)
[2023-05-29] MEDS: Magnesium Hydroxide LIQ 30 ML UDC PO SCH ×2 (13:34→22:36)
[2023-05-30 06:07] LABS: Calcium 8.7 mg/dL (8.6-10.3); Creatinine, Serum 1.89 mg/dL (0.51-0.95); Potassium 3.5 mmol/L (3.5-5.0); eGFR CKD-EPI 28.6 (>60)
[2023-05-30 07:02] LABS: Hematocrit 26.8 % (35-45); Hemoglobin 8.9 g/dL (11.5-14.3); Mean Corpuscular Hemoglobin 28.7 pg (27-33); Mean Corpuscular Hgb Conc 33.2 g/dL (31-36); Mean Corpuscular Volume 86.6 fL (80-97); Mean Platelet Volume 9.5 fL (7.5-11.2); Platelet Count 205 10^3/uL (150-450); Red Blood Count 3.09 10^6/uL (3.63-4.92); Red Cell Distribution Width 16.8 % (12-17); White Blood Count 5.9 10^3/uL (3.8-11.8)
[2023-05-30 07:59] LABS: ABS Basophils 0.1 10^3/uL (0.0-0.1); ABS Lymphocytes 0.8 10^3/uL (1.0-4.8); ABS Monocytes 0.6 10^3/uL (0.0-0.9); ABS Neutrophils 4.3 10^3/uL (1.5-7.6); ABS Nucleated RBC 0.01 10^3/ul; Eosinophil % 0.6 %; Lymphocyte % 14.1 %; Nucleated Red Blood Cells % 0.2 %/100WBC (0.0-0.8)
[2023-05-30] MEDS: Potassium Chlor 20 meq TAB.ER PO SCH (10:09)
[2023-05-30] MEDS: CMCS:Omeprazole 20 mg CAP (NF) PO SCH ×2 (10:09→21:18)
[2023-05-30] MEDS: FAMCICLOVIR 250 MG PO SCH ×2 (10:10→21:17)
[2023-05-30] MEDS: Senna TAB 8.6 mg TAB PO SCH ×2 (10:16→21:25)
[2023-05-30] MEDS: Bumetanide IV 0.25 MG/ML 10 ml VIAL (2.5 mg) IV SLOW PU SCH ×2 (10:32→15:39)
[2023-05-30] MEDS: Magnesium Hydroxide LIQ 30 ML UDC PO SCH ×2 (11:02→22:55)
[2023-05-31 05:47] LABS: Hematocrit 26.9 % (35-45); Hemoglobin 8.9 g/dL (11.5-14.3); Mean Corpuscular Hemoglobin 28.8 pg (27-33); Mean Corpuscular Hgb Conc 33.2 g/dL (31-36); Mean Corpuscular Volume 86.8 fL (80-97); Mean Platelet Volume 8.7 fL (7.5-11.2); Platelet Count 190 10^3/uL (150-450); Red Cell Distribution Width 16.5 % (12-17)
[2023-05-31 06:04] LABS: Calcium 8.5 mg/dL (8.6-10.3); Creatinine, Serum 1.71 mg/dL (0.51-0.95); Potassium 3.6 mmol/L (3.5-5.0); eGFR CKD-EPI 32.2 (>60)
[2023-05-31 07:40] LABS: ABS Lymphocytes 0.8 10^3/uL (1.0-4.8); ABS Monocytes 0.6 10^3/uL (0.0-0.9); ABS Neutrophils 3.6 10^3/uL (1.5-7.6); ABS Nucleated RBC 0.01 10^3/ul; Eosinophil % 0.7 %; Lymphocyte % 15.4 %; Nucleated Red Blood Cells % 0.1 %/100WBC (0.0-0.8)
[2023-05-31] MEDS: CMCS:Omeprazole 20 mg CAP (NF) PO SCH (10:08)
[2023-05-31] MEDS: Potassium Chlor 20 meq TAB.ER PO SCH (10:10)
[2023-05-31] MEDS: FAMCICLOVIR 250 MG PO SCH (10:11)
[2023-05-31] MEDS: Senna TAB 8.6 mg TAB PO SCH (10:13)
[2023-05-31] MEDS: Magnesium Hydroxide LIQ 30 ML UDC PO SCH (10:17)
[2023-05-31] MEDS: Bumetanide IV 0.25 MG/ML 10 ml VIAL (2.5 mg) IV SLOW PU SCH (10:30)
[2023-05-31 11:26] VITALS: BP 136/56
[2023-05-31 16:55] LABS: Tacrolimus 2.7 ng/mL
== END 2023-05-31 15:27 | disposition home or self-care (01) | DRG 698 ==
LOC: ED 06:23 → EDHOLD 06:23 → MEDTELE 13:56 → SUATTDRO 14:11 → MEDTELE 14:13
PROVIDERS: ADMIT Internal Medicine; ATTEND Hospitalist

== ENCOUNTER 2023-06-08 15:51 | Inpatient (IN) ==
[2023-06-08] MEDS ORDERED: Rocuronium 50 mg VIAL 10 mg/ml 5 ml VIAL (50 mg) ONE (15:55)
[2023-06-08] MEDS ORDERED: Succinylcholine 200 mg VIAL 20 mg/ml 10 ml VIAL (200 mg) ONE ×2 (15:55→17:27)
[2023-06-08] MEDS ORDERED: Naloxone 0.4 mg VIAL 0.4 mg/ml 1 ml VIAL ONE (15:56)
[2023-06-08] MEDS ORDERED: Naloxone Nasal Spray 4 MG/0.1 ML NASAL.SPR INTRANASAL ONE (15:56)
[2023-06-08] MEDS ORDERED: Norepinephrine 4 MG/250mL D5W 4,000 MCG/250 ML BAG IV ONE (16:02)
[2023-06-08] MEDS ORDERED: Etomidate 20 mg/10 ml 2 MG/ML 10 ml VIAL IV ONE (16:10)
[2023-06-08] MEDS ORDERED: Naloxone 0.4 mg VIAL 0.4 mg/ml 1 ml VIAL IV PUSH ONE (16:10)
[2023-06-08] MEDS ORDERED: Succinylcholine 200 mg VIAL 20 mg/ml 10 ml VIAL (200 mg) IV ONE (16:10)
[2023-06-08] MEDS: Sodium Bicarbonate 8.4% SYR 50 ml SYRINGE IV ONE ×3 (16:15→16:27)
[2023-06-08] MEDS: Norepinephrine 4 MG/250mL D5W 4,000 MCG/250 ML BAG IV SCH ×4 (16:15→22:25)
[2023-06-08] MEDS: Calcium CHLORIDE 10% SYRINGE 1 GM/10 ML IV ONE ×3 (16:17→17:08)
[2023-06-08] MEDS ORDERED: Sodium Bicarbonate 8.4% SYR 50 ml SYRINGE ONE (16:20)
[2023-06-08] MEDS ORDERED: Calcium CHLORIDE 10% SYRINGE 1 GM/10 ML ONE ×2 (16:21→17:07)
[2023-06-08] MEDS: Midazolam 2 mg/2 ml VIAL 1 mg/ml 2 ml VIAL (2 mg) IV SLOW PU ONE ×2 (16:41→17:10)
[2023-06-08 16:53] LABS: Hematocrit 17.7 % (35-45); Hemoglobin 5.7 g/dL (11.5-14.3); Mean Corpuscular Hgb Conc 32.4 g/dL (31-36); Mean Corpuscular Volume 89.7 fL (80-97); Red Blood Count 1.98 10^6/uL (3.63-4.92); Red Cell Distribution Width 17.8 % (12-17); White Blood Count 3.7 10^3/uL (3.8-11.8)
[2023-06-08 16:54] LABS: High Sens Troponin Baseline 235 pg/mL (<15)
[2023-06-08 16:55] LABS: ALT 17 U/L (7-52); AST 23 U/L (13-39); Albumin 2.3 g/dL (3.2-5.2); Albumin/Globulin Ratio 2.1 (1-3); Alkaline Phosphatase 48 U/L (35-149); Anion Gap 12 mmol/L (2-16); Blood Urea Nitrogen 77 mg/dL (6-24); C Reactive Protein 57.12 mg/L (<8.01); CO2 Carbon Dioxide 16 mmol/L (22-32); Calcium 6.3 mg/dL (8.6-10.3); Chloride 101 mmol/L (101-111); Globulin 1.1 g/dL (2-4); Glucose 217 mg/dL (70-100); Lipase < 10 U/L (11.0-82.0); Magnesium 1.8 mg/dL (1.9-2.7); Potassium 6.3 mmol/L (3.5-5.0); Sodium 129 mmol/L (135-145); Total Bilirubin 0.4 mg/dL (0.2-1.0); Total Protein 3.4 g/dL (6.4-8.9); eGFR CKD-EPI 20.4 (>60)
[2023-06-08] MEDS ORDERED: Dextrose 50% Syringe 50 ml 25 GM/50 ML SYRINGE IV PUSH ONE (17:12)
[2023-06-08 17:24] LABS: INR 2.37 (0.83-1.13)
[2023-06-08] MEDS ORDERED: Sodium Polystyrene ORAL.SUSP 15 GM/60 ML BTL PO ONE (17:27)
[2023-06-08] MEDS ORDERED: Midazolam 10 mg/10 ml VIAL 1 mg/ml 10 ml VIAL (10 mg) ONE (17:27)
[2023-06-08] MEDS ORDERED: Etomidate 40 mg/20 ml (2 MG/ML) 20 ml VIAL (40 mg) ONE (17:27)
[2023-06-08] MEDS ORDERED: Iodixanol (CONTRAST) 320 MG/ML 100 ML SDV IV ONE (17:35)
[2023-06-08] MEDS ORDERED: Ondansetron 4 mg VIAL 2 MG/ML 2 ml VIAL IV PRN (17:37)
[2023-06-08] MEDS ORDERED: Dextrose 50% Syringe 50 ml 25 GM/50 ML SYRINGE IV PUSH PRN ×2 (17:43→19:57)
[2023-06-08] MEDS ORDERED: Propofol 10 mg/ml 100 ML BTL 1,000 MG/100 ML BTL ONE (17:47)
[2023-06-08 17:49] LABS: Phosphorus 3.9 mg/dL (2.5-5.0)
[2023-06-08] MEDS ORDERED: Enoxaparin 40 MG/0.4 ML SYR SUBCUT SCH (18:00)
[2023-06-08] MEDS ORDERED: Pantoprazole VIAL 40 MG VIAL IV SCH (18:00)
[2023-06-08 18:29] LABS: ABS Lymphocytes 0.6 10^3/uL (1.0-4.8); ABS Monocytes 0.2 10^3/uL (0.0-0.9); ABS Neutrophils 2.9 10^3/uL (1.5-7.6); ABS Nucleated RBC 0.01 10^3/ul; Eosinophil % 0.1 %; Lymphocyte % 15.5 %; Mean Platelet Volume 10.1 fL (7.5-11.2); Nucleated Red Blood Cells % 0.2 %/100WBC (0.0-0.8); Platelet Count 94 10^3/uL (150-450)
[2023-06-08 18:29] LABS: PCO2 Arterial 34 mmHg (35-45); PO2 Arterial 93 mmHg (80-100)
[2023-06-08] MEDS: Propofol 10 mg/ml 100 ML BTL 1,000 MG/100 ML BTL IV SCH ×2 (18:32→23:41)
[2023-06-08] MEDS: Chlorhexidine MOUTHWASH 0.12% 15 ML UDC TOPICAL SCH ×2 (19:00→21:50)
[2023-06-08 19:59] LABS: Hematocrit 39.4 % (35-45); Hemoglobin 13.4 g/dL (11.5-14.3); Mean Corpuscular Hemoglobin 29.7 pg (27-33); Mean Corpuscular Volume 87.5 fL (80-97); Mean Platelet Volume 10.1 fL (7.5-11.2); Platelet Count 127 10^3/uL (150-450); Red Cell Distribution Width 16.7 % (12-17); White Blood Count 8.1 10^3/uL (3.8-11.8)
[2023-06-08 20:04] LABS: Urine Appearance Cloudy; Urine Bilirubin Negative (Negative); Urine Blood Negative (Negative); Urine Color Yellow; Urine Glucose 1+(50 mg/dL) (Negative); Urine Ketones Negative (Negative); Urine Nitrite Negative (Negative); Urine Protein 3+(>=500 mg/dL) (Negative); Urine Specific Gravity 1.016 (1.002-1.030); Urine Urobilinogen Negative (Negative)
[2023-06-08] MEDS: Hydrocortisone INJ 100 MG/2ML 2 ML VIAL IV SCH (20:16)
[2023-06-08] MEDS: Pantoprazole VIAL 40 MG VIAL IV SCH (20:16)
[2023-06-08 20:17] LABS: Calcium 9.2 mg/dL (8.6-10.3); Creatinine, Serum 2.65 mg/dL (0.51-0.95); Potassium 4.6 mmol/L (3.5-5.0); eGFR CKD-EPI 19.1 (>60)
[2023-06-08 20:29] LABS: Urine Bacteria 1+ (Absent); Urine Red Blood Cell 2+(6-10/hpf) (Absent); Urine Renal Epithelial Cells Present (Absent); Urine Squamous Epithelial Cell Present (Absent); Urine White Blood Cell 1+(6-10/hpf) (Absent)
[2023-06-08 20:43] LABS: ABS Lymphocytes 0.4 10^3/uL (1.0-4.8); ABS Monocytes 0.9 10^3/uL (0.0-0.9); ABS Neutrophils 6.8 10^3/uL (1.5-7.6); ABS Nucleated RBC 0.01 10^3/ul; Eosinophil % 0.2 %; Lymphocyte % 4.7 %; Nucleated Red Blood Cells % 0.1 %/100WBC (0.0-0.8)
[2023-06-08] MEDS ORDERED: Insulin GLARGINE 100 un/ml 10 ml VIAL SUBCUT ONE (22:47)
[2023-06-08 23:14] LABS: Urine Benzodiazepine Screen Presumptive Positive (None Detect); Urine Cannabinoids Screen None Detected (None Detect); Urine Opiates Screen None Detected (None Detect)
[2023-06-09] MEDS: Norepinephrine 4 MG/250mL D5W 4,000 MCG/250 ML BAG IV SCH (00:25)
[2023-06-09] MEDS: Chlorhexidine MOUTHWASH 0.12% 15 ML UDC TOPICAL SCH ×3 (02:16→08:04)
[2023-06-09] MEDS: Hydrocortisone INJ 100 MG/2ML 2 ML VIAL IV SCH ×2 (02:16→08:04)
[2023-06-09] MEDS ORDERED: Sodium Polystyrene ORAL.SUSP 15 GM/60 ML BTL PO ONE (04:16)
[2023-06-09 05:04] LABS: ABS Lymphocytes 0.3 10^3/uL (1.0-4.8); ABS Monocytes 0.3 10^3/uL (0.0-0.9); ABS Neutrophils 5.3 10^3/uL (1.5-7.6); ABS Nucleated RBC 0.01 10^3/ul; Hematocrit 39.7 % (35-45); Hemoglobin 13.5 g/dL (11.5-14.3); Lymphocyte % 5.1 %; Mean Corpuscular Hemoglobin 29.2 pg (27-33); Mean Corpuscular Hgb Conc 34.1 g/dL (31-36); Mean Corpuscular Volume 85.7 fL (80-97); Mean Platelet Volume 10.1 fL (7.5-11.2); Nucleated Red Blood Cells % 0.2 %/100WBC (0.0-0.8); Platelet Count 126 10^3/uL (150-450); Red Blood Count 4.63 10^6/uL (3.63-4.92); Red Cell Distribution Width 16.6 % (12-17); White Blood Count 5.9 10^3/uL (3.8-11.8)
[2023-06-09 05:19] LABS: Calcium 8.9 mg/dL (8.6-10.3); Creatinine, Serum 2.95 mg/dL (0.51-0.95); Magnesium 2.2 mg/dL (1.9-2.7); Phosphorus 4.8 mg/dL (2.5-5.0); Potassium 5.3 mmol/L (3.5-5.0); eGFR CKD-EPI 16.8 (>60)
[2023-06-09] MEDS: Pantoprazole VIAL 40 MG VIAL IV SCH (05:33)
[2023-06-09] MEDS ORDERED: fentaNYL 100 mcg/2 ml 50 MCG/ML VIAL IV SLOW PU PRN (07:38)
[2023-06-09] MEDS ORDERED: Albumin Human 25% 25 GM/100 ML BTL IV PRN (08:59)
[2023-06-09] MEDS ORDERED: NS 0.9% 1000 ml BAG 100 ML IV PRN (08:59)
[2023-06-09] MEDS ORDERED: NS 0.9% 1000 ml BAG 200 ML IV PRN (08:59)
[2023-06-09] MEDS ORDERED: Heparin 5000 UNITS/ML 1 mL VIAL SUBCUT SCH (09:00)
[2023-06-09 11:58] LABS: High Sensitivity Troponin 1 Hr 424 pg/mL (<15)
[2023-06-09 12:58] LABS: Hepatitis B Surface Antigen Nonreactive (Nonreactive)
[2023-06-09] MEDS: Heparin 1,000 UNIT/ML 10 ml (10,000 UNITS) CATHLAB/DIALYSIS DIALYSIS PRN ×5 (14:05→18:17)
[2023-06-09 14:24] LABS: Hepatitis B Surface Ab Indeterminate (Immune)
[2023-06-09] MEDS ORDERED: Albuterol HFA INHALER 8 gm MDI INH PRN (14:48)
[2023-06-09 16:12] LABS: High Sensitivity Troponin 3 Hr 365 pg/mL (<15)
[2023-06-09 18:31] LABS: Corrected Retic Count 1.4 % (0.5-1.5); Hematocrit for Retic CNT 39.7 % (35-45); RBC Retic Count 4.63 10^6/ul (3.63-4.92)
[2023-06-09] MEDS: Polyethylene Glycol 3350 17 GM PACKET PO SCH (19:35)
[2023-06-09] MEDS ORDERED: hydrALAZINE 20 mg/ml 1 ML Vial IV IV SLOW PU PRN (22:05)
[2023-06-09] MEDS ORDERED: Labetalol IV 5 MG/ML 20 ml VIAL IV PUSH ONE (23:30)
[2023-06-10] MEDS ORDERED: hydrALAZINE 20 mg/ml 1 ML Vial IV IV SLOW PU PRN ×2 (00:06→03:13)
[2023-06-10 05:34] LABS: Hematocrit 35.1 % (35-45); Mean Corpuscular Hemoglobin 29.5 pg (27-33); Mean Corpuscular Hgb Conc 34.1 g/dL (31-36); Mean Corpuscular Volume 86.5 fL (80-97); Mean Platelet Volume 10.1 fL (7.5-11.2); Platelet Count 124 10^3/uL (150-450); Red Blood Count 4.06 10^6/uL (3.63-4.92); White Blood Count 5.5 10^3/uL (3.8-11.8)
[2023-06-10 05:36] LABS: INR 1.23 (0.83-1.13)
[2023-06-10] MEDS ORDERED: Labetalol IV 5 MG/ML 20 ml VIAL IV PUSH ONE ×2 (05:37→06:19)
[2023-06-10 05:50] LABS: Albumin 3.1 g/dL (3.2-5.2); Albumin/Globulin Ratio 1.6 (1-3); Calcium 7.7 mg/dL (8.6-10.3); Creatinine, Serum 2.01 mg/dL (0.51-0.95); Globulin 1.9 g/dL (2-4); Magnesium 1.8 mg/dL (1.9-2.7); Potassium 2.9 mmol/L (3.5-5.0); Total Bilirubin 0.6 mg/dL (0.2-1.0); eGFR CKD-EPI 26.6 (>60)
[2023-06-10 06:13] LABS: ABS Lymphocytes 0.5 10^3/uL (1.0-4.8); ABS Monocytes 0.5 10^3/uL (0.0-0.9); ABS Neutrophils 4.5 10^3/uL (1.5-7.6); Eosinophil % 0.5 %; Lymphocyte % 8.4 %; Nucleated Red Blood Cells % 0.1 %/100WBC (0.0-0.8)
[2023-06-10] MEDS: Heparin 1,000 UNIT/ML 10 ml (10,000 UNITS) CATHLAB/DIALYSIS DIALYSIS PRN ×4 (07:20→10:30)
[2023-06-10] MEDS ORDERED: Potassium Chlor 20 meq TAB.ER PO ONE (07:33)
[2023-06-10] MEDS ORDERED: Ondansetron 4 mg VIAL 2 MG/ML 2 ml VIAL IV PRN (07:57)
[2023-06-10] MEDS: Polyethylene Glycol 3350 17 GM PACKET PO SCH ×2 (09:00→20:16)
[2023-06-10] MEDS ORDERED: Clindamycin 600 MG/D5W BAG 600 MG/50 ML BAG IV ONE (11:00)
[2023-06-10 11:40] LABS: Hepatitis B Core IgM Nonreactive (Nonreactive)
[2023-06-10] MEDS ORDERED: Lidocaine 1% MPF 5 ML VIAL ONE (11:49)
[2023-06-10] MEDS ORDERED: Heparin 2 UNITS/ML IVPREMIX 1,000 UNIT/500 ML BAG IV ONE (11:49)
[2023-06-10] MEDS ORDERED: Ondansetron 4 mg VIAL 2 MG/ML 2 ml VIAL ONE (11:50)
[2023-06-10] MEDS ORDERED: fentaNYL 100 mcg/2 ml 50 MCG/ML VIAL ONE (11:51)
[2023-06-10] MEDS ORDERED: Midazolam 5 mg/5 ml VIAL 1 mg/ml 5 ml VIAL (5 mg) ONE (11:51)
[2023-06-10] MEDS ORDERED: Heparin 1,000 UNIT/ML 10 ml (10,000 UNITS) CATHLAB/DIALYSIS ONE (12:13)
[2023-06-10 16:04] LABS: Platelet Count 124 10^3/ul (150-450)
[2023-06-10 16:39] LABS: Tacrolimus 7.7 ng/mL
[2023-06-10 17:21] LABS: Schistocytes ABSENT
[2023-06-10 19:43] LABS: Mycophenolic Acid 1.4 mcg/mL (1.0 - 3.5)
[2023-06-11 05:26] LABS: Hematocrit 35.4 % (35-45); Mean Corpuscular Hemoglobin 29.7 pg (27-33); Mean Corpuscular Volume 87.4 fL (80-97); Mean Platelet Volume 9.3 fL (7.5-11.2); Platelet Count 118 10^3/uL (150-450); Red Blood Count 4.04 10^6/uL (3.63-4.92); Red Cell Distribution Width 16.4 % (12-17); White Blood Count 4.9 10^3/uL (3.8-11.8)
[2023-06-11 05:44] LABS: Albumin 3.2 g/dL (3.2-5.2); Albumin/Globulin Ratio 1.7 (1-3); Calcium 7.6 mg/dL (8.6-10.3); Creatinine, Serum 1.52 mg/dL (0.51-0.95); Globulin 1.9 g/dL (2-4); Magnesium 1.7 mg/dL (1.9-2.7); Total Bilirubin 0.9 mg/dL (0.2-1.0); Total Protein 5.1 g/dL (6.4-8.9); eGFR CKD-EPI 37.1 (>60)
[2023-06-11 05:55] LABS: INR 1.21 (0.83-1.13)
[2023-06-11] MEDS: Polyethylene Glycol 3350 17 GM PACKET PO SCH ×2 (07:29→20:43)
[2023-06-11 08:27] LABS: ABS Lymphocytes 0.4 10^3/uL (1.0-4.8); ABS Monocytes 0.4 10^3/uL (0.0-0.9); ABS Neutrophils 4.1 10^3/uL (1.5-7.6); Eosinophil % 0.6 %; Lymphocyte % 8.2 %
[2023-06-11] MEDS ORDERED: Bumetanide IV 0.25 MG/ML 4 ml VIAL (1 mg) IV SLOW PU SCH ×2 (14:00→21:00)
[2023-06-11 14:43] LABS: Hepatitis Be Antibody Negative (Negative)
[2023-06-11 17:41] LABS: Glucose Confirmatory 454 mg/dL (70-100)
[2023-06-11] MEDS: Calcium Carb (TUMS) 500 mg CHEW TAB PO SCH (20:21)
[2023-06-11] MEDS ORDERED: Insulin GLARGINE 100 un/ml 10 ml VIAL SUBCUT SCH (21:00)
[2023-06-11] MEDS ORDERED: Calcium Carb (TUMS) 500 mg CHEW TAB PO SCH (21:00)
[2023-06-11] MEDS: BUMETANIDE IV SCH (21:02)
[2023-06-11 23:10] LABS: Glucose Confirmatory 460 mg/dL (70-100)
[2023-06-12 05:28] LABS: Hematocrit 31.9 % (35-45); Hemoglobin 10.8 g/dL (11.5-14.3); Mean Corpuscular Hemoglobin 29.6 pg (27-33); Mean Corpuscular Volume 86.9 fL (80-97); Mean Platelet Volume 9.7 fL (7.5-11.2); Platelet Count 108 10^3/uL (150-450); Red Blood Count 3.67 10^6/uL (3.63-4.92); White Blood Count 4.2 10^3/uL (3.8-11.8)
[2023-06-12 05:45] LABS: INR 1.16 (0.83-1.13)
[2023-06-12 05:47] LABS: Albumin 3.4 g/dL (3.2-5.2); Albumin/Globulin Ratio 1.9 (1-3); Calcium 7.8 mg/dL (8.6-10.3); Creatinine, Serum 1.8 mg/dL (0.51-0.95); Globulin 1.8 g/dL (2-4); Magnesium 1.6 mg/dL (1.9-2.7); Potassium 3.2 mmol/L (3.5-5.0); Total Bilirubin 0.7 mg/dL (0.2-1.0); Total Protein 5.2 g/dL (6.4-8.9); eGFR CKD-EPI 30.3 (>60)
[2023-06-12 05:57] LABS: ABS Eosinophils 0.1 10^3/uL (0.0-0.5); ABS Lymphocytes 0.4 10^3/uL (1.0-4.8); ABS Monocytes 0.5 10^3/uL (0.0-0.9); ABS Neutrophils 3.3 10^3/uL (1.5-7.6); Eosinophil % 2.8 %; Lymphocyte % 9.2 %
[2023-06-12] MEDS: Calcium Carb (TUMS) 500 mg CHEW TAB PO SCH ×2 (09:41→21:31)
[2023-06-12] MEDS: Polyethylene Glycol 3350 17 GM PACKET PO SCH ×2 (09:42→21:31)
[2023-06-12] MEDS: BUMETANIDE IV SCH ×2 (10:06→21:35)
[2023-06-12] MEDS: Heparin 1,000 UNIT/ML 10 ml (10,000 UNITS) CATHLAB/DIALYSIS DIALYSIS PRN ×3 (12:35→16:28)
[2023-06-12] MEDS ORDERED: Insulin GLARGINE 100 un/ml 10 ml VIAL SUBCUT SCH (21:00)
[2023-06-12] MEDS: Insulin GLARGINE 100 un/ml 10 ml VIAL SUBCUT SCH (21:33)
[2023-06-13 03:37] LABS: Calcium 7.6 mg/dL (8.6-10.3); Creatinine, Serum 1.57 mg/dL (0.51-0.95); Magnesium 1.4 mg/dL (1.9-2.7); Potassium 3.9 mmol/L (3.5-5.0); eGFR CKD-EPI 35.7 (>60)
[2023-06-13 04:19] LABS: Hematocrit 37.1 % (35-45); Hemoglobin 12.5 g/dL (11.5-14.3); Mean Corpuscular Hemoglobin 29.2 pg (27-33); Mean Corpuscular Hgb Conc 33.7 g/dL (31-36); Mean Corpuscular Volume 86.7 fL (80-97); Mean Platelet Volume 9.9 fL (7.5-11.2); Platelet Count 133 10^3/uL (150-450); Red Blood Count 4.27 10^6/uL (3.63-4.92); Red Cell Distribution Width 15.9 % (12-17); White Blood Count 4.8 10^3/uL (3.8-11.8)
[2023-06-13] MEDS: Polyethylene Glycol 3350 17 GM PACKET PO SCH ×2 (08:21→20:25)
[2023-06-13] MEDS: Bumetanide IV 0.25 MG/ML 4 ml VIAL (1 mg) IV SLOW PU SCH (08:33)
[2023-06-13] MEDS ORDERED: Magnesium Sulfate 2 gm BAG 2 GM/50 ML BAG IVPB SCH ×2 (10:00→11:54)
[2023-06-13] MEDS: BUMETANIDE IV SCH ×3 (10:26→20:13)
[2023-06-13] MEDS: Insulin GLARGINE 100 un/ml 10 ml VIAL SUBCUT SCH (20:51)
[2023-06-14] MEDS: BUMETANIDE IV SCH ×3 (08:52→23:31)
[2023-06-14] MEDS: Polyethylene Glycol 3350 17 GM PACKET PO SCH ×2 (08:57→21:34)
[2023-06-14 12:54] LABS: Calcium 7.6 mg/dL (8.6-10.3); Creatinine, Serum 1.49 mg/dL (0.51-0.95); Potassium 3.3 mmol/L (3.5-5.0)
[2023-06-14] MEDS: Heparin 1,000 UNIT/ML 10 ml (10,000 UNITS) CATHLAB/DIALYSIS DIALYSIS PRN ×5 (13:13→18:10)
[2023-06-14] MEDS: Insulin GLARGINE 100 un/ml 10 ml VIAL SUBCUT SCH (21:25)
[2023-06-15 06:25] LABS: ABS Basophils 0.1 10^3/uL (0.0-0.1); ABS Lymphocytes 0.6 10^3/uL (1.0-4.8); ABS Monocytes 0.5 10^3/uL (0.0-0.9); ABS Neutrophils 3.9 10^3/uL (1.5-7.6); ABS Nucleated RBC 0.01 10^3/ul; Eosinophil % 0.9 %; Hematocrit 39.2 % (35-45); Hemoglobin 13.4 g/dL (11.5-14.3); Mean Corpuscular Hemoglobin 29.4 pg (27-33); Mean Corpuscular Hgb Conc 34.1 g/dL (31-36); Mean Corpuscular Volume 86.4 fL (80-97); Mean Platelet Volume 9.5 fL (7.5-11.2); Nucleated Red Blood Cells % 0.2 %/100WBC (0.0-0.8); Platelet Count 145 10^3/uL (150-450); Red Blood Count 4.53 10^6/uL (3.63-4.92); Red Cell Distribution Width 15.8 % (12-17); White Blood Count 5.1 10^3/uL (3.8-11.8)
[2023-06-15 07:02] LABS: Calcium 7.7 mg/dL (8.6-10.3); Creatinine, Serum 1.47 mg/dL (0.51-0.95); Potassium 3.6 mmol/L (3.5-5.0); eGFR CKD-EPI 38.6 (>60)
[2023-06-15 07:33] LABS: Magnesium 1.7 mg/dL (1.9-2.7)
[2023-06-15] MEDS: BUMETANIDE IV SCH (09:08)
[2023-06-15] MEDS: Polyethylene Glycol 3350 17 GM PACKET PO SCH (09:08)
[2023-06-15 14:09] VITALS: BP 149/72
== END 2023-06-15 15:43 | disposition home or self-care (01) | DRG 917 ==
LOC: ED 15:51 → EDHOLD 17:37 → SUATTDRO 17:37 → ICU 18:18 → SSU 06-13 06:21
PROVIDERS: ADMIT Internal Medicine Critical Care Medicine; ATTEND Hospitalist

== ENCOUNTER 2023-08-05 10:36 | Inpatient (IN) ==
[2023-08-05] MEDS: NS 0.9% 1000 ml BAG 1,000 ML IV ONE (12:23)
[2023-08-05] MEDS: Ondansetron 4 mg VIAL 2 MG/ML 2 ml VIAL IV ONE ×2 (12:23→14:05)
[2023-08-05 12:38] LABS: Urine Appearance Turbid; Urine Bilirubin Negative (Negative); Urine Blood 1+ (Negative); Urine Color Light-Yellow; Urine Glucose Negative (Negative); Urine Ketones Negative (Negative); Urine Nitrite Negative (Negative); Urine Protein 2+ (>=100 mg/dL) (Negative); Urine Urobilinogen Negative (Negative)
[2023-08-05 12:45] LABS: Hemoglobin 6.5 g/dL (11.5-14.3); Mean Corpuscular Hemoglobin 30.2 pg (27-33); Mean Corpuscular Hgb Conc 34.4 g/dL (31-36); Mean Corpuscular Volume 87.8 fL (80-97); Mean Platelet Volume 8.9 fL (7.5-11.2); Platelet Count 135 10^3/uL (150-450); Red Blood Count 2.16 10^6/uL (3.63-4.92); Red Cell Distribution Width 18.1 % (12-17); White Blood Count 10.1 10^3/uL (3.8-11.8)
[2023-08-05 12:48] LABS: Urine Bacteria 1+ /HPF (Absent); Urine Red Blood Cell Trace(0-2/hpf) /HPF (0-Trace); Urine Squamous Epithelial Cell Present /HPF (Absent); Urine White Blood Cell 3+(>20/hpf) /HPF (0-Trace)
[2023-08-05 12:54] LABS: Albumin 3.2 g/dL (3.2-5.2); Albumin/Globulin Ratio 1.3 (1-3); C Reactive Protein 211.86 mg/L (<8.01); Calcium 8.1 mg/dL (8.6-10.3); Creatinine, Serum 3.92 mg/dL (0.51-0.95); Globulin 2.4 g/dL (2-4); Magnesium 2.2 mg/dL (1.9-2.7); Potassium 3.2 mmol/L (3.5-5.0); Total Bilirubin 0.4 mg/dL (0.2-1.0); Total Protein 5.6 g/dL (6.4-8.9); eGFR CKD-EPI 11.9 (>60)
[2023-08-05 13:38] LABS: TSH Ultra Thyroid Stim Horm 1.42 mcIU/mL (0.34-5.60)
[2023-08-05 13:46] LABS: ABS Eosinophils 0.1 10^3/uL (0.0-0.5); ABS Lymphocytes 0.2 10^3/uL (1.0-4.8); ABS Monocytes 0.4 10^3/uL (0.0-0.9); ABS Neutrophils 9.5 10^3/uL (1.5-7.6); Eosinophil % 0.9 %; Lymphocyte % 1.8 %
[2023-08-05] MEDS ORDERED: cefTRIAXone 1 gm/50 mL D5W 1 GM/50 ML BAG IV SCH (14:30)
[2023-08-05] MEDS ORDERED: Dextrose 50% Syringe 50 ml 25 GM/50 ML SYRINGE IV PUSH PRN (14:33)
[2023-08-05] MEDS ORDERED: Pantoprazole VIAL 40 MG VIAL IV SCH (16:00)
[2023-08-05] MEDS: Pantoprazole VIAL 40 MG VIAL IV ONE (17:20)
[2023-08-05 18:40] LABS: High Sensitivity Troponin 1 Hr 4060 pg/mL (<15)
[2023-08-05] MEDS ORDERED: Albuterol HFA INHALER 8 gm MDI INH PRN (20:05)
[2023-08-05] MEDS: Pantoprazole VIAL 40 MG VIAL IV SCH (20:48)
[2023-08-05] MEDS: Potassium Chloride LIQUID 20 MEQ/15 ML LIQUID PO SCH (21:11)
[2023-08-05] MEDS: FAMCICLOVIR 250 MG PO SCH (22:09)
[2023-08-06] MEDS: cefTRIAXone 1 gm/50 mL D5W 1 GM/50 ML BAG IV SCH ×2 (00:37→14:55)
[2023-08-06] MEDS: Bumetanide IV 0.25 MG/ML 4 ml VIAL (1 mg) IV SLOW PU ONE (01:00)
[2023-08-06 01:10] LABS: Hematocrit 24.3 % (35-45); Hemoglobin 8.5 g/dL (11.5-14.3); Mean Corpuscular Hemoglobin 29.9 pg (27-33); Mean Corpuscular Hgb Conc 34.8 g/dL (31-36); Mean Corpuscular Volume 85.8 fL (80-97); Mean Platelet Volume 8.9 fL (7.5-11.2); Platelet Count 144 10^3/uL (150-450); Red Blood Count 2.84 10^6/uL (3.63-4.92); Red Cell Distribution Width 18.2 % (12-17); White Blood Count 10.3 10^3/uL (3.8-11.8)
[2023-08-06 07:09] LABS: ABS Lymphocytes 0.2 10^3/uL (1.0-4.8); ABS Monocytes 0.3 10^3/uL (0.0-0.9); ABS Neutrophils 9.7 10^3/uL (1.5-7.6); Anisocytosis 1+; Eosinophil % 0.5 %; Lymphocyte % 1.7 %; Toxic Granulation 3+
[2023-08-06 07:40] LABS: Hematocrit 25.4 % (35-45); Hemoglobin 8.6 g/dL (11.5-14.3); Mean Corpuscular Hemoglobin 29.3 pg (27-33); Mean Corpuscular Hgb Conc 33.8 g/dL (31-36); Mean Corpuscular Volume 86.6 fL (80-97); Mean Platelet Volume 8.4 fL (7.5-11.2); Platelet Count 152 10^3/uL (150-450); Red Blood Count 2.93 10^6/uL (3.63-4.92); Red Cell Distribution Width 18.3 % (12-17)
[2023-08-06 07:55] LABS: Calcium 8.6 mg/dL (8.6-10.3); Creatinine, Serum 4.21 mg/dL (0.51-0.95); Potassium 3.7 mmol/L (3.5-5.0); eGFR CKD-EPI 10.9 (>60)
[2023-08-06 09:43] LABS: ABS Eosinophils 0.1 10^3/uL (0.0-0.5); ABS Lymphocytes 0.2 10^3/uL (1.0-4.8); ABS Monocytes 0.3 10^3/uL (0.0-0.9); ABS Neutrophils 10.4 10^3/uL (1.5-7.6); Eosinophil % 0.9 %; Lymphocyte % 1.8 %; RBC Morphology Normal (Normal)
[2023-08-06] MEDS: Bumetanide IV 0.25 MG/ML 4 ml VIAL (1 mg) IV SLOW PU SCH (09:53)
[2023-08-06 10:20] LABS: Magnesium 2.1 mg/dL (1.9-2.7)
[2023-08-06] MEDS: Fluticasone NASAL SPRAY 50MCG 16 gm SPRAY BTL INTRANASAL SCH (10:27)
[2023-08-06] MEDS: KCL 20 MEQ/100 ML IVPREMIX 20 MEQ/100 ML BAG IV ONE (11:00)
[2023-08-06 12:04] LABS: Hepatitis B Surface Antigen Nonreactive (Nonreactive)
[2023-08-06 14:28] LABS: Hepatitis B Surface Ab Indeterminate (Immune)
[2023-08-06] MEDS: Insulin GLARGINE 100 un/ml 10 ml VIAL SUBCUT ONE (14:54)
[2023-08-06 18:15] LABS: Hematocrit 26.4 % (35-45); Hemoglobin 9.1 g/dL (11.5-14.3); Mean Corpuscular Hgb Conc 34.4 g/dL (31-36); Mean Corpuscular Volume 87.3 fL (80-97); Mean Platelet Volume 8.7 fL (7.5-11.2); Platelet Count 151 10^3/uL (150-450); Red Blood Count 3.02 10^6/uL (3.63-4.92); Red Cell Distribution Width 18.5 % (12-17); White Blood Count 10.5 10^3/uL (3.8-11.8)
[2023-08-06 18:47] LABS: ABS Lymphocytes 0.2 10^3/uL (1.0-4.8); ABS Monocytes 0.3 10^3/uL (0.0-0.9); ABS Neutrophils 9.9 10^3/uL (1.5-7.6); Eosinophil % 0.3 %; Lymphocyte % 1.9 %
[2023-08-06 19:23] LABS: Urine Appearance Turbid; Urine Bilirubin Negative (Negative); Urine Blood Trace (Negative); Urine Color Light-Yellow; Urine Glucose Negative (Negative); Urine Ketones Negative (Negative); Urine Nitrite Negative (Negative); Urine Protein 1+ (>=30 mg/dL) (Negative); Urine Urobilinogen Negative (Negative); Urine pH 5.5 (5.0-8.0)
[2023-08-06 19:42] LABS: Urine Bacteria Absent /HPF (Absent); Urine Red Blood Cell Trace(0-2/hpf) /HPF (0-Trace); Urine Squamous Epithelial Cell Present /HPF (Absent); Urine White Blood Cell 2+(11-20/hpf) /HPF (0-Trace)
[2023-08-07] MEDS: Ondansetron 4 mg VIAL 2 MG/ML 2 ml VIAL IV PRN (00:18)
[2023-08-07 04:30] LABS: Anion Gap 18 mmol/L (2-16); Blood Urea Nitrogen 114 mg/dL (6-24); CO2 Carbon Dioxide 18 mmol/L (22-32); Calcium 7.7 mg/dL (8.6-10.3); Chloride 90 mmol/L (101-111); Creatinine, Serum 4.75 mg/dL (0.51-0.95); Glucose 660 mg/dL (70-100); Magnesium 1.9 mg/dL (1.9-2.7); Potassium 4.3 mmol/L (3.5-5.0); Sodium 126 mmol/L (135-145); eGFR CKD-EPI 9.5 (>60)
[2023-08-07 04:54] LABS: Hematocrit 24.2 % (35-45); Hemoglobin 8.1 g/dL (11.5-14.3); Mean Corpuscular Hemoglobin 29.6 pg (27-33); Mean Corpuscular Hgb Conc 33.5 g/dL (31-36); Mean Corpuscular Volume 88.4 fL (80-97); Mean Platelet Volume 9.3 fL (7.5-11.2); Platelet Count 143 10^3/uL (150-450); Red Blood Count 2.74 10^6/uL (3.63-4.92); Red Cell Distribution Width 18.8 % (12-17)
[2023-08-07 05:30] LABS: ABS Lymphocytes 0.1 10^3/uL (1.0-4.8); ABS Monocytes 0.4 10^3/uL (0.0-0.9); ABS Neutrophils 7.5 10^3/uL (1.5-7.6); Eosinophil % 0.5 %; Lymphocyte % 1.6 %
[2023-08-07 08:53] LABS: Glucose Confirmatory 490 mg/dL (70-100)
[2023-08-07] MEDS ORDERED: Insulin GLARGINE 100 un/ml 10 ml VIAL SUBCUT SCH (09:00)
[2023-08-07] MEDS: Insulin GLARGINE 100 un/ml 10 ml VIAL SUBCUT SCH (09:26)
[2023-08-07] MEDS ORDERED: Midazolam 10 mg/10 ml VIAL 1 mg/ml 10 ml VIAL (10 mg) ONE (09:58)
[2023-08-07] MEDS ORDERED: fentaNYL 100 mcg/2 ml 50 MCG/ML VIAL ONE (09:58)
[2023-08-07] MEDS ORDERED: NS 0.9% 1000 ml BAG 100 ML IV PRN (10:26)
[2023-08-07] MEDS ORDERED: NS 0.9% 1000 ml BAG 200 ML IV PRN (10:26)
[2023-08-07] MEDS: Heparin 1,000 UNIT/ML 10 ml (10,000 UNITS) CATHLAB/DIALYSIS DIALYSIS PRN (13:40)
[2023-08-07] MEDS: cefTRIAXone 1 gm/50 mL D5W 1 GM/50 ML BAG IV SCH (17:54)
[2023-08-07 18:27] LABS: % Iron Saturation 12 % (15-55); .Transferrin 114 mg/dL (203-362); Iron < 20 ug/dL (50-212); Total Iron Binding Capacity 160 mcg/dL (250-450); Unsaturated Iron Binding 140 ug/dL
[2023-08-07 18:45] LABS: Ferritin 528.5 ng/mL (11-307)
[2023-08-08 06:10] LABS: Hemoglobin 8.5 g/dL (11.5-14.3); Mean Corpuscular Hemoglobin 29.4 pg (27-33); Mean Corpuscular Volume 86.5 fL (80-97); Mean Platelet Volume 8.8 fL (7.5-11.2); Platelet Count 151 10^3/uL (150-450); Red Blood Count 2.89 10^6/uL (3.63-4.92); Red Cell Distribution Width 17.9 % (12-17); White Blood Count 5.9 10^3/uL (3.8-11.8)
[2023-08-08 06:22] LABS: Calcium 8.1 mg/dL (8.6-10.3); Creatinine, Serum 4.05 mg/dL (0.51-0.95); Magnesium 1.7 mg/dL (1.9-2.7); Potassium 4.1 mmol/L (3.5-5.0); eGFR CKD-EPI 11.5 (>60)
[2023-08-08 07:00] LABS: Hepatitis B Surface Antigen Nonreactive (Nonreactive)
[2023-08-08 07:35] LABS: ABS Basophils 0.2 10^3/uL (0.0-0.1); ABS Eosinophils 0.1 10^3/uL (0.0-0.5); ABS Lymphocytes 0.2 10^3/uL (1.0-4.8); ABS Monocytes 0.4 10^3/uL (0.0-0.9); Eosinophil % 0.9 %; Lymphocyte % 3.4 %
[2023-08-08 08:47] LABS: Glucose Confirmatory 413 mg/dL (70-100)
[2023-08-08] MEDS ORDERED: Senna TAB 8.6 mg TAB PO PRN (08:59)
[2023-08-08] MEDS: Insulin GLARGINE 100 un/ml 10 ml VIAL SUBCUT SCH (09:58)
[2023-08-08] MEDS: Polyethylene Glycol 3350 17 GM PACKET PO SCH (10:03)
[2023-08-08] MEDS: Magnesium Sulfate 2 gm BAG 2 GM/50 ML BAG IVPB ONE (10:25)
[2023-08-08] MEDS: Albumin Human 25% 25 GM/100 ML BTL IV PRN (15:30)
[2023-08-08 16:14] LABS: High Sensitivity Troponin 1 Hr 4584 pg/mL (<15)
[2023-08-08 22:27] LABS: HDL Cholesterol 9.8 mg/dL
[2023-08-09 06:30] LABS: Hematocrit 29.7 % (35-45); Hemoglobin 10.2 g/dL (11.5-14.3); Mean Corpuscular Hemoglobin 29.7 pg (27-33); Mean Corpuscular Hgb Conc 34.4 g/dL (31-36); Mean Corpuscular Volume 86.2 fL (80-97); Platelet Count 193 10^3/uL (150-450); Red Blood Count 3.45 10^6/uL (3.63-4.92); Red Cell Distribution Width 18.2 % (12-17); White Blood Count 5.6 10^3/uL (3.8-11.8)
[2023-08-09 07:24] LABS: ABS Eosinophils 0.1 10^3/uL (0.0-0.5); ABS Lymphocytes 0.4 10^3/uL (1.0-4.8); ABS Monocytes 0.4 10^3/uL (0.0-0.9); ABS Neutrophils 4.7 10^3/uL (1.5-7.6); Eosinophil % 1.3 %; Lymphocyte % 6.9 %; Nucleated Red Blood Cells % 0.1 %/100WBC (0.0-0.8)
[2023-08-09 07:38] LABS: Calcium 8.1 mg/dL (8.6-10.3); Creatinine, Serum 3.35 mg/dL (0.51-0.95); Magnesium 1.8 mg/dL (1.9-2.7); Potassium 4.4 mmol/L (3.5-5.0); eGFR CKD-EPI 14.4 (>60)
[2023-08-09] MEDS: Insulin GLARGINE 100 un/ml 10 ml VIAL SUBCUT ONE (11:04)
[2023-08-09] MEDS: Magnesium Sulfate 2 gm BAG 2 GM/50 ML BAG IVPB ONE (12:07)
[2023-08-09] MEDS: Clindamycin 600 MG/D5W BAG 600 MG/50 ML BAG IV ONE (14:37)
[2023-08-10 06:21] LABS: Hematocrit 26.2 % (35-45); Hemoglobin 8.8 g/dL (11.5-14.3); Mean Corpuscular Hemoglobin 29.1 pg (27-33); Mean Corpuscular Hgb Conc 33.8 g/dL (31-36); Mean Corpuscular Volume 86.1 fL (80-97); Mean Platelet Volume 8.9 fL (7.5-11.2); Platelet Count 165 10^3/uL (150-450); Red Blood Count 3.04 10^6/uL (3.63-4.92); Red Cell Distribution Width 18.2 % (12-17); White Blood Count 5.5 10^3/uL (3.8-11.8)
[2023-08-10 06:38] LABS: Calcium 7.8 mg/dL (8.6-10.3); Creatinine, Serum 2.89 mg/dL (0.51-0.95); Magnesium 2.1 mg/dL (1.9-2.7); Potassium 4.3 mmol/L (3.5-5.0); eGFR CKD-EPI 17.2 (>60)
[2023-08-10 06:41] LABS: ABS Eosinophils 0.1 10^3/uL (0.0-0.5); ABS Lymphocytes 0.5 10^3/uL (1.0-4.8); ABS Monocytes 0.4 10^3/uL (0.0-0.9); ABS Neutrophils 4.5 10^3/uL (1.5-7.6); ABS Nucleated RBC 0.01 10^3/ul; Eosinophil % 1.6 %; Lymphocyte % 8.4 %; Nucleated Red Blood Cells % 0.1 %/100WBC (0.0-0.8)
[2023-08-10] MEDS: Insulin GLARGINE 100 un/ml 10 ml VIAL SUBCUT SCH (08:42)
[2023-08-11 07:26] LABS: Hematocrit 26.4 % (35-45); Hemoglobin 8.9 g/dL (11.5-14.3); Mean Corpuscular Hgb Conc 33.6 g/dL (31-36); Mean Corpuscular Volume 86.4 fL (80-97); Mean Platelet Volume 9.2 fL (7.5-11.2); Platelet Count 171 10^3/uL (150-450); Red Blood Count 3.05 10^6/uL (3.63-4.92); Red Cell Distribution Width 17.2 % (12-17); White Blood Count 5.8 10^3/uL (3.8-11.8)
[2023-08-11 07:42] LABS: Calcium 7.6 mg/dL (8.6-10.3); Creatinine, Serum 3.21 mg/dL (0.51-0.95); Magnesium 1.9 mg/dL (1.9-2.7); Phosphorus 2.6 mg/dL (2.5-5.0); Potassium 4.4 mmol/L (3.5-5.0); eGFR CKD-EPI 15.1 (>60)
[2023-08-11 08:20] LABS: ABS Eosinophils 0.1 10^3/uL (0.0-0.5); ABS Lymphocytes 0.6 10^3/uL (1.0-4.8); ABS Monocytes 0.4 10^3/uL (0.0-0.9); ABS Neutrophils 4.8 10^3/uL (1.5-7.6); ABS Nucleated RBC 0.01 10^3/ul; Eosinophil % 1.5 %; Lymphocyte % 9.7 %; Nucleated Red Blood Cells % 0.1 %/100WBC (0.0-0.8)
[2023-08-11 14:06] LABS: Hepatitis B Surface Ab Not Immune (Immune)
[2023-08-11] MEDS: Bumetanide IV 0.25 MG/ML 4 ml VIAL (1 mg) ONE ×2 (22:34)
[2023-08-12 06:27] LABS: Calcium 7.6 mg/dL (8.6-10.3); Creatinine, Serum 2.47 mg/dL (0.51-0.95); eGFR CKD-EPI 20.7 (>60)
[2023-08-12 06:33] LABS: Magnesium 1.5 mg/dL (1.9-2.7)
[2023-08-12] MEDS: Magnesium Sulfate 2 gm BAG 2 GM/50 ML BAG IVPB ONE (09:00)
[2023-08-12] MEDS: Dextrose 50% Syringe 50 ml 25 GM/50 ML SYRINGE IV PUSH PRN (13:15)
[2023-08-12] MEDS: Clindamycin 600 MG/D5W BAG 600 MG/50 ML BAG IV ONE (13:36)
[2023-08-12] MEDS ORDERED: Heparin 2 UNITS/ML IVPREMIX 1,000 UNIT/500 ML BAG IV ONE (13:57)
[2023-08-12] MEDS ORDERED: Lidocaine 1% VIAL 10 MG/ML 30 ML VIAL ONE (13:57)
[2023-08-12] MEDS ORDERED: Midazolam 5 mg/5 ml VIAL 1 mg/ml 5 ml VIAL (5 mg) ONE (14:06)
[2023-08-12] MEDS ORDERED: fentaNYL 100 mcg/2 ml 50 MCG/ML VIAL ONE (14:06)
[2023-08-12] MEDS ORDERED: Heparin 1,000 UNIT/ML 10 ml (10,000 UNITS) CATHLAB/DIALYSIS ONE (14:26)
[2023-08-13 06:38] LABS: Calcium 7.7 mg/dL (8.6-10.3); Creatinine, Serum 2.57 mg/dL (0.51-0.95); Potassium 3.8 mmol/L (3.5-5.0); eGFR CKD-EPI 19.8 (>60)
[2023-08-13] MEDS: Insulin GLARGINE 100 un/ml 10 ml VIAL SUBCUT SCH (09:43)
[2023-08-13] MEDS: Magnesium Hydroxide LIQ 30 ML UDC PO SCH (12:47)
[2023-08-14 05:47] LABS: ABS Eosinophils 0.1 10^3/uL (0.0-0.5); ABS Lymphocytes 0.4 10^3/uL (1.0-4.8); ABS Monocytes 0.3 10^3/uL (0.0-0.9); ABS Neutrophils 3.6 10^3/uL (1.5-7.6); ABS Nucleated RBC 0.01 10^3/ul; Eosinophil % 1.4 %; Hematocrit 20.3 % (35-45); Hemoglobin 6.9 g/dL (11.5-14.3); Lymphocyte % 9.7 %; Mean Corpuscular Hemoglobin 29.6 pg (27-33); Mean Corpuscular Hgb Conc 34.1 g/dL (31-36); Mean Platelet Volume 8.8 fL (7.5-11.2); Nucleated Red Blood Cells % 0.2 %/100WBC (0.0-0.8); Platelet Count 204 10^3/uL (150-450); Red Blood Count 2.33 10^6/uL (3.63-4.92); White Blood Count 4.5 10^3/uL (3.8-11.8)
[2023-08-14 06:28] LABS: Creatinine, Serum 2.17 mg/dL (0.51-0.95); Potassium 4.3 mmol/L (3.5-5.0); eGFR CKD-EPI 24.2 (>60)
[2023-08-14 08:26] LABS: Hematocrit 21.8 % (35-45); Hemoglobin 7.3 g/dL (11.5-14.3)
[2023-08-14 20:29] LABS: Hematocrit 21.9 % (35-45); Hemoglobin 7.6 g/dL (11.5-14.3)
[2023-08-14] MEDS: Senna TAB 8.6 mg TAB PO SCH (22:07)
[2023-08-15 05:53] LABS: ABS Eosinophils 0.1 10^3/uL (0.0-0.5); ABS Lymphocytes 0.6 10^3/uL (1.0-4.8); ABS Monocytes 0.3 10^3/uL (0.0-0.9); ABS Neutrophils 4.2 10^3/uL (1.5-7.6); Hematocrit 27.8 % (35-45); Hemoglobin 9.7 g/dL (11.5-14.3); Lymphocyte % 11.8 %; Mean Corpuscular Hgb Conc 34.8 g/dL (31-36); Mean Corpuscular Volume 86.2 fL (80-97); Mean Platelet Volume 9.2 fL (7.5-11.2); Nucleated Red Blood Cells % 0.1 %/100WBC (0.0-0.8); Platelet Count 223 10^3/uL (150-450); Red Blood Count 3.22 10^6/uL (3.63-4.92); Red Cell Distribution Width 16.6 % (12-17); White Blood Count 5.2 10^3/uL (3.8-11.8)
[2023-08-15 05:55] LABS: Calcium 8.5 mg/dL (8.6-10.3); Creatinine, Serum 2.24 mg/dL (0.51-0.95); Magnesium 2.3 mg/dL (1.9-2.7); Potassium 4.9 mmol/L (3.5-5.0); eGFR CKD-EPI 23.3 (>60)
[2023-08-15] MEDS: Bumetanide IV 0.25 MG/ML 4 ml VIAL (1 mg) IV SLOW PU ONE (06:10)
[2023-08-15 12:25] LABS: Hematocrit 26.6 % (35-45); Hemoglobin 9.1 g/dL (11.5-14.3)
[2023-08-15 20:27] LABS: Hematocrit 31.5 % (35-45)
[2023-08-16 07:12] LABS: Hematocrit 25.5 % (35-45); Hemoglobin 8.8 g/dL (11.5-14.3)
[2023-08-16 07:34] LABS: Calcium 8.2 mg/dL (8.6-10.3); Creatinine, Serum 1.98 mg/dL (0.51-0.95); Potassium 4.5 mmol/L (3.5-5.0)
[2023-08-16 08:53] LABS: Glucose Confirmatory 406 mg/dL (70-100)
[2023-08-16 10:26] LABS: Direct Bilirubin 0.3 mg/dL (0.03-0.18); Indirect Bilirubin 0.7 mg/dL (0.3-1.0)
[2023-08-16] MEDS: Bumetanide IV 0.25 MG/ML 10 ml VIAL (2.5 mg) IV SLOW PU SCH (12:49)
[2023-08-16] MEDS: PEG 3000 GI LAVAGE 1 GALLON PO ONE (17:08)
[2023-08-17 07:49] LABS: Hematocrit 25.7 % (35-45); Hemoglobin 8.8 g/dL (11.5-14.3)
[2023-08-17 07:52] LABS: Calcium 8.3 mg/dL (8.6-10.3); Creatinine, Serum 1.8 mg/dL (0.51-0.95); eGFR CKD-EPI 30.3 (>60)
[2023-08-17] MEDS: Insulin GLARGINE 100 un/ml 10 ml VIAL SUBCUT SCH (09:23)
[2023-08-17] MEDS: Magnesium Hydroxide LIQ 30 ML UDC PO SCH (09:25)
[2023-08-17 20:33] LABS: C Reactive Protein 126.96 mg/L (<8.01)
[2023-08-18 06:24] LABS: Hematocrit 26.2 % (35-45); Hemoglobin 9.1 g/dL (11.5-14.3); Mean Corpuscular Hemoglobin 29.9 pg (27-33); Mean Corpuscular Hgb Conc 34.6 g/dL (31-36); Mean Corpuscular Volume 86.4 fL (80-97); Mean Platelet Volume 8.9 fL (7.5-11.2); Platelet Count 262 10^3/uL (150-450); Red Blood Count 3.03 10^6/uL (3.63-4.92); Red Cell Distribution Width 16.8 % (12-17); White Blood Count 3.1 10^3/uL (3.8-11.8)
[2023-08-18 06:42] LABS: Calcium 8.2 mg/dL (8.6-10.3); Creatinine, Serum 1.86 mg/dL (0.51-0.95); Magnesium 1.8 mg/dL (1.9-2.7); Potassium 3.9 mmol/L (3.5-5.0); eGFR CKD-EPI 29.1 (>60)
[2023-08-18 07:00] LABS: ABS Eosinophils 0.1 10^3/uL (0.0-0.5); ABS Lymphocytes 0.5 10^3/uL (1.0-4.8); ABS Monocytes 0.4 10^3/uL (0.0-0.9); ABS Neutrophils 2.1 10^3/uL (1.5-7.6); Lymphocyte % 14.8 %
[2023-08-18] MEDS ORDERED: Propofol 10 MG/ML 20 ML BTL ONE (15:18)
[2023-08-18] MEDS ORDERED: Dextrose 50% Syringe 50 ml 25 GM/50 ML SYRINGE ONE (15:32)
[2023-08-18] MEDS: Dextrose 50% Syringe 50 ml 25 GM/50 ML SYRINGE IV PUSH PRN (15:39)
[2023-08-19 06:56] LABS: ABS Eosinophils 0.1 10^3/uL (0.0-0.5); ABS Lymphocytes 0.5 10^3/uL (1.0-4.8); ABS Monocytes 0.5 10^3/uL (0.0-0.9); ABS Neutrophils 2.2 10^3/uL (1.5-7.6); Eosinophil % 1.6 %; Hematocrit 29.6 % (35-45); Hemoglobin 10.2 g/dL (11.5-14.3); Lymphocyte % 14.5 %; Mean Corpuscular Hemoglobin 29.9 pg (27-33); Mean Corpuscular Hgb Conc 34.3 g/dL (31-36); Mean Corpuscular Volume 87.1 fL (80-97); Mean Platelet Volume 8.5 fL (7.5-11.2); Nucleated Red Blood Cells % 0.1 %/100WBC (0.0-0.8); Platelet Count 326 10^3/uL (150-450); Red Cell Distribution Width 16.7 % (12-17); White Blood Count 3.3 10^3/uL (3.8-11.8)
[2023-08-19 07:12] LABS: Calcium 8.2 mg/dL (8.6-10.3); Creatinine, Serum 1.48 mg/dL (0.51-0.95); Magnesium 1.6 mg/dL (1.9-2.7); Potassium 4.2 mmol/L (3.5-5.0); eGFR CKD-EPI 38.3 (>60)
[2023-08-19] MEDS: Ferric Gluconate IV 250 MG in NS 0.9% 250 ml 200 ML IVPB ONE (14:58)
[2023-08-20 06:30] LABS: ABS Lymphocytes 0.5 10^3/uL (1.0-4.8); ABS Monocytes 0.5 10^3/uL (0.0-0.9); ABS Neutrophils 2.4 10^3/uL (1.5-7.6); Hematocrit 26.6 % (35-45); Hemoglobin 9.2 g/dL (11.5-14.3); Lymphocyte % 14.6 %; Mean Corpuscular Hgb Conc 34.4 g/dL (31-36); Mean Corpuscular Volume 87.2 fL (80-97); Mean Platelet Volume 8.5 fL (7.5-11.2); Platelet Count 284 10^3/uL (150-450); Red Blood Count 3.05 10^6/uL (3.63-4.92); Red Cell Distribution Width 16.6 % (12-17); White Blood Count 3.6 10^3/uL (3.8-11.8)
[2023-08-20 07:20] LABS: Calcium 8.3 mg/dL (8.6-10.3); Creatinine, Serum 1.63 mg/dL (0.51-0.95); Magnesium 1.6 mg/dL (1.9-2.7); Potassium 4.5 mmol/L (3.5-5.0); eGFR CKD-EPI 34.1 (>60)
[2023-08-20] MEDS: Magnesium Sulfate 2 gm BAG 2 GM/50 ML BAG IVPB ONE (09:05)
[2023-08-20] MEDS: Magnesium Sulfate IV 1GM/100ML 1 GM/100 ML BAG IV ONE (10:20)
[2023-08-20] MEDS: Aspirin EC 81 mg TAB.EC (enteric coated) PO SCH (11:56)
[2023-08-20] MEDS: Ferric Gluconate IV 250 MG in NS 0.9% 250 ml 200 ML IVPB ONE (11:56)
[2023-08-21 05:48] LABS: Hematocrit 25.2 % (35-45); Hemoglobin 8.8 g/dL (11.5-14.3); Mean Corpuscular Hemoglobin 30.4 pg (27-33); Mean Corpuscular Hgb Conc 34.9 g/dL (31-36); Mean Corpuscular Volume 87.1 fL (80-97); Mean Platelet Volume 8.2 fL (7.5-11.2); Platelet Count 275 10^3/uL (150-450); Red Blood Count 2.89 10^6/uL (3.63-4.92); Red Cell Distribution Width 16.9 % (12-17)
[2023-08-21 06:28] LABS: Calcium 8.4 mg/dL (8.6-10.3); Creatinine, Serum 1.86 mg/dL (0.51-0.95); Potassium 4.5 mmol/L (3.5-5.0); eGFR CKD-EPI 29.1 (>60)
[2023-08-21 07:48] LABS: ABS Lymphocytes 0.5 10^3/uL (1.0-4.8); ABS Monocytes 0.5 10^3/uL (0.0-0.9); ABS Neutrophils 2.8 10^3/uL (1.5-7.6); ABS Nucleated RBC 0.01 10^3/ul; Eosinophil % 1.1 %; Lymphocyte % 13.2 %; Nucleated Red Blood Cells % 0.2 %/100WBC (0.0-0.8)
[2023-08-21] MEDS: Insulin GLARGINE 100 un/ml 10 ml VIAL SUBCUT SCH (08:16)
[2023-08-21] MEDS ORDERED: Insulin GLARGINE 100 un/ml 10 ml VIAL SUBCUT SCH (09:00)
[2023-08-22 06:11] LABS: Hematocrit 25.4 % (35-45); Hemoglobin 8.7 g/dL (11.5-14.3); Mean Corpuscular Hemoglobin 30.4 pg (27-33); Mean Corpuscular Hgb Conc 34.4 g/dL (31-36); Mean Corpuscular Volume 88.3 fL (80-97); Mean Platelet Volume 8.1 fL (7.5-11.2); Platelet Count 251 10^3/uL (150-450); Red Blood Count 2.88 10^6/uL (3.63-4.92); Red Cell Distribution Width 16.8 % (12-17); White Blood Count 4.1 10^3/uL (3.8-11.8)
[2023-08-22 07:04] LABS: Calcium 8.3 mg/dL (8.6-10.3); Creatinine, Serum 1.64 mg/dL (0.51-0.95); Magnesium 1.8 mg/dL (1.9-2.7); Potassium 3.9 mmol/L (3.5-5.0); eGFR CKD-EPI 33.9 (>60)
[2023-08-22 07:09] LABS: ABS Basophils 0.1 10^3/uL (0.0-0.1); ABS Eosinophils 0.1 10^3/uL (0.0-0.5); ABS Lymphocytes 0.6 10^3/uL (1.0-4.8); ABS Monocytes 0.5 10^3/uL (0.0-0.9); ABS Neutrophils 2.9 10^3/uL (1.5-7.6); ABS Nucleated RBC 0.01 10^3/ul; Eosinophil % 1.3 %; Lymphocyte % 14.7 %; Nucleated Red Blood Cells % 0.1 %/100WBC (0.0-0.8)
[2023-08-23 05:25] LABS: Hematocrit 25.4 % (35-45); Hemoglobin 8.7 g/dL (11.5-14.3); Mean Corpuscular Hemoglobin 30.5 pg (27-33); Mean Corpuscular Hgb Conc 34.4 g/dL (31-36); Mean Corpuscular Volume 88.4 fL (80-97); Mean Platelet Volume 8.3 fL (7.5-11.2); Platelet Count 230 10^3/uL (150-450); Red Blood Count 2.87 10^6/uL (3.63-4.92); Red Cell Distribution Width 16.8 % (12-17); White Blood Count 4.5 10^3/uL (3.8-11.8)
[2023-08-23 05:48] LABS: Calcium 8.4 mg/dL (8.6-10.3); Creatinine, Serum 1.76 mg/dL (0.51-0.95); Magnesium 1.7 mg/dL (1.9-2.7); eGFR CKD-EPI 31.1 (>60)
[2023-08-23 06:09] LABS: ABS Eosinophils 0.1 10^3/uL (0.0-0.5); ABS Lymphocytes 0.6 10^3/uL (1.0-4.8); ABS Monocytes 0.5 10^3/uL (0.0-0.9); ABS Neutrophils 3.3 10^3/uL (1.5-7.6); ABS Nucleated RBC 0.01 10^3/ul; Eosinophil % 1.6 %; Lymphocyte % 13.2 %; Nucleated Red Blood Cells % 0.2 %/100WBC (0.0-0.8)
[2023-08-24] MEDS: Senna TAB 8.6 mg TAB PO PRN (20:19)
[2023-08-25 06:29] LABS: ABS Basophils 0.1 10^3/uL (0.0-0.1); ABS Eosinophils 0.1 10^3/uL (0.0-0.5); ABS Lymphocytes 0.6 10^3/uL (1.0-4.8); ABS Monocytes 0.5 10^3/uL (0.0-0.9); ABS Neutrophils 3.6 10^3/uL (1.5-7.6); ABS Nucleated RBC 0.01 10^3/ul; Eosinophil % 2.1 %; Hematocrit 26.5 % (35-45); Hemoglobin 9.1 g/dL (11.5-14.3); Lymphocyte % 12.6 %; Mean Corpuscular Hemoglobin 30.3 pg (27-33); Mean Corpuscular Hgb Conc 34.2 g/dL (31-36); Mean Corpuscular Volume 88.4 fL (80-97); Mean Platelet Volume 8.3 fL (7.5-11.2); Nucleated Red Blood Cells % 0.1 %/100WBC (0.0-0.8); Platelet Count 234 10^3/uL (150-450); Red Blood Count 2.99 10^6/uL (3.63-4.92); Red Cell Distribution Width 18.2 % (12-17); White Blood Count 4.9 10^3/uL (3.8-11.8)
[2023-08-25 07:45] LABS: Calcium 8.3 mg/dL (8.6-10.3); Creatinine, Serum 2.23 mg/dL (0.51-0.95); Magnesium 1.6 mg/dL (1.9-2.7); Potassium 4.1 mmol/L (3.5-5.0); eGFR CKD-EPI 23.4 (>60)
[2023-08-25] MEDS: Magnesium Sulfate IV 1GM/100ML 1 GM/100 ML BAG IV ONE (09:22)
[2023-08-25] MEDS: Magnesium Sulfate 2 gm BAG 2 GM/50 ML BAG IVPB ONE (10:20)
[2023-08-26] MEDS ORDERED: NS 0.9% 1000 ml BAG 200 ML IV PRN (08:03)
[2023-08-26] MEDS ORDERED: Albumin Human 25% 25 GM/100 ML BTL IV PRN (08:03)
[2023-08-26] MEDS ORDERED: NS 0.9% 1000 ml BAG 100 ML IV PRN (08:03)
[2023-08-27 07:30] LABS: ABS Basophils 0.1 10^3/uL (0.0-0.1); ABS Eosinophils 0.1 10^3/uL (0.0-0.5); ABS Lymphocytes 0.8 10^3/uL (1.0-4.8); ABS Monocytes 0.6 10^3/uL (0.0-0.9); ABS Neutrophils 3.1 10^3/uL (1.5-7.6); ABS Nucleated RBC 0.03 10^3/ul; Eosinophil % 2.8 %; Hematocrit 27.9 % (35-45); Hemoglobin 9.6 g/dL (11.5-14.3); Lymphocyte % 17.2 %; Mean Corpuscular Hemoglobin 30.4 pg (27-33); Mean Corpuscular Hgb Conc 34.3 g/dL (31-36); Mean Corpuscular Volume 88.8 fL (80-97); Mean Platelet Volume 9.2 fL (7.5-11.2); Nucleated Red Blood Cells % 0.6 %/100WBC (0.0-0.8); Platelet Count 203 10^3/uL (150-450); Red Blood Count 3.14 10^6/uL (3.63-4.92); Red Cell Distribution Width 18.1 % (12-17); White Blood Count 4.7 10^3/uL (3.8-11.8)
[2023-08-27 07:52] LABS: Calcium 8.5 mg/dL (8.6-10.3); Creatinine, Serum 1.97 mg/dL (0.51-0.95); Magnesium 1.7 mg/dL (1.9-2.7); Potassium 4.4 mmol/L (3.5-5.0); eGFR CKD-EPI 27.2 (>60)
[2023-08-27] MEDS: Magnesium Sulfate 2 gm BAG 2 GM/50 ML BAG IVPB ONE (09:39)
[2023-08-27] MEDS: Heparin 1,000 UNIT/ML 10 ml (10,000 UNITS) CATHLAB/DIALYSIS DIALYSIS PRN (14:00)
[2023-08-27 17:37] VITALS: BP 175/70
== END 2023-08-27 18:55 | disposition home or self-care (01) | DRG 871 ==
LOC: ED 10:36 → EDHOLD 10:36 → MED 14:41 → SUATTDRO 08-06 13:47
PROVIDERS: ADMIT Internal Medicine; ATTEND Internal Medicine

== ENCOUNTER 2023-11-11 19:08 | Inpatient (IN) ==
[2023-11-11 19:46] LABS: ABS Lymphocytes 0.6 10^3/uL (1.0-4.8); ABS Monocytes 0.6 10^3/uL (0.0-0.9); ABS Neutrophils 7.8 10^3/uL (1.5-7.6); ABS Nucleated RBC 0.01 10^3/ul; Eosinophil % 0.1 %; Hemoglobin 8.3 g/dL (11.5-14.3); Lymphocyte % 6.1 %; Mean Corpuscular Hemoglobin 33.3 pg (27-33); Mean Corpuscular Hgb Conc 34.4 g/dL (31-36); Mean Corpuscular Volume 96.6 fL (80-97); Mean Platelet Volume 9.8 fL (7.5-11.2); Nucleated Red Blood Cells % 0.1 %/100WBC (0.0-0.8); Platelet Count 157 10^3/uL (150-450); Red Blood Count 2.49 10^6/uL (3.63-4.92)
[2023-11-11 19:56] LABS: Activated Partial Thrombo Time 27.9 seconds (26.0-38.0); INR 1.16 (0.83-1.13)
[2023-11-11 20:30] LABS: Albumin 4.3 g/dL (3.2-5.2); C Reactive Protein 10.47 mg/L (<8.01); Creatinine, Serum 2.83 mg/dL (0.51-0.95); Globulin 2.1 g/dL (2-4); Potassium 3.9 mmol/L (3.5-5.0); Total Bilirubin 0.6 mg/dL (0.2-1.0); Total Protein 6.4 g/dL (6.4-8.9); eGFR CKD-EPI 17.6 (>60)
[2023-11-11 21:16] LABS: High Sensitivity Troponin 1 Hr 2309 pg/mL (<15)
[2023-11-11] MEDS: Albuterol/Ipratropium NEB.SOL (2.5/0.5 MG) 3 ML NEB.SOLN INH ONE (22:43)
[2023-11-11] MEDS ORDERED: Carvedilol 12.5 MG TAB (NF) PO ONE (23:17)
[2023-11-12] MEDS: Iodixanol (CONTRAST) 320 MG/ML 100 ML SDV IV ONE (00:11)
[2023-11-12] MEDS ORDERED: Albuterol HFA INHALER 8 gm MDI INH PRN (04:17)
[2023-11-12] MEDS: Ondansetron ODT 4 mg TAB 4 MG TAB PO PRN (04:38)
[2023-11-12 05:10] LABS: ABS Basophils 0.1 10^3/uL (0.0-0.1); ABS Lymphocytes 0.6 10^3/uL (1.0-4.8); ABS Monocytes 0.6 10^3/uL (0.0-0.9); ABS Neutrophils 6.6 10^3/uL (1.5-7.6); Eosinophil % 0.2 %; Hematocrit 22.1 % (35-45); Hemoglobin 7.6 g/dL (11.5-14.3); Lymphocyte % 7.7 %; Mean Corpuscular Hemoglobin 33.2 pg (27-33); Mean Corpuscular Hgb Conc 34.4 g/dL (31-36); Mean Corpuscular Volume 96.6 fL (80-97); Mean Platelet Volume 9.9 fL (7.5-11.2); Nucleated Red Blood Cells % 0.1 %/100WBC (0.0-0.8); Platelet Count 127 10^3/uL (150-450); Red Blood Count 2.29 10^6/uL (3.63-4.92); Red Cell Distribution Width 16.1 % (12-17); White Blood Count 7.9 10^3/uL (3.8-11.8)
[2023-11-12 05:17] LABS: Activated Partial Thrombo Time 27.4 seconds (26.0-38.0); INR 1.16 (0.83-1.13)
[2023-11-12 06:12] LABS: Calcium 8.7 mg/dL (8.6-10.3); Creatinine, Serum 3.12 mg/dL (0.51-0.95); Magnesium 1.7 mg/dL (1.9-2.7); Potassium 3.6 mmol/L (3.5-5.0); eGFR CKD-EPI 15.7 (>60)
[2023-11-12] MEDS: Ondansetron 4 mg VIAL 2 MG/ML 2 ml VIAL IV ONE (06:19)
[2023-11-12 06:28] LABS: TSH Ultra Thyroid Stim Horm 1.99 mcIU/mL (0.34-5.60)
[2023-11-12] MEDS: Heparin 5000 UNITS/ML 1 mL VIAL IV SCH (06:43)
[2023-11-12 06:45] LABS: High Sensitivity Troponin 1 Hr 11690 pg/mL (<15)
[2023-11-12] MEDS: Heparin DRIP 25,000 UNITS BAG 25,000 UNITS/250 ML BAG IV SCH (06:46)
[2023-11-12] MEDS: Potassium Chlor 20 meq TAB.ER PO ONE (07:53)
[2023-11-12] MEDS: Magnesium Sulfate 2 gm BAG 2 GM/50 ML BAG IVPB ONE (07:55)
[2023-11-12 08:42] LABS: Phosphorus 4.3 mg/dL (2.5-5.0)
[2023-11-12] MEDS ORDERED: Aspirin EC 81 mg TAB.EC (enteric coated) PO SCH (09:00)
[2023-11-12] MEDS ORDERED: Heparin 5000 UNITS/ML 1 mL VIAL SUBCUT SCH (09:00)
[2023-11-12] MEDS ORDERED: NS 0.9% 1000 ml BAG 100 ML IV PRN (09:07)
[2023-11-12] MEDS ORDERED: NS 0.9% 1000 ml BAG 200 ML IV PRN (09:07)
[2023-11-12] MEDS: Heparin 1,000 UNIT/ML 10 ml (10,000 UNITS) CATHLAB/DIALYSIS DIALYSIS PRN (13:10)
[2023-11-12 13:56] LABS: High Sensitivity Troponin 1 Hr 11052 pg/mL (<15)
[2023-11-12 15:09] LABS: Hepatitis B Surface Antigen Nonreactive (Nonreactive)
[2023-11-12] MEDS ORDERED: Vancomycin per Pharmacy 1 EA NOTE FOLLOW UP PRN (17:13)
[2023-11-12] MEDS ORDERED: Dextrose 50% Syringe 50 ml 25 GM/50 ML SYRINGE IV PUSH PRN (17:20)
[2023-11-12] MEDS ORDERED: Zosyn per Pharmacy NOTE FOLLOW UP SCH (18:00)
[2023-11-12] MEDS ORDERED: Vancomycin 1,250 MG in NS 0.9% 250 ml 250 ML IVPB SCH (18:00)
[2023-11-12] MEDS: Vancomycin 1,000 MG - ED ONCE IVPB ONE (18:03)
[2023-11-12 18:34] LABS: Hepatitis B Surface Ab Indeterminate (Immune)
[2023-11-12] MEDS: Piperacillin/Tazobac 3.375 BAG 3.375 GM/100 ML BAG IV ONE (22:34)
[2023-11-13] MEDS: Ondansetron 4 mg VIAL 2 MG/ML 2 ml VIAL IV PRN ×2 (00:52→04:04)
[2023-11-13] MEDS: ZOSYN 3.375 GM Q12H per EXTENDED INFUSION IV SCH (02:42)
[2023-11-13] MEDS: Vancomycin Random Level NOTE FOLLOW UP ONE (06:00)
[2023-11-13 07:36] LABS: Hematocrit 24.4 % (35-45); Hemoglobin 8.1 g/dL (11.5-14.3); Mean Corpuscular Hemoglobin 33.2 pg (27-33); Mean Corpuscular Hgb Conc 33.2 g/dL (31-36); Red Blood Count 2.44 10^6/uL (3.63-4.92); Red Cell Distribution Width 17.2 % (12-17); White Blood Count 7.8 10^3/uL (3.8-11.8)
[2023-11-13 08:47] LABS: ABS Lymphocytes 0.2 10^3/uL (1.0-4.8); ABS Monocytes 0.4 10^3/uL (0.0-0.9); ABS Neutrophils 7.1 10^3/uL (1.5-7.6); Lymphocyte % 2.9 %; Mean Platelet Volume 11.1 fL (7.5-11.2); Platelet Count 95 10^3/uL (150-450)
[2023-11-13 09:02] LABS: C Reactive Protein 65.91 mg/L (<8.01); Calcium 8.1 mg/dL (8.6-10.3); Creatinine, Serum 3.37 mg/dL (0.51-0.95); Magnesium 1.8 mg/dL (1.9-2.7); Phosphorus 5.9 mg/dL (2.5-5.0); Potassium 5.3 mmol/L (3.5-5.0); Vancomycin Random 13.4 mcg/mL; eGFR CKD-EPI 14.3 (>60)
[2023-11-13] MEDS ORDERED: Dextrose 50% Syringe 50 ml 25 GM/50 ML SYRINGE IV PUSH PRN ×2 (09:26→21:35)
[2023-11-13 09:55] LABS: PCO2 Arterial 35 mmHg (35-45)
[2023-11-13 09:56] LABS: PO2 Arterial 59 mmHg (80-100)
[2023-11-13] MEDS ORDERED: FAMCICLOVIR 250 MG PO SCH (12:00)
[2023-11-13] MEDS: Aspirin EC 81 mg TAB.EC (enteric coated) PO SCH (12:09)
[2023-11-13] MEDS: Magnesium Sulfate 2 gm BAG 2 GM/50 ML BAG IVPB ONE (12:46)
[2023-11-13] MEDS: FAMCICLOVIR 250 MG PO SCH (16:19)
[2023-11-13 17:10] LABS: Glucose Confirmatory 409 mg/dL (70-100)
[2023-11-13] MEDS: Insulin GLARGINE 100 un/ml 10 ml VIAL SUBCUT SCH (17:40)
[2023-11-13] MEDS ORDERED: Vancomycin 750 MG in NS 0.9% 250 ML IVPB ONE (18:00)
[2023-11-13] MEDS: Vancomycin 1000 MG in NS 0.9% 250 ML IVPB ONE (19:49)
[2023-11-13] MEDS ORDERED: Insulin GLARGINE 100 un/ml 10 ml VIAL SUBCUT ONE (21:00)
[2023-11-13 21:30] LABS: Glucose Confirmatory 439 mg/dL (70-100)
[2023-11-13] MEDS: Insulin GLARGINE 100 un/ml 10 ml VIAL SUBCUT ONE (21:53)
[2023-11-14 05:52] LABS: ABS Basophils 0.1 10^3/uL (0.0-0.1); ABS Lymphocytes 0.3 10^3/uL (1.0-4.8); ABS Monocytes 0.6 10^3/uL (0.0-0.9); ABS Neutrophils 5.9 10^3/uL (1.5-7.6); ABS Nucleated RBC 0.01 10^3/ul; Eosinophil % 0.4 %; Hematocrit 25.5 % (35-45); Hemoglobin 8.8 g/dL (11.5-14.3); Lymphocyte % 3.9 %; Mean Corpuscular Hgb Conc 34.6 g/dL (31-36); Mean Corpuscular Volume 95.4 fL (80-97); Mean Platelet Volume 10.7 fL (7.5-11.2); Nucleated Red Blood Cells % 0.1 %/100WBC (0.0-0.8); Platelet Count 127 10^3/uL (150-450); Red Blood Count 2.68 10^6/uL (3.63-4.92); White Blood Count 6.9 10^3/uL (3.8-11.8)
[2023-11-14 06:24] LABS: Calcium 8.1 mg/dL (8.6-10.3); Creatinine, Serum 3.56 mg/dL (0.51-0.95); Potassium 4.1 mmol/L (3.5-5.0); Vancomycin Random 22.2 mcg/mL; eGFR CKD-EPI 13.4 (>60)
[2023-11-14 08:41] LABS: Magnesium 2.4 mg/dL (1.9-2.7)
[2023-11-14] MEDS ORDERED: Insulin GLARGINE 100 un/ml 10 ml VIAL SUBCUT SCH (09:00)
[2023-11-14 09:36] LABS: Phosphorus 4.4 mg/dL (2.5-5.0)
[2023-11-14] MEDS: Albumin Human 25% 25 GM/100 ML BTL IV PRN (09:53)
[2023-11-14] MEDS: Nitroglycerin 0.6 mg TAB SL ONE (15:26)
[2023-11-14 17:07] LABS: ABS Lymphocytes 0.2 10^3/uL (1.0-4.8); ABS Monocytes 0.4 10^3/uL (0.0-0.9); ABS Neutrophils 7.9 10^3/uL (1.5-7.6); Eosinophil % 0.4 %; Hemoglobin 9.4 g/dL (11.5-14.3); Lymphocyte % 2.3 %; Mean Corpuscular Hemoglobin 33.2 pg (27-33); Mean Corpuscular Hgb Conc 34.7 g/dL (31-36); Mean Corpuscular Volume 95.6 fL (80-97); Mean Platelet Volume 10.9 fL (7.5-11.2); Platelet Count 142 10^3/uL (150-450); Red Blood Count 2.82 10^6/uL (3.63-4.92); White Blood Count 8.5 10^3/uL (3.8-11.8)
[2023-11-14 17:31] LABS: High Sensitivity Troponin 1 Hr 7212 pg/mL (<15)
[2023-11-14] MEDS: Heparin 5000 UNITS/ML 1 mL VIAL SUBCUT SCH (17:31)
[2023-11-14] MEDS: Insulin GLARGINE 100 un/ml 10 ml VIAL SUBCUT SCH (21:19)
[2023-11-15 06:25] LABS: ABS Lymphocytes 0.4 10^3/uL (1.0-4.8); ABS Monocytes 0.7 10^3/uL (0.0-0.9); ABS Neutrophils 5.4 10^3/uL (1.5-7.6); Eosinophil % 0.4 %; Hematocrit 25.7 % (35-45); Lymphocyte % 5.6 %; Mean Corpuscular Hemoglobin 33.2 pg (27-33); Mean Corpuscular Hgb Conc 34.9 g/dL (31-36); Mean Platelet Volume 10.7 fL (7.5-11.2); Platelet Count 132 10^3/uL (150-450); Red Blood Count 2.71 10^6/uL (3.63-4.92); Red Cell Distribution Width 16.1 % (12-17); White Blood Count 6.5 10^3/uL (3.8-11.8)
[2023-11-15 06:44] LABS: Creatinine, Serum 3.72 mg/dL (0.51-0.95); Magnesium 1.9 mg/dL (1.9-2.7); Phosphorus 3.6 mg/dL (2.5-5.0); Potassium 3.7 mmol/L (3.5-5.0); Vancomycin Random 16.8 mcg/mL; eGFR CKD-EPI 12.7 (>60)
[2023-11-15] MEDS: Vancomycin Random Level NOTE FOLLOW UP ONE (07:40)
[2023-11-15 10:32] LABS: C Reactive Protein 44.7 mg/L (<8.01)
[2023-11-15] MEDS: Anidulafungin 200 MG in NS 0.9% 250 ml 200 ML IVPB ONE (11:55)
[2023-11-15 12:06] LABS: Erythrocyte Sed Rate 9 mm/Hr (0-29)
[2023-11-15 13:42] LABS: High Sensitivity Troponin 1 Hr 3871 pg/mL (<15)
[2023-11-15] MEDS: Fluconazole 200 MG IVPREMIX 200 MG/100 ML BAG IVPB ONE (20:03)
[2023-11-15] MEDS: FLUCONAZOLE 200 MG IVPB ONE (23:03)
[2023-11-16] MEDS: hydrALAZINE 20 mg/ml 1 ML Vial IV IV SLOW PU PRN (05:42)
[2023-11-16 06:06] LABS: ABS Basophils 0.1 10^3/uL (0.0-0.1); ABS Eosinophils 0.1 10^3/uL (0.0-0.5); ABS Lymphocytes 0.7 10^3/uL (1.0-4.8); ABS Monocytes 0.8 10^3/uL (0.0-0.9); ABS Neutrophils 5.3 10^3/uL (1.5-7.6); Eosinophil % 0.7 %; Hematocrit 23.7 % (35-45); Hemoglobin 8.3 g/dL (11.5-14.3); Lymphocyte % 10.2 %; Mean Corpuscular Hemoglobin 33.5 pg (27-33); Mean Corpuscular Hgb Conc 35.1 g/dL (31-36); Mean Corpuscular Volume 95.4 fL (80-97); Mean Platelet Volume 10.5 fL (7.5-11.2); Platelet Count 123 10^3/uL (150-450); Red Blood Count 2.48 10^6/uL (3.63-4.92); Red Cell Distribution Width 15.6 % (12-17); White Blood Count 6.9 10^3/uL (3.8-11.8)
[2023-11-16 06:36] LABS: Creatinine, Serum 4.86 mg/dL (0.51-0.95); Magnesium 1.8 mg/dL (1.9-2.7); Phosphorus 3.1 mg/dL (2.5-5.0); Potassium 3.4 mmol/L (3.5-5.0); eGFR CKD-EPI 9.2 (>60)
[2023-11-16 08:31] LABS: Ferritin 337.3 ng/mL (11-307)
[2023-11-16] MEDS: Magnesium Sulfate 2 gm BAG 2 GM/50 ML BAG IVPB ONE (08:49)
[2023-11-16] MEDS: Potassium Chlor 20 meq TAB.ER PO ONE (08:50)
[2023-11-16 09:11] LABS: Osmolality Serum 287 mOsm/kg (275-295)
[2023-11-16] MEDS: Anidulafungin 100 MG in NS 0.9% 100 ml BAG 100 ML IVPB SCH (11:42)
[2023-11-16] MEDS: Metoclopramide 5 MG/ML VIAL (10 mg) IV SLOW PU ONE (11:42)
[2023-11-16 15:20] LABS: Anaplasma phagocytophilum Negative (Negative); B. miyamotoi PCR, B Negative (Negative); Babesia divergens/MO-1 Negative (Negative); Babesia ducani Negative (Negative); Ehrlichia chaffeensis Negative (Negative); Ehrlichia ewingii/canis Negative (Negative); Ehrlichia muris eauclairensis Negative (Negative)
[2023-11-17 05:29] LABS: ABS Basophils 0.1 10^3/uL (0.0-0.1); ABS Eosinophils 0.1 10^3/uL (0.0-0.5); ABS Lymphocytes 0.7 10^3/uL (1.0-4.8); ABS Monocytes 0.7 10^3/uL (0.0-0.9); ABS Nucleated RBC 0.02 10^3/ul; Eosinophil % 0.7 %; Hematocrit 26.4 % (35-45); Lymphocyte % 8.3 %; Mean Corpuscular Hgb Conc 34.1 g/dL (31-36); Mean Corpuscular Volume 96.6 fL (80-97); Mean Platelet Volume 10.9 fL (7.5-11.2); Nucleated Red Blood Cells % 0.2 %/100WBC (0.0-0.8); Platelet Count 155 10^3/uL (150-450); Red Blood Count 2.73 10^6/uL (3.63-4.92); Red Cell Distribution Width 15.9 % (12-17); White Blood Count 8.6 10^3/uL (3.8-11.8)
[2023-11-17 06:23] LABS: Anion Gap 12 mmol/L (2-16); Blood Urea Nitrogen 61 mg/dL (6-24); CO2 Carbon Dioxide 20 mmol/L (22-32); Calcium 8.4 mg/dL (8.6-10.3); Chloride 96 mmol/L (101-111); Glucose 202 mg/dL (70-100); Magnesium 2.5 mg/dL (1.9-2.7); Sodium 128 mmol/L (135-145); Vancomycin Random 13.3 mcg/mL; eGFR CKD-EPI 8.1 (>60)
[2023-11-17 06:41] LABS: PCO2 Arterial 31 mmHg (35-45); PO2 Arterial 73 mmHg (80-100)
[2023-11-17] MEDS: Vancomycin Random Level NOTE FOLLOW UP ONE (08:23)
[2023-11-17] MEDS: Vancomycin 500 MG in NS 0.9% 250 ML IVPB ONE (13:08)
[2023-11-17] MEDS ORDERED: Dextrose 50% Syringe 50 ml 25 GM/50 ML SYRINGE IV PUSH PRN (16:01)
[2023-11-17] MEDS: Morphine 2 MG/ML SYRINGE IV ONE (17:06)
[2023-11-17] MEDS: Morphine 2 MG/ML SYRINGE ONE (17:11)
[2023-11-17 17:47] LABS: Body Fluid Source Cerebral Spinal
[2023-11-17 18:10] LABS: CSF Glucose 52 mg/dL (40-70)
[2023-11-17 18:27] LABS: Body Fluid Mono 6 %; Body Fluid Total Cells Counted 200
[2023-11-17 18:29] LABS: Body Fluid Appearance Clear; Body Fluid Color Colorless; CSF Tube # 4
[2023-11-17 18:35] LABS: CSF Body Fluid WBC 778 /mcL
[2023-11-17] MEDS: Fluconazole 400 MG IVPREMIX 400 MG/200 ML BAG IVPB ONE (19:57)
[2023-11-17 21:04] LABS: Potassium Redraw 3.8 mmol/L (3.5-5.0)
[2023-11-17] MEDS: Ampicillin ADVAN 2 GM in NS 0.9% 100 ml BAG 100 ML IVPB SCH (21:36)
[2023-11-17] MEDS: Ondansetron 4 mg VIAL 2 MG/ML 2 ml VIAL IV PRN (21:45)
[2023-11-17 22:59] LABS: HIV 4th Generation Nonreactive (Nonreactive)
[2023-11-18] MEDS ORDERED: Vancomycin Random Level NOTE FOLLOW UP ONE (06:00)
[2023-11-18 07:18] LABS: ABS Eosinophils 0.2 10^3/uL (0.0-0.5); ABS Lymphocytes 0.5 10^3/uL (1.0-4.8); ABS Monocytes 0.7 10^3/uL (0.0-0.9); ABS Neutrophils 4.9 10^3/uL (1.5-7.6); ABS Nucleated RBC 0.01 10^3/ul; Eosinophil % 2.8 %; Hematocrit 25.8 % (35-45); Lymphocyte % 7.4 %; Mean Corpuscular Hemoglobin 33.3 pg (27-33); Mean Corpuscular Hgb Conc 34.9 g/dL (31-36); Mean Corpuscular Volume 95.4 fL (80-97); Mean Platelet Volume 10.1 fL (7.5-11.2); Nucleated Red Blood Cells % 0.1 %/100WBC (0.0-0.8); Platelet Count 149 10^3/uL (150-450); Red Cell Distribution Width 16.1 % (12-17); White Blood Count 6.3 10^3/uL (3.8-11.8)
[2023-11-18 07:24] LABS: Calcium 8.3 mg/dL (8.6-10.3); Creatinine, Serum 4.3 mg/dL (0.51-0.95); Potassium 3.5 mmol/L (3.5-5.0); eGFR CKD-EPI 10.7 (>60)
[2023-11-18] MEDS: Cefepime 1 GM in Dextrose 1 GM/50 ML BAG IV SCH (10:40)
[2023-11-18] MEDS ORDERED: Clindamycin 600 MG/NS BAG(*) 600 MG/50 ML BAG ONE (11:15)
[2023-11-18] MEDS ORDERED: Heparin 2 UNITS/ML IVPREMIX 1,000 UNIT/500 ML BAG IV ONE (11:19)
[2023-11-18] MEDS ORDERED: Midazolam 5 mg/5 ml VIAL 1 mg/ml 5 ml VIAL (5 mg) ONE (11:38)
[2023-11-18] MEDS ORDERED: Lidocaine 1% MPF 5 ML VIAL ONE (11:38)
[2023-11-18] MEDS ORDERED: Iohexol 300 (CONTRAST) 10 ML SDV ONE (11:38)
[2023-11-18] MEDS ORDERED: fentaNYL 100 mcg/2 ml 50 MCG/ML VIAL ONE (11:38)
[2023-11-18] MEDS: Clindamycin 600 MG/D5W BAG 600 MG/50 ML BAG IV ONE (11:41)
[2023-11-18] MEDS ORDERED: Heparin 1,000 UNIT/ML 10 ml (10,000 UNITS) CATHLAB/DIALYSIS ONE (12:10)
[2023-11-18] MEDS: FAMCICLOVIR 250 MG PO SCH (15:12)
[2023-11-18] MEDS: D5W IVPB SCH (17:33)
[2023-11-18] MEDS: AMPHOTERICIN B LIPOSOME IVPB SCH (17:33)
[2023-11-18] MEDS: Acetaminophen IV 1 GM/100ML 1,000 MG/100 ML BAG IV ONE (17:42)
[2023-11-19 06:09] LABS: ABS Eosinophils 0.1 10^3/uL (0.0-0.5); ABS Lymphocytes 0.3 10^3/uL (1.0-4.8); ABS Monocytes 0.6 10^3/uL (0.0-0.9); ABS Neutrophils 6.5 10^3/uL (1.5-7.6); ABS Nucleated RBC 0.01 10^3/ul; Eosinophil % 1.4 %; Hematocrit 32.7 % (35-45); Hemoglobin 11.2 g/dL (11.5-14.3); Lymphocyte % 4.1 %; Mean Corpuscular Hgb Conc 34.2 g/dL (31-36); Mean Corpuscular Volume 96.7 fL (80-97); Mean Platelet Volume 10.6 fL (7.5-11.2); Nucleated Red Blood Cells % 0.1 %/100WBC (0.0-0.8); Platelet Count 185 10^3/uL (150-450); Red Blood Count 3.38 10^6/uL (3.63-4.92); White Blood Count 7.6 10^3/uL (3.8-11.8)
[2023-11-19 06:28] LABS: Albumin 3.9 g/dL (3.2-5.2); Albumin/Globulin Ratio 1.8 (1-3); Calcium 8.6 mg/dL (8.6-10.3); Creatinine, Serum 3.97 mg/dL (0.51-0.95); Globulin 2.2 g/dL (2-4); Magnesium 1.9 mg/dL (1.9-2.7); Potassium 4.3 mmol/L (3.5-5.0); Total Bilirubin 0.8 mg/dL (0.2-1.0); Total Protein 6.1 g/dL (6.4-8.9); eGFR CKD-EPI 11.7 (>60)
[2023-11-19 11:17] VITALS: BP 126/51
[2023-11-19 15:45] LABS: CSF Cryptococcus Antigen Titer >=1:2560 (Negative)
[2023-11-19] MEDS: Acetaminophen IV 1 GM/100ML 1,000 MG/100 ML BAG IV PRN (21:19)
[2023-11-20] MEDS: Ondansetron 4 mg VIAL 2 MG/ML 2 ml VIAL IV PRN (18:45)
[2023-11-21] MEDS ORDERED: LORazepam 2 mg VIAL 1 ml IV PUSH ONE (10:55)
[2023-11-21] MEDS ORDERED: Lorazepam PYXIS KEY PRN (10:55)
[2023-11-21] MEDS: Haloperidol 5 mg/ml SDV IV/IM 5 MG/ML AMP IV SLOW PU ONE (11:04)
== END 2023-11-21 11:11 | disposition hospice, home (50) | DRG 280 ==
LOC: ED 19:08 → EDHOLD 19:08 → SUATTDRO 11-12 02:38 → OBSVTOIN 11-12 02:38 → MEDTELE 11-12 11:38 → ICU 11-17 06:43 → MEDTELE 11-17 17:26
PROVIDERS: ADMIT Student in an Organized Health Care Education/Training Program; ATTEND Internal Medicine